=== PATIENT | male | born 1960 | race Caucasian/White ===

== ENCOUNTER 2016-06-24 22:53 | Inpatient (IN) | payer OTHER ==
[~2016-06-24] VITALS: Ht 172.7 cm; Wt 74.0 kg
[~2016-06-24 22:53] MED LIST: ALBUMIN HUMAN 5% 12.5 G/250 ML VIAL. IV ONE; FENTANYL PF 100 MCG/2 ML VIAL. ONE; IODIXANOL 320 MG/ML 100 ML VIAL. ONE; LIDOCAINE 2% 20 ML VIAL. ONE; MIDAZOLAM HCL 2 MG/2 ML VIAL. ONE; NITROGLYCERIN 50 MG/250 ML IV ONE
[2016-06-24 23:35] VITALS: BP 135/98
[2016-06-24 23:45] VITALS: BP 152/100
[2016-06-24] MEDS ORDERED: TIROFIBAN 12.5MG -0.9% NS 250 ML IV PRN (23:45)
[2016-06-24 23:59] VITALS: BP 158/109
[2016-06-25] VITALS (20 sets, daily range): BP systolic 99–163; BP diastolic 66–108
[2016-06-25] MEDS ORDERED: NITROGLYCERIN PREMIX 250 ML IV SCH
[2016-06-25] MEDS ORDERED: HEPARIN for IV BOLUS 10,000 UNIT/10 ML VIAL. IV PRN
[2016-06-25] MEDS ORDERED: NITROGLYCERIN PREMIX 250 ML IV PRN (00:15)
[2016-06-25] MEDS: IV NORMAL SALINE 1000ML BAG 1,000 ML IV SCH ×2 (00:26→16:40)
[2016-06-25 00:27] LABS: HEMOGLOBIN 15.6 g/dL (13.0-17.5); RED BLOOD COUNT 5.39 x10^6/uL (4.30-5.70); RED CELL DISTRIBUTION WIDTH 14.4 % (11.5-14.5); WHITE BLOOD COUNT 13.4 x10^3/uL (4.0-11.0)
[2016-06-25] MEDS: HEPARIN 25,000UTS/500ML PREMIX 500 ML IV PRN ×2 (00:27→22:53)
[2016-06-25 00:36] LABS: INR 1.1 (0.8-1.1); PROTHROMBIN TIME PATIENT 13.2 SEC (11.7-14.0)
[2016-06-25] MEDS ORDERED: NIAC500T PO (01:13)
[2016-06-25] MEDS ORDERED: ASPI1TAB30 PO (01:13)
[2016-06-25] MEDS ORDERED: INFLUENZA VAX SCREEN BY RX. MC ONE (02:00)
[2016-06-25] MEDS ORDERED: PNEUMOCOCCAL VAX SCREEN BY RX. MC ONE (02:00)
[2016-06-25 06:58] LABS: HEMATOCRIT 44.8 % (39.0-53.0); HEMOGLOBIN 14.6 g/dL (13.0-17.5); RED BLOOD COUNT 5.18 x10^6/uL (4.30-5.70); RED CELL DISTRIBUTION WIDTH 14.5 % (11.5-14.5)
[2016-06-25 07:19] LABS: CALCIUM 8.5 mg/dL (8.5-10.1); CREATININE 1.1 mg/dL (0.7-1.3); MAGNESIUM 1.8 mg/dL (1.8-2.4); POTASSIUM 3.8 mmol/L (3.5-5.1)
[2016-06-25] MEDS ORDERED: ONDANSETRON PF 4 MG/2 ML VIAL. ONE (07:45)
[2016-06-25] MEDS ORDERED: ONDANSETRON PF 4 MG/2 ML VIAL. IV PRN ×2 (08:00→15:30)
--- NOTE | 2016-06-25 08:48 | PDOC1 ---
History and Physical Past Medical History Cardiovascular: CAD Past Surgical History Past Surgical History: Other (hernia) Family History Family History CVA, CAD Social History Smoke: No ALCOHOL: rare Current Medications Current Medications Current Medications Medications (Trade) Dose Ordered Sig/Hayden Start Time Stop Time Status Last Admin Dose Admin Famotidine (Pepcid) 20 mg BID 06/25/16 09:00 Fentanyl Citrate (Fentanyl 2ml Vial) 100 mcg STK-MED ONCE 06/24/16 22:00 06/25/16 08:29 DC Heparin Sodium (Porcine) 1850 unit 1,850 unit PRN Q6HRS PRN 06/25/16 00:00 06/25/16 07:53 1,850 UNIT Heparin Sodium/ Dextrose 500 ml @ 0 mls/hr CONT PRN 06/25/16 00:00 06/25/16 00:27 17.574 MLS/HR Heparin Sodium/ Sodium Chloride 2,000 unit STK-MED ONCE 06/24/16 22:00 06/25/16 08:29 DC Influenza Virus Vaccine Quadrival (Fluarix Quad [id number] Syringe) 0.5 ml ONCE ONCE 06/25/16 09:00 06/25/16 09:01 Info (Do NOT chart on this placeholder) 1 each 1X ONCE 06/25/16 02:00 06/25/16 02:01 UNV Iodixanol (Visipaque 320) 200 ml STK-MED ONCE 06/24/16 22:00 06/25/16 08:29 DC Lidocaine HCl 20 ml STK-MED ONCE 06/24/16 22:00 06/25/16 08:29 DC Midazolam HCl (Versed) 2 mg STK-MED ONCE 06/24/16 22:00 06/25/16 08:29 DC Nitroglycerin/ Dextrose (Nitroglycerin Drip) 50 mg STK-MED ONCE 06/24/16 22:00 06/25/16 08:29 DC Ondansetron HCl (Zofran) 4 mg PRN Q6HRS PRN 06/25/16 08:00 06/25/16 08:03 4 MG Pneumococcal Polyvalent Vaccine (Do NOT chart on this placeholder) 1 each 1X ONCE 06/25/16 02:00 06/25/16 02:01 UNV Pneumococcal Polyvalent Vaccine (Pneumovax 23) 0.5 ml ONCE ONCE 06/25/16 09:00 06/25/16 09:01 Sodium Chloride (Iv Sodium Chloride 0.9% 1000ml Bag) 1,000 ml @ 60 mls/hr [id number] 06/25/16 00:00 06/25/16 00:26 60 MLS/HR Tirofiban/Sodium Chloride 250 ml @ 0 mls/hr CONT PRN 06/24/16 23:45 06/24/16 23:45 13.181 MLS/HR Allergies Allergies Allergies Coded Allergies Type Severity Reaction Last Updated Verified Sulfa (Sulfonamide Antibiotics) Allergy Intermediate 06/24/16 Yes ROS Review of System CONSTITUTIONAL: No fever or chills EYES: No recent changes SKIN: No rash or itching CARDIOVASCULAR: Epigastric pain RESPIRATORY: No SOB or cough GASTROINTESTINAL: No nausea, vomiting or abdominal pain NEUROLOGICAL: No headaches or weakness ENDOCRINE: No cold or heat intolerance GENITOURINARY: No urgency or frequency of urination MUSCULOSKELETAL: No back pain or joint pain LYMPHATICS: No enlarged lymph nodes PSYCHIATRIC: No anxiety or depression Physical Exam Physical Exam GEN.: No apparent distress. Alert and oriented. HEENT: Head is normocephalic, atraumatic NECK: Supple. no jvd LUNGS: Clear to auscultation. HEART: RRR, S1, S2 present. Peripheral pulses intact ABDOMEN: Soft, nontender. Positive bowel sounds. EXTREMITIES: Without any cyanosis. NEUROLOGIC: Normal speech, normal tone PSYCHIATRIC: Normal affect, normal mood. SKIN: No visible ulcerations Vitals Vitals Vital Signs Date Time Temp Pulse Resp B/P Pulse Ox O2 Delivery O2 Flow Rate FiO2 06/25/16 08:00 Nasal Cannula 2.0 06/25/16 08:00 97.7 70 16 133/83 99 97.7 Labs Labs Laboratory Tests Test 06/25/16 00:10 06/25/16 06:26 06/25/16 06:38 White Blood Count 13.4x10^3/uL (4.0-11.0) 8.0x10^3/uL (4.0-11.0) Red Blood Count 5.39x10^6/uL (4.30-5.70) 5.18x10^6/uL (4.30-5.70) Hemoglobin 15.6g/dL (13.0-17.5) 14.6g/dL (13.0-17.5) Hematocrit 47.0% (39.0-53.0) 44.8% (39.0-53.0) Mean Corpuscular Volume 87fL (79-100) 87fL (79-100) Mean Corpuscular Hemoglobin 29pg (25-35) 28pg (25-35) Mean Corpuscular Hemoglobin Concent 33g/dL (31-37) 33g/dL (31-37) Red Cell Distribution Width 14.4% (11.5-14.5) 14.5% (11.5-14.5) Platelet Count 204x10^3/uL (140-400) 219x10^3/uL (140-400) Prothrombin Time 13.2SEC (11.7-14.0) Prothromb Time International Ratio 1.1 (0.8-1.1) Activated Partial Thromboplast Time 51SEC (24-38) Heparin Anti-Xa Act, Unfractionated 0.12IU/mL (0.30-0.70) Sodium Level 137mmol/L (136-145) Potassium Level 3.8mmol/L (3.5-5.1) Chloride Level 102mmol/L (98-107) Carbon Dioxide Level 27mmol/L (21-32) Anion Gap 8 (6-14) Blood Urea Nitrogen 18mg/dL (8-26) Creatinine 1.1mg/dL (0.7-1.3) Estimated GFR (Cockcroft-Gault) 69.0 Glucose Level 116mg/dL (70-99) Calcium Level 8.5mg/dL (8.5-10.1) Magnesium Level 1.8mg/dL (1.8-2.4) Laboratory Tests Test 06/25/16 00:10 06/25/16 06:26 06/25/16 06:38 White Blood Count 13.4x10^3/uL (4.0-11.0) 8.0x10^3/uL (4.0-11.0) Red Blood Count 5.39x10^6/uL (4.30-5.70) 5.18x10^6/uL (4.30-5.70) Hemoglobin 15.6g/dL (13.0-17.5) 14.6g/dL (13.0-17.5) Hematocrit 47.0% (39.0-53.0) 44.8% (39.0-53.0) Mean Corpuscular Volume 87fL (79-100) 87fL (79-100) Mean Corpuscular Hemoglobin 29pg (25-35) 28pg (25-35) Mean Corpuscular Hemoglobin Concent 33g/dL (31-37) 33g/dL (31-37) Red Cell Distribution Width 14.4% (11.5-14.5) 14.5% (11.5-14.5) Platelet Count 204x10^3/uL (140-400) 219x10^3/uL (140-400) Prothrombin Time 13.2SEC (11.7-14.0) Prothromb Time International Ratio 1.1 (0.8-1.1) Activated Partial Thromboplast Time 51SEC (24-38) Heparin Anti-Xa Act, Unfractionated 0.12IU/mL (0.30-0.70) Sodium Level 137mmol/L (136-145) Potassium Level 3.8mmol/L (3.5-5.1) Chloride Level 102mmol/L (98-107) Carbon Dioxide Level 27mmol/L (21-32) Anion Gap 8 (6-14) Blood Urea Nitrogen 18mg/dL (8-26) Creatinine 1.1mg/dL (0.7-1.3) Estimated GFR (Cockcroft-Gault) 69.0 Glucose Level 116mg/dL (70-99) Calcium Level 8.5mg/dL (8.5-10.1) Magnesium Level 1.8mg/dL (1.8-2.4) VTE Prophylaxis Ordered VTE Prophylaxis Devices: Yes VTE Pharmacological Prophylaxi: Yes LA GUERRERO MD Jun 25, 2016 08:48
[2016-06-25] MEDS ORDERED: PNEUMOC CONJ VACC 23-VALENT 0.5 ML VIAL. VAX IM ONE (09:00)
[2016-06-25] MEDS ORDERED: FLU VACC QUAD 2016-17 (36MOS+)/PF 0.5 ML SYRINGE. VAX IM ONE (09:00)
--- NOTE | 2016-06-25 09:19 | EKG ---
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
--- NOTE | 2016-06-25 10:07 | PDOC2 ---
CONSULT Date of Consult Date of Consult DATE: 06/24/16 TIME: 10:30 PM Reason for Consult Reason for Consult: Acute IN Referring Physician Referring Physician: Dr. Sharma Identification/Chief Complaint Chief Complaint Chest pain Source Source: Patient History of Present Illness Reason for Visit: 55-year-old male initially presented to [facility] with crushing retrosternal chest pressure associated with mild shortness of breath that started one hour prior to presentation. EKG showed ST elevations in the anterior leads and hence patient was transferred to for further management. Patient continues to have retrosternal chest pain but denied any orthopnea/PND, palpitations or syncope. He stated that he had cardiac catheterization 10 years ago without any stent placement. Past Medical History Cardiovascular: CAD Past Surgical History Past Surgical History: Other (hernia) Social History No ALCOHOL: rare Current Medications Current Medications Current Medications Heparin Sodium/ Dextrose 500 ml @ 0 mls/hr CONT PRN IV SEE I/O RECORD Last administered on 06/25/16 00:27; Start 06/25/16 at 00:00 Heparin Sodium (Porcine) 1850 unit 1,850 unit PRN Q6HRS PRN IV FOR UFH LEVEL LESS THAN 0.2 Last administered on 06/25/16 07:53; Start 06/25/16 at 00:00 Tirofiban/Sodium Chloride 250 ml @ 0 mls/hr CONT PRN IV PER PROTOCOL Last administered on 06/24/16 23:45; Start 06/24/16 at 23:45 Nitroglycerin/ Dextrose 250 ml @ 0 mls/hr CONT IV ; Start 06/25/16 at 00:00; Status UNV Sodium Chloride 1,000 ml @ 60 mls/hr [id number] IV Last administered on 06/25/16 00:26; Start 06/25/16 at 00:00 Nitroglycerin/ Dextrose (Nitroglycerin Drip) 250 ml @ 20 mls/hr CONT PRN IV SEE I/O RECORD Last administered on 06/25/16 00:28; Start 06/25/16 at 00:15 Info (Do NOT chart on this placeholder) 1 each 1X ONCE MC ; Start 06/25/16 at 02 :00; Stop 06/25/16 at 02:01; Status UNV Pneumococcal Polyvalent Vaccine (Do NOT chart on this placeholder) 1 each 1X ONCE MC ; Start 06/25/16 at 02:00; Stop 06/25/16 at 02:01; Status UNV Influenza Virus Vaccine Quadrival (Fluarix Quad [id number] Syringe) 0.5 ml ONCE ONCE VAX IM ; Start 06/25/16 at 09:00; Stop 06/25/16 at 09:01; Status DC Pneumococcal Polyvalent Vaccine (Pneumovax 23) 0.5 ml ONCE ONCE VAX IM ; Start 06/25/16 at 09:00; Stop 06/25/16 at 09:01; Status DC Ondansetron HCl (Zofran) 4 mg STK-MED ONCE .ROUTE ; Start 06/25/16 at 07:45; Stop 06/25/16 at 07:46; Status DC Ondansetron HCl (Zofran) 4 mg PRN Q6HRS PRN IV NAUSEA/VOMITING 1ST CHOICE Last administered on 06/25/16t 08:03; Start 06/25/16 at 08:00 Famotidine (Pepcid) 20 mg BID PO ; Start 06/25/16 at 09:00 Fentanyl Citrate (Fentanyl 2ml Vial) 100 mcg STK-MED ONCE .ROUTE ; Start at 22:00; Stop 06/25/16 at 08:29; Status DC Heparin Sodium/ Sodium Chloride 2,000 unit STK-MED ONCE .ROUTE ; Start 06/24/16 at 22:00; Stop 06/25/16 at 08:29; Status DC Iodixanol (Visipaque 320) 200 ml STK-MED ONCE .ROUTE ; Start 06/24/16 at 22:00; Stop 06/25/16 at 08:29; Status DC Lidocaine HCl 20 ml STK-MED ONCE .ROUTE ; Start 06/24/16 at 22:00; Stop 06/25/16 at 08:29; Status DC Midazolam HCl (Versed) 2 mg STK-MED ONCE .ROUTE ; Start 06/24/16 at 22:00; Stop 06/25/16 at 08:29; Status DC Nitroglycerin/ Dextrose (Nitroglycerin Drip) 50 mg STK-MED ONCE IV ; Start at 22:00; Stop 06/25/16 at 08:29; Status DC Active Scripts Active Reported Niaspan (Niacin) 500 Mg Tab.er.24h 1 Tab PO DAILY Excedrin Migraine Caplet (Aspirin/Acetaminophen/Caffeine) 1 Each Tablet 1 Each PO PRN DAILY PRN Allergies Allergies: Coded Allergies: Sulfa (Sulfonamide Antibiotics) (Verified Allergy, Intermediate, 06/24/16) ROS PSYCHOLOGICAL ROS: No: Hallucinations Eyes: No Loss of vision HEENT: No: Epistaxis Respiratory: YES: Shortness of breath, No: Hemoptysis Cardiovascular: yes Chest Pain, No Palpitations Gastrointestinal: No Diarrhea, No Vomiting Genitourinary: No Hematuria Neurological: No Seizures Skin: No Rash Physical Exam General: Alert, Oriented X3 Lungs: Clear to auscultation Heart: Regular rate, Other (ESM 2/6 aortic area) Abdomen: Soft, No tenderness Extremities: No edema Neuro: Normal tone Psych/Mental Status: Mood NL Vitals VITALS Vital Signs Date Time Temp Pulse Resp B/P Pulse Ox O2 Delivery O2 Flow Rate FiO2 06/25/16 09:09 68 16 134/93 98 Nasal Cannula 2.0 06/25/16 08:00 97.7 97.7 Labs Labs Laboratory Tests Test 06/25/16 00:10 06/25/16 06:26 06/25/16 06:38 White Blood Count 13.4x10^3/uL (4.0-11.0) 8.0x10^3/uL (4.0-11.0) Red Blood Count 5.39x10^6/uL (4.30-5.70) 5.18x10^6/uL (4.30-5.70) Hemoglobin 15.6g/dL (13.0-17.5) 14.6g/dL (13.0-17.5) Hematocrit 47.0% (39.0-53.0) 44.8% (39.0-53.0) Mean Corpuscular Volume 87fL (79-100) 87fL (79-100) Mean Corpuscular Hemoglobin 29pg (25-35) 28pg (25-35) Mean Corpuscular Hemoglobin Concent 33g/dL (31-37) 33g/dL (31-37) Red Cell Distribution Width 14.4% (11.5-14.5) 14.5% (11.5-14.5) Platelet Count 204x10^3/uL (140-400) 219x10^3/uL (140-400) Prothrombin Time 13.2SEC (11.7-14.0) Prothromb Time International Ratio 1.1 (0.8-1.1) Activated Partial Thromboplast Time 51SEC (24-38) Heparin Anti-Xa Act, Unfractionated 0.12IU/mL (0.30-0.70) Sodium Level 137mmol/L (136-145) Potassium Level 3.8mmol/L (3.5-5.1) Chloride Level 102mmol/L (98-107) Carbon Dioxide Level 27mmol/L (21-32) Anion Gap 8 (6-14) Blood Urea Nitrogen 18mg/dL (8-26) Creatinine 1.1mg/dL (0.7-1.3) Estimated GFR (Cockcroft-Gault) 69.0 Glucose Level 116mg/dL (70-99) Calcium Level 8.5mg/dL (8.5-10.1) Magnesium Level 1.8mg/dL (1.8-2.4) Laboratory Tests Test 06/25/16 00:10 06/25/16 06:26 06/25/16 06:38 White Blood Count 13.4x10^3/uL (4.0-11.0) 8.0x10^3/uL (4.0-11.0) Red Blood Count 5.39x10^6/uL (4.30-5.70) 5.18x10^6/uL (4.30-5.70) Hemoglobin 15.6g/dL (13.0-17.5) 14.6g/dL (13.0-17.5) Hematocrit 47.0% (39.0-53.0) 44.8% (39.0-53.0) Mean Corpuscular Volume 87fL (79-100) 87fL (79-100) Mean Corpuscular Hemoglobin 29pg (25-35) 28pg (25-35) Mean Corpuscular Hemoglobin Concent 33g/dL (31-37) 33g/dL (31-37) Red Cell Distribution Width 14.4% (11.5-14.5) 14.5% (11.5-14.5) Platelet Count 204x10^3/uL (140-400) 219x10^3/uL (140-400) Prothrombin Time 13.2SEC (11.7-14.0) Prothromb Time International Ratio 1.1 (0.8-1.1) Activated Partial Thromboplast Time 51SEC (24-38) Heparin Anti-Xa Act, Unfractionated 0.12IU/mL (0.30-0.70) Sodium Level 137mmol/L (136-145) Potassium Level 3.8mmol/L (3.5-5.1) Chloride Level 102mmol/L (98-107) Carbon Dioxide Level 27mmol/L (21-32) Anion Gap 8 (6-14) Blood Urea Nitrogen 18mg/dL (8-26) Creatinine 1.1mg/dL (0.7-1.3) Estimated GFR (Cockcroft-Gault) 69.0 Glucose Level 116mg/dL (70-99) Calcium Level 8.5mg/dL (8.5-10.1) Magnesium Level 1.8mg/dL (1.8-2.4) Assessment/Plan Assessment/Plan Acute anterior wall ST elevation myocardial infarction based on EKG findings. Patient has ongoing chest pain. We will proceed with emergent cardiac catheterization and possible primary PCI/stent placement. Risks and benefits were explained. Patient already received aspirin and heparin at [facility]. DELILAH GUALLPA MD Jun 25, 2016 10:07
[2016-06-25] MEDS: FAMOTIDINE 20 MG TABLET. PO SCH ×2 (11:33→20:53)
[2016-06-25] MEDS: ANTI-COAG MONITOR BY PHARMACY. MC PRN (13:24)
[2016-06-25] MEDS ORDERED: ACETAMINOPHEN 500 MG TABLET PO PRN (13:30)
--- NOTE | 2016-06-25 13:31 | PDOC ---
MURRAY ANN RUG HOOKER 06/25/16 1331: CARDIO Progress Notes Date and Time Date of Service 06/25/2016 Time of Evaluation 1320 Subjective Subjective: No Chest Pain, No shortness of breath, No Palpitations, No Dizziness Vitals Vitals Vital Signs Date Time Temp Pulse Resp B/P Pulse Ox O2 Delivery O2 Flow Rate FiO2 06/25/16 13:08 98.1 80 16 120/77 98 Room Air 98.1 06/25/16 09:09 2.0 Weight Weight [ ] Input and Output Intake and Output Intake and Output 06/25/16 07:00 Intake Total 1324 ml Output Total 550 ml Balance 774 ml Intake Oral 720 ml IV Total 604 ml Output Urine Total 550 ml Laboratory Labs Laboratory Tests Test 06/25/16 00:10 06/25/16 06:26 06/25/16 06:38 White Blood Count 13.4x10^3/uL (4.0-11.0) 8.0x10^3/uL (4.0-11.0) Red Blood Count 5.39x10^6/uL (4.30-5.70) 5.18x10^6/uL (4.30-5.70) Hemoglobin 15.6g/dL (13.0-17.5) 14.6g/dL (13.0-17.5) Hematocrit 47.0% (39.0-53.0) 44.8% (39.0-53.0) Mean Corpuscular Volume 87fL (79-100) 87fL (79-100) Mean Corpuscular Hemoglobin 29pg (25-35) 28pg (25-35) Mean Corpuscular Hemoglobin Concent 33g/dL (31-37) 33g/dL (31-37) Red Cell Distribution Width 14.4% (11.5-14.5) 14.5% (11.5-14.5) Platelet Count 204x10^3/uL (140-400) 219x10^3/uL (140-400) Prothrombin Time 13.2SEC (11.7-14.0) Prothromb Time International Ratio 1.1 (0.8-1.1) Activated Partial Thromboplast Time 51SEC (24-38) Heparin Anti-Xa Act, Unfractionated 0.12IU/mL (0.30-0.70) Sodium Level 137mmol/L (136-145) Potassium Level 3.8mmol/L (3.5-5.1) Chloride Level 102mmol/L (98-107) Carbon Dioxide Level 27mmol/L (21-32) Anion Gap 8 (6-14) Blood Urea Nitrogen 18mg/dL (8-26) Creatinine 1.1mg/dL (0.7-1.3) Estimated GFR (Cockcroft-Gault) 69.0 Glucose Level 116mg/dL (70-99) Calcium Level 8.5mg/dL (8.5-10.1) Magnesium Level 1.8mg/dL (1.8-2.4) Physical Exam HEENT: Neck Supple W Full Motion Chest: Symmetric LUNGS: Clear to Auscultation Heart: S1S2, RRR Abdomen: Soft N/T Extremities: No Calf Tenderness Neurology: alert, oriented, follow commands Other Exams right groin arteriotomy site intact, neurovascular status to bilateral LE intact Assessment Assessment 1. STEMI: LHC noted with 3VD 2. VIDALES: due to NTG Recommendation 1. DC NTG, tylenol 2. Consult CTS 3. Continue with heparin drip, IVF. Aggrastat DC at 1800 4. TSH, lipid panel, LFTs. 5. ASA. Statin to start per lipid level. BB. 6. Hold ACEi/ARB for possible CABG. 7. TTE today. 8. Mechanical VTE and GI prophylaxis. DELILAH GUALLPA MD 06/26/16 0842: CARDIO Progress Notes Assessment Assessment Patient seen and examined 06/25/16. Agree with RISK TECH's assessment and plan. Patient is presently chest pain-free off nitroglycerin infusion. Continue heparin and Aggrastat infusions. Plan for coronary artery bypass surgery on Thursday per CTS. MURRAY ANN APRN Jun 25, 2016 13:31 DELILAH GUALLPA MD Jun 26, 2016 08:42
[2016-06-25 14:16] LABS: ALBUMIN 3.2 g/dL (3.4-5.0); DIRECT BILIRUBIN 0.1 mg/dL (0.0-0.2); TOTAL BILIRUBIN 0.5 mg/dL (0.2-1.0)
[2016-06-25 14:21] LABS: CHOLESTEROL/HDL RATIO 4.3
[2016-06-25] MEDS: ASPIRIN ENTERIC COATED 81 MG TABLET.DR. PO SCH (15:15)
[2016-06-25] MEDS: METOPROLOL TART IMMED RELEASE 25 MG TABLET PO SCH ×2 (15:16→20:54)
[2016-06-25] MEDS ORDERED: HYDROCODONE/APAP 5/325MG TABLET. PO PRN (15:30)
[2016-06-25] MEDS ORDERED: hydrALAZINE 20 MG/ML VIAL. IVP PRN (15:30)
[2016-06-25] MEDS ORDERED: ACETAMINOPHEN 325 MG TABLET. PO PRN (15:30)
[2016-06-25] MEDS ORDERED: ALBUTEROL SULFATE 2.5 MG/3 ML NEBU. NEB PRN (15:30)
--- NOTE | 2016-06-25 15:37 | PDOC2 ---
CONSULT Date of Consult Date of Consult DATE: 06/25/16 TIME: 15:23 Reason for Consult Reason for Consult: ST elevation myocardial infarction Referring Physician Referring Physician: Brian Iglesias MD Source Source: Chart review, Patient History of Present Illness Reason for Visit: The patient is a 55-year-old male with no previous significant medical history, but a strong family history of ischemic heart disease who presented yesterday to [facility] with crushing chest pain. On EKG his ST segments were elevated in the anterior leads and he was emergently transferred to the catheter lab. His left heart catheterization demonstrated a very tight proximal LAD stenosis with an additional proximal to mid stenotic segment, a 80-90% proximal left circumflex stenosis and a totally occluded proximal RCA. His ejection fraction on the LV gram was 30%. The LAD was most likely the culprit lesion but there was flow distally in the ST elevation resolved. He is currently chest pain-free on a heparin and nitroglycerin drip. I was consulted to consider the patient for surgical coronary revascularization. Past Medical History Cardiovascular: CAD Past Surgical History Past Surgical History: Hernia Repair, Other (hernia) Family History Family History: Coronary Artery Disease, Heart Disease, High Cholestrol, Stroke Social History No ALCOHOL: rare Current Medications Current Medications Current Medications Heparin Sodium/ Dextrose 500 ml @ 0 mls/hr CONT PRN IV SEE I/O RECORD Last administered on 06/25/16 00:27; Start 06/25/16 at 00:00 Heparin Sodium (Porcine) 1850 unit 1,850 unit PRN Q6HRS PRN IV FOR UFH LEVEL LESS THAN 0.2 Last administered on 06/25/16 07:53; Start 06/25/16 at 00:00 Tirofiban/Sodium Chloride 250 ml @ 0 mls/hr CONT PRN IV PER PROTOCOL Last administered on 06/24/16 23:45; Start 06/24/16 at 23:45 Nitroglycerin/ Dextrose 250 ml @ 0 mls/hr CONT IV ; Start 06/25/16 at 00:00; Status UNV Sodium Chloride 1,000 ml @ 60 mls/hr [id number] IV Last administered on 06/25/16 00:26; Start 06/25/16 at 00:00 Nitroglycerin/ Dextrose (Nitroglycerin Drip) 250 ml @ 20 mls/hr CONT PRN IV SEE I/O RECORD Last administered on 06/25/16 00:28; Start 06/25/16 at 00:15; Stop 06/25/16 at 13:32; Status DC Info (Do NOT chart on this placeholder) 1 each 1X ONCE MC ; Start 06/25/16 at 02 :00; Stop 06/25/16 at 02:01; Status UNV Pneumococcal Polyvalent Vaccine (Do NOT chart on this placeholder) 1 each 1X ONCE MC ; Start 06/25/16 at 02:00; Stop 06/25/16 at 02:01; Status UNV Influenza Virus Vaccine Quadrival (Fluarix Quad [id number] Syringe) 0.5 ml ONCE ONCE VAX IM Last administered on 06/25/16 11:39; Start 06/25/16 at 09:00; Stop 06/25/16 at 09:01; Status DC Pneumococcal Polyvalent Vaccine (Pneumovax 23) 0.5 ml ONCE ONCE VAX IM Last administered on 06/25/16 11:35; Start 06/25/16 at 09:00; Stop 06/25/16 at 09:01; Status DC Ondansetron HCl (Zofran) 4 mg STK-MED ONCE .ROUTE ; Start 06/25/16 at 07:45; Stop 06/25/16 at 07:46; Status DC Ondansetron HCl (Zofran) 4 mg PRN Q6HRS PRN IV NAUSEA/VOMITING 1ST CHOICE Last administered on 06/25/16 08:03; Start 06/25/16 at 08:00 Famotidine (Pepcid) 20 mg BID PO Last administered on 06/25/16 11:33; Start 06/25/16 at 09:00 Fentanyl Citrate (Fentanyl 2ml Vial) 100 mcg STK-MED ONCE .ROUTE ; Start at 22:00; Stop 06/25/16 at 08:29; Status DC Heparin Sodium/ Sodium Chloride 2,000 unit STK-MED ONCE .ROUTE ; Start 06/24/16 at 22:00; Stop 06/25/16 at 08:29; Status DC Iodixanol (Visipaque 320) 200 ml STK-MED ONCE .ROUTE ; Start 06/24/16 at 22:00; Stop 06/25/16 at 08:29; Status DC Lidocaine HCl 20 ml STK-MED ONCE .ROUTE ; Start 06/24/16 at 22:00; Stop 06/25/16 at 08:29; Status DC Midazolam HCl (Versed) 2 mg STK-MED ONCE .ROUTE ; Start 06/24/16 at 22:00; Stop 06/25/16 at 08:29; Status DC Nitroglycerin/ Dextrose (Nitroglycerin Drip) 50 mg STK-MED ONCE IV ; Start at 22:00; Stop 06/25/16 at 08:29; Status DC Info (Anti-Coagulation Monitoring By Pharmacy) 1 each PRN DAILY PRN MC SEE COMMENTS Last administered on 06/25/16 13:24; Start 06/25/16 at 13:30 Aspirin (Ecotrin) 81 mg [id number] PO Last administered on 06/25/16 15:15; Start 06/25/16 at 14:00 Metoprolol Tartrate (Lopressor) 12.5 mg BID PO Last administered on 06/25/16 15 :16; Start 06/25/16 at 14:00 Acetaminophen (Tylenol) 500 mg PRN Q6HRS PRN PO MILD PAIN / TEMP Last administered on 06/25/16 15:15; Start 06/25/16 at 13:30 Atorvastatin Calcium (Lipitor) 40 mg QHS PO ; Start 06/25/16 at 21:00 Active Scripts Active Reported Niaspan (Niacin) 500 Mg Tab.er.24h 1 Tab PO DAILY Excedrin Migraine Caplet (Aspirin/Acetaminophen/Caffeine) 1 Each Tablet 1 Each PO PRN DAILY PRN Allergies Allergies: Coded Allergies: Sulfa (Sulfonamide Antibiotics) (Verified Allergy, Intermediate, 06/24/16) ROS General: No: Appetite, Chills, Fatigue, Malaise, Night Sweats PSYCHOLOGICAL ROS: No: Anxiety, Behavioral Disorder, Concentration difficultie , Decreased libido, Depression, Disorientation, Hallucinations, Hostility, Irritablity, Memory difficulties, Mood Swings, Obsessive thoughts, Physical abuse, Sexual abuse, Sleep disturbances, Suicidal ideation Eyes: No Blurry vision, No Decreased vision, No Double vision, No Dry eyes, No Excessive tearing, No Eye Pain, No Itchy Eyes, No Loss of vision, No Photophobia , No Scotomata, No Uses contacts, No Uses glasses HEENT: No: Epistaxis, Heacaches, Hearing change, Nasal congestion, Nasal discharge, Oral lesions, Sinus pain, Sneezing, Snoring, Sore Throat, Tinnitus, Vertigo, Visual Changes, Vocal changes ALLERGY AND IMMUNOLOGY: No: Hives, Insect Bite Sensitivity, Itchy/Watery Eyes, Nasal Congestion, Post Nasal Drip, Seasonal Allergies Hematological and Lymphatic: No: Bleeding Problems, Blood Clots, Blood Transfusions, Brusing, Night Sweats, Pallor, Swollen Lymph Nodes ENDOCRINE: No: Breast Changes, Galactorrhea, Hair Pattern Changes, Hot Flashes , Malaise/lethargy, Mood Swings, Palpitations, Polydipsia/polyuria, Skin Changes , Temperature Intolerance, Unexpected Weight Changes Respiratory: No: Cough, Hemoptysis, Orthopnea, Pleuritic Pain, SOB with excertion, Shortness of breath, Sputum Changes, Stridor, Tachypnea, Wheezing Cardiovascular: yes Chest Pain, No Edema, No Lt Headedness, No Orthopnea, No Palpitations, No Paroxysmal Noc. Dyspnea Gastrointestinal: No Abdominal Pain, No Constipation, No Diarrhea, No Hematochezia, No Melena, No Nausea, No Vomiting Genitourinary: No Discharge, No Dysuria, No Flank Pain, No Frequency, No Hematuria, No Incontinence, No Pain, No Retention, No Urgency Musculoskeletal: No Gait Disturbance, No Joint Pain, No Joint Stiffness, No Joint Swelling, No Muscle Pain, No Muscular Weakness, No Pain In:, No Swelling In: Neurological: No Behavorial Changes, No Bowel/Bladder ControlChng, No Confusion , No Dizziness, No Gait Disturbance, No Headaches, No Impaired Coord/balance, No Memory Loss, No Numbness/Tingling, No Seizures, No Speech Problems, No Tremors, No Visual Changes, No Weakness Skin: No Acne, No Dry Skin, No Eczema, No Hair Changes, No Lumps, No Mole Changes, No Mottling, No Nail Changes, No Pruritus, No Rash, No Skin Lesion Changes Physical Exam General: Alert, Oriented X3, Cooperative, No acute distress HEENT: Atraumatic, PERRLA, EOMI Lungs: Clear to auscultation, Normal air movement Heart: Regular rate, Normal S1, Normal S2, No murmurs Abdomen: Soft, No tenderness Extremities: No edema Skin: No significant lesion Neuro: Normal gait, Normal speech, Strength at 5/5 X4 ext, Normal tone, Sensation intact, Cranial nerves 3-12 NL Psych/Mental Status: Mental status NL MUSCULOSKELETAL: No deformity Vitals VITALS Vital Signs Date Time Temp Pulse Resp B/P Pulse Ox O2 Delivery O2 Flow Rate FiO2 06/25/16 15:16 96 126/72 06/25/16 14:00 16 98 Room Air 06/25/16 13:08 98.1 98.1 06/25/16 09:09 2.0 Labs Labs Laboratory Tests Test 06/25/16 00:10 06/25/16 06:26 06/25/16 06:38 06/25/16 13:00 White Blood Count 13.4x10^3/uL (4.0-11.0) 8.0x10^3/uL (4.0-11.0) Red Blood Count 5.39x10^6/uL (4.30-5.70) 5.18x10^6/uL (4.30-5.70) Hemoglobin 15.6g/dL (13.0-17.5) 14.6g/dL (13.0-17.5) Hematocrit 47.0% (39.0-53.0) 44.8% (39.0-53.0) Mean Corpuscular Volume 87fL (79-100) 87fL (79-100) Mean Corpuscular Hemoglobin 29pg (25-35) 28pg (25-35) Mean Corpuscular Hemoglobin Concent 33g/dL (31-37) 33g/dL (31-37) Red Cell Distribution Width 14.4% (11.5-14.5) 14.5% (11.5-14.5) Platelet Count 204x10^3/uL (140-400) 219x10^3/uL (140-400) Prothrombin Time 13.2SEC (11.7-14.0) Prothromb Time International Ratio 1.1 (0.8-1.1) Activated Partial Thromboplast Time 51SEC (24-38) Heparin Anti-Xa Act, Unfractionated 0.12IU/mL (0.30-0.70) 0.42IU/mL (0.30-0.70) Sodium Level 137mmol/L (136-145) Potassium Level 3.8mmol/L (3.5-5.1) Chloride Level 102mmol/L (98-107) Carbon Dioxide Level 27mmol/L (21-32) Anion Gap 8 (6-14) Blood Urea Nitrogen 18mg/dL (8-26) Creatinine 1.1mg/dL (0.7-1.3) Estimated GFR (Cockcroft-Gault) 69.0 Glucose Level 116mg/dL (70-99) Calcium Level 8.5mg/dL (8.5-10.1) Magnesium Level 1.8mg/dL (1.8-2.4) Total Bilirubin 0.5mg/dL (0.2-1.0) Direct Bilirubin 0.1mg/dL (0.0-0.2) Aspartate Amino Transf (AST/SGOT) 217U/L (15-37) Alanine Aminotransferase (ALT/SGPT) 59U/L (16-63) Alkaline Phosphatase 42U/L (46-116) Total Protein 7.0g/dL (6.4-8.2) Albumin 3.2g/dL (3.4-5.0) Triglycerides Level 103mg/dL (0-150) Cholesterol Level 208mg/dL (0-200) LDL Cholesterol, Calculated 139mg/dL (0-100) VLDL Cholesterol, Calculated 21mg/dL (0-40) HDL Cholesterol 48mg/dL (40-60) Cholesterol/HDL Ratio 4.3 Thyroid Stimulating Hormone (TSH) 0.917uIU/mL (0.358-3.74) Laboratory Tests Test 06/25/16 00:10 06/25/16 06:26 06/25/16 06:38 06/25/16 13:00 White Blood Count 13.4x10^3/uL (4.0-11.0) 8.0x10^3/uL (4.0-11.0) Red Blood Count 5.39x10^6/uL (4.30-5.70) 5.18x10^6/uL (4.30-5.70) Hemoglobin 15.6g/dL (13.0-17.5) 14.6g/dL (13.0-17.5) Hematocrit 47.0% (39.0-53.0) 44.8% (39.0-53.0) Mean Corpuscular Volume 87fL (79-100) 87fL (79-100) Mean Corpuscular Hemoglobin 29pg (25-35) 28pg (25-35) Mean Corpuscular Hemoglobin Concent 33g/dL (31-37) 33g/dL (31-37) Red Cell Distribution Width 14.4% (11.5-14.5) 14.5% (11.5-14.5) Platelet Count 204x10^3/uL (140-400) 219x10^3/uL (140-400) Prothrombin Time 13.2SEC (11.7-14.0) Prothromb Time International Ratio 1.1 (0.8-1.1) Activated Partial Thromboplast Time 51SEC (24-38) Heparin Anti-Xa Act, Unfractionated 0.12IU/mL (0.30-0.70) 0.42IU/mL (0.30-0.70) Sodium Level 137mmol/L (136-145) Potassium Level 3.8mmol/L (3.5-5.1) Chloride Level 102mmol/L (98-107) Carbon Dioxide Level 27mmol/L (21-32) Anion Gap 8 (6-14) Blood Urea Nitrogen 18mg/dL (8-26) Creatinine 1.1mg/dL (0.7-1.3) Estimated GFR (Cockcroft-Gault) 69.0 Glucose Level 116mg/dL (70-99) Calcium Level 8.5mg/dL (8.5-10.1) Magnesium Level 1.8mg/dL (1.8-2.4) Total Bilirubin 0.5mg/dL (0.2-1.0) Direct Bilirubin 0.1mg/dL (0.0-0.2) Aspartate Amino Transf (AST/SGOT) 217U/L (15-37) Alanine Aminotransferase (ALT/SGPT) 59U/L (16-63) Alkaline Phosphatase 42U/L (46-116) Total Protein 7.0g/dL (6.4-8.2) Albumin 3.2g/dL (3.4-5.0) Triglycerides Level 103mg/dL (0-150) Cholesterol Level 208mg/dL (0-200) LDL Cholesterol, Calculated 139mg/dL (0-100) VLDL Cholesterol, Calculated 21mg/dL (0-40) HDL Cholesterol 48mg/dL (40-60) Cholesterol/HDL Ratio 4.3 Thyroid Stimulating Hormone (TSH) 0.917uIU/mL (0.358-3.74) Assessment/Plan Assessment/Plan 55-year-old male with no previous significant medical history, but a strong family history of ischemic heart disease who presented yesterday with a ST elevation myocardial infarction. He was emergently transferred to the catheter lab and left heart catheterization demonstrated a very tight proximal LAD stenosis with an additional proximal to mid stenotic segment, a 80-90% proximal left circumflex stenosis and a totally occluded proximal RCA. His ejection fraction on the LV gram was 30%. The LAD was most likely the culprit lesion but there was flow distally in the ST elevation resolved. He is currently chest pain -free. Impression Severe three-vessel coronary artery disease with depressed LV function. The patient is a candidate for CABG. I quoted a mortality of 2-4% owing to his severe ischemic cardiomyopathy, a 1-2 % risk of renal failure, stroke, respiratory failure, myocardial infarction, 5% risk of chest infection, wound infection, re-sternotomy for hemorrhage and a 20- 30% risk of postoperative arrhythmias. The patient had accepts these risks and agrees to proceed. Plan for CABG 3 (HUNTER to LAD, SVG to OM, SVG to distal RCA) on Monday, June 27, 2016. Will obtain: Echo Carotid duplex Bilateral lower extremity vein mapping vein mapping Noncontrast CT of the chest x-match to units [facility] JESS KEEN MD Jun 25, 2016 15:37
--- NOTE | 2016-06-25 16:53 | CARD ---
APPROVED REPORT EXAM: Two-dimensional and M-mode echocardiogram with Doppler and color Doppler. Other Information Quality : Average Rhythm : NSR INDICATION STEMI 2D DIMENSIONS RVDd2.1 (2.9-3.5cm)Left Atrium(2D)2.6 (1.6-4.0cm) IVSd1.0 (0.7-1.1cm)Aortic Root(2D)3.1 (2.0-3.7cm) LVDd4.3 (3.9-5.9cm)LVOT Diameter2.0 (1.8-2.4cm) PWd1.0 (0.7-1.1cm)LVDs3.3 (2.5-4.0cm) FS (%) 24.6 %SV41.3 ml LVEF(%)49.1 (>50%) Aortic Valve AoV Peak Jeremías.124.8cm/sAoV VTI22.1cm AO Peak GR.6.2mmHgLVOT VTI 20.84cm AO Mean GR.4mmHgAVA (VTI)3.00cm2 Mitral Valve MV E Kuepsfaz60.7cm/sMV E Peak Gr.103mmHg MV DECEL [id number] A Vcjertij49.0cm/s MV E Mean Gr.2mmHgMV AOW11wn E/A Ratio1.1MV A Vatbxakg19hk MVA (PHT)3.06cm2 TDI Lateral E' P. V10.07cm/sMedial E' P. V6.61cm/s E/Lateral E'8.8E/Medial E'13.4 Tricuspid Valve TR P. Uphhnqli640rc/sRAP VCVDBREJ2gnAl TR Peak Gr.01hqPkRUEQ62cqDd Pulmonary Vein S1 Twgoqtgr92.2cm/sS2 Pvvhmbzb93.25cm/s D2 Dcdieisf41.3cm/s LEFT VENTRICLE The left ventricle is normal size. There is normal left ventricular wall thickness. Severe hypokinesi s of mid to distal anterior and anteroseptal mae and apical wall. The Ejection Fraction is 35-40%. Tissue Doppler imaging reveals moderate left ventricular diastolic dysfunction. RIGHT VENTRICLE The right ventricle is normal size. The right ventricular systolic function is normal. ATRIA The left atrium size is normal. The right atrium size is normal. The interatrial septum is intact wit h no evidence for an atrial septal defect or patent foramen ovale as noted on 2-D or Doppler imaging. AORTIC VALVE The aortic valve is normal in structure and function. The aortic valve is trileaflet. Doppler and Col or Flow revealed no significant aortic regurgitation. There is no significant aortic valvular stenosi s. MITRAL VALVE The mitral valve leaflets are thickened. There is no mitral valve stenosis. Doppler and Color Flow re vealed mild to moderate mitral regurgitation. TRICUSPID VALVE The tricuspid valve is normal in structure and function. Doppler and Color Flow revealed mild tricusp id regurgitation. The PA pressure was estimated at 35 mmHg. There is no tricuspid valve stenosis. PULMONIC VALVE The pulmonic valve is not well visualized. Doppler and Color Flow revealed no pulmonic valvular regur gitation. There is no pulmonic valvular stenosis. GREAT VESSELS The aortic root is normal in size. Normal pulmonary venous flow (Doppler). The IVC is normal in size and collapses >50% with inspiration. PERICARDIAL EFFUSION There is no evidence of significant pericardial effusion. Critical Notification Critical Value: No <Conclusion> Severe hypokinesis of mid to distal anterior and anteroseptal mae and apical wall. The Ejection Fraction is 35-40%. Tissue Doppler imaging reveals moderate left ventricular diastolic dysfunction. Mild to moderate mitral regurgitation. Mld tricuspid regurgitation. The PA pressure was estimated at 35 mmHg. There is no evidence of significant pericardial effusion.
[2016-06-25] MEDS: ATORVASTATIN CALCIUM 40 MG TABLET. PO SCH (20:53)
--- NOTE | 2016-06-25 23:46 | HP ---
ADMIT DATE: 06/25/2016 CHIEF COMPLAINT: Chest pressure. HISTORY OF PRESENT ILLNESS: A 55-year-old male patient with prior history of coronary artery disease, presented to the [place] ER with complaints of chest pressure and epigastric pain, symptoms lasted for a few hours at the time of arrival, the patient was diagnosed with ST elevation VA in anterior leads. The patient was transferred to [place] for PCI. The patient had emergency cardiac catheterization; however, he did not have any PCI. At the time of my examination, the patient denies any symptoms. His symptoms resolved when he came out of cardiac cath. He denies any palpitations, nausea or vomiting. His symptoms are completely different from prior heart attack. PAST MEDICAL HISTORY: Coronary artery disease. PAST SURGICAL HISTORY: Hernia repair. PERSONAL HISTORY: Former smoker, no alcohol, no drug abuse. FAMILY HISTORY: Sister has coronary artery disease. HOME MEDICATIONS: Reviewed and reconciled. Please see the MRAD. ALLERGIES: NKDA. REVIEW OF SYSTEMS: Please see my electronic H and P. PHYSICAL EXAMINATION: Please see my electronic H and P. LABORATORY FINDINGS: WBC 13.4, hemoglobin 15.6, MCV is 87, platelets 204. Chemistry: Sodium is 137, potassium is 3.8, chloride is 102, carbon dioxide 27, anion gap is 8, BUN is 18, creatinine is 1.1, glucose 116, AST 217, alkaline phosphatase 52. Triglycerides 103, cholesterol 208, LDL cholesterol 139. IMAGING STUDIES: EKG personally reviewed, ST elevations seen on the anterior leads, V2 to V4. ASSESSMENT: 1. ST elevation VA, anterior wall. 2. Prior history of coronary artery disease. PLAN: 1. The patient had an emergent cardiac catheterization; however, did not have a PCI. Currently, he is on heparin gtt and cardiac risk factor modification such as metoprolol, aspirin. 2. At the time of my examination, the patient is chest pain free and Cardiology has been following and also Cardiothoracic Surgery has been consulted for possible CABG. 3. The patient has been monitored in ICU for any arrhythmias or any cardiovascular events. Labs ordered with CBC, BMP in a.m. 4. No DVT prophylaxis. LA GUERRERO MD DR: MICHELLE/briseyda JOB#: [id number] / [id number]
[2016-06-26 03:00] VITALS: BP 119/73
[2016-06-26 04:51] LABS: BASO # 0.1 x10^3/uL (0.0-0.2); BASO % 1 % (0-3); EOS % 1 % (0-3); HEMATOCRIT 42.8 % (39.0-53.0); HEMOGLOBIN 14.1 g/dL (13.0-17.5); LYMPH # 1.1 x10^3/uL (1.0-4.8); LYMPH % 15 % (24-48); MEAN CORPUSCULAR HEMOGLOBIN 29 pg (25-35); MEAN CORPUSCULAR HGB CONC 33 g/dL (31-37); MEAN CORPUSCULAR VOLUME 87 fL (79-100); MONO % 9 % (0-9); NEUT % 74 % (31-73); PLATELET COUNT 174 x10^3/uL (140-400); RED BLOOD COUNT 4.93 x10^6/uL (4.30-5.70); RED CELL DISTRIBUTION WIDTH 14.6 % (11.5-14.5); WHITE BLOOD COUNT 7.1 x10^3/uL (4.0-11.0)
[2016-06-26 05:01] LABS: CREATININE 0.9 mg/dL (0.7-1.3); POTASSIUM 3.7 mmol/L (3.5-5.1)
[2016-06-26 08:00] VITALS: BP 133/88
[2016-06-26] MEDS: ANTI-COAG MONITOR BY PHARMACY. MC PRN (08:35)
[2016-06-26] MEDS: METOPROLOL TART IMMED RELEASE 25 MG TABLET PO SCH ×2 (08:40→21:34)
[2016-06-26] MEDS: ASPIRIN ENTERIC COATED 81 MG TABLET.DR. PO SCH (08:40)
[2016-06-26] MEDS: FAMOTIDINE 20 MG TABLET. PO SCH ×2 (08:41→21:33)
[2016-06-26] MEDS: IV NORMAL SALINE 1000ML BAG 1,000 ML IV SCH ×2 (08:43→22:57)
--- NOTE | 2016-06-26 08:54 | RAD ---
Indication chest pain. Anticipated coronary artery bypass surgery. Noncontrast imaging through the chest was performed. No prior imaging of the chest is available. Imaging through the upper abdomen is essentially unremarkable. There are occasional low density masses in the liver which are incompletely evaluated on this exam but likely reflect incidental cysts. There are a few calcified mediastinal lymph nodes. No pathologic mediastinal or hilar adenopathy is seen. Coronary artery calcification is noted. There is no significant plaquing of the ascending aorta. Minimal plaquing is seen involving the distal arch and the descending thoracic aorta. There are several pulmonary nodules some of which are calcified. A dominant soft tissue mass or acute finding in the chest is not seen. IMPRESSION: No acute finding in the chest. No significant plaquing associated with the ascending thoracic aorta. Multiple pulmonary nodules both calcified and noncalcified in nature Probable hepatic cysts PQRS Compliance Statement: One or more of the following individualized dose reduction techniques were utilized for this examination: 1. Automated exposure control 2. Adjustment of the mA and/or kV according to patient size 3. Use of iterative reconstruction technique
--- NOTE | 2016-06-26 09:09 | PDOC ---
PROGRESS NOTES Chief Complaint Chief Complaint A/P 1. ST elevation [place], anterior wall. 2. Multi vessel CAD Plan echo CABG in AM vein mapping labs reviwed cardiology and CVTS following History of Present Illness History of Present Illness No chest pain no fever no chills Vitals Vitals Vital Signs Date Time Temp Pulse Resp B/P Pulse Ox O2 Delivery O2 Flow Rate FiO2 06/26/16 08:40 82 133/88 06/26/16 03:00 98.7 14 97 Room Air 98.7 06/25/16 09:09 2.0 Physical Exam General: Alert, Oriented X3, Cooperative, No acute distress Heart: Regular rate, Normal S1, Normal S2, No murmurs Lungs: Clear Abdomen: Normal bowel sounds, Soft, No tenderness Extremities: No edema Skin: No significant lesion Labs LABS Laboratory Tests Test 06/25/16 13:00 06/25/16 19:45 06/26/16 04:30 Heparin Anti-Xa Act, Unfractionated 0.42IU/mL (0.30-0.70) 0.20IU/mL (0.30-0.70) 0.37IU/mL (0.30-0.70) Total Bilirubin 0.5mg/dL (0.2-1.0) Direct Bilirubin 0.1mg/dL (0.0-0.2) Aspartate Amino Transf (AST/SGOT) 217U/L (15-37) Alanine Aminotransferase (ALT/SGPT) 59U/L (16-63) Alkaline Phosphatase 42U/L (46-116) Total Protein 7.0g/dL (6.4-8.2) Albumin 3.2g/dL (3.4-5.0) Triglycerides Level 103mg/dL (0-150) Cholesterol Level 208mg/dL (0-200) LDL Cholesterol, Calculated 139mg/dL (0-100) VLDL Cholesterol, Calculated 21mg/dL (0-40) HDL Cholesterol 48mg/dL (40-60) Cholesterol/HDL Ratio 4.3 Thyroid Stimulating Hormone (TSH) 0.917uIU/mL (0.358-3.74) White Blood Count 7.1x10^3/uL (4.0-11.0) Red Blood Count 4.93x10^6/uL (4.30-5.70) Hemoglobin 14.1g/dL (13.0-17.5) Hematocrit 42.8% (39.0-53.0) Mean Corpuscular Volume 87fL (79-100) Mean Corpuscular Hemoglobin 29pg (25-35) Mean Corpuscular Hemoglobin Concent 33g/dL (31-37) Red Cell Distribution Width 14.6% (11.5-14.5) Platelet Count 174x10^3/uL (140-400) Neutrophils (%) (Auto) 74% (31-73) Lymphocytes (%) (Auto) 15% (24-48) Monocytes (%) (Auto) 9% (0-9) Eosinophils (%) (Auto) 1% (0-3) Basophils (%) (Auto) 1% (0-3) Neutrophils # (Auto) 5.2x10^3uL (1.8-7.7) Lymphocytes # (Auto) 1.1x10^3/uL (1.0-4.8) Monocytes # (Auto) 0.7x10^3/uL (0.0-1.1) Eosinophils # (Auto) 0.1x10^3/uL (0.0-0.7) Basophils # (Auto) 0.1x10^3/uL (0.0-0.2) Sodium Level 140mmol/L (136-145) Potassium Level 3.7mmol/L (3.5-5.1) Chloride Level 105mmol/L (98-107) Carbon Dioxide Level 27mmol/L (21-32) Anion Gap 8 (6-14) Blood Urea Nitrogen 12mg/dL (8-26) Creatinine 0.9mg/dL (0.7-1.3) Estimated GFR (Cockcroft-Gault) 87.0 Glucose Level 110mg/dL (70-99) Calcium Level 8.0mg/dL (8.5-10.1) Comment Review of Relevant I have reviewed the following items fco (where applicable) has been applied. Labs Laboratory Tests Test 06/25/16 00:10 06/25/16 06:26 06/25/16 06:38 06/25/16 07:00 White Blood Count 13.4x10^3/uL (4.0-11.0) 8.0x10^3/uL (4.0-11.0) Red Blood Count 5.39x10^6/uL (4.30-5.70) 5.18x10^6/uL (4.30-5.70) Hemoglobin 15.6g/dL (13.0-17.5) 14.6g/dL (13.0-17.5) Hematocrit 47.0% (39.0-53.0) 44.8% (39.0-53.0) Mean Corpuscular Volume 87fL (79-100) 87fL (79-100) Mean Corpuscular Hemoglobin 29pg (25-35) 28pg (25-35) Mean Corpuscular Hemoglobin Concent 33g/dL (31-37) 33g/dL (31-37) Red Cell Distribution Width 14.4% (11.5-14.5) 14.5% (11.5-14.5) Platelet Count 204x10^3/uL (140-400) 219x10^3/uL (140-400) Prothrombin Time 13.2SEC (11.7-14.0) Prothromb Time International Ratio 1.1 (0.8-1.1) Activated Partial Thromboplast Time 51SEC (24-38) Heparin Anti-Xa Act, Unfractionated 0.12IU/mL (0.30-0.70) Sodium Level 137mmol/L (136-145) Potassium Level 3.8mmol/L (3.5-5.1) Chloride Level 102mmol/L (98-107) Carbon Dioxide Level 27mmol/L (21-32) Anion Gap 8 (6-14) Blood Urea Nitrogen 18mg/dL (8-26) Creatinine 1.1mg/dL (0.7-1.3) Estimated GFR (Cockcroft-Gault) 69.0 Glucose Level 116mg/dL (70-99) Calcium Level 8.5mg/dL (8.5-10.1) Magnesium Level 1.8mg/dL (1.8-2.4) Nasal Screen MRSA (PCR) Negative (Negative) Test 06/25/16 13:00 06/25/16 19:45 06/26/16 04:30 Heparin Anti-Xa Act, Unfractionated 0.42IU/mL (0.30-0.70) 0.20IU/mL (0.30-0.70) 0.37IU/mL (0.30-0.70) Total Bilirubin 0.5mg/dL (0.2-1.0) Direct Bilirubin 0.1mg/dL (0.0-0.2) Aspartate Amino Transf (AST/SGOT) 217U/L (15-37) Alanine Aminotransferase (ALT/SGPT) 59U/L (16-63) Alkaline Phosphatase 42U/L (46-116) Total Protein 7.0g/dL (6.4-8.2) Albumin 3.2g/dL (3.4-5.0) Triglycerides Level 103mg/dL (0-150) Cholesterol Level 208mg/dL (0-200) LDL Cholesterol, Calculated 139mg/dL (0-100) VLDL Cholesterol, Calculated 21mg/dL (0-40) HDL Cholesterol 48mg/dL (40-60) Cholesterol/HDL Ratio 4.3 Thyroid Stimulating Hormone (TSH) 0.917uIU/mL (0.358-3.74) White Blood Count 7.1x10^3/uL (4.0-11.0) Red Blood Count 4.93x10^6/uL (4.30-5.70) Hemoglobin 14.1g/dL (13.0-17.5) Hematocrit 42.8% (39.0-53.0) Mean Corpuscular Volume 87fL (79-100) Mean Corpuscular Hemoglobin 29pg (25-35) Mean Corpuscular Hemoglobin Concent 33g/dL (31-37) Red Cell Distribution Width 14.6% (11.5-14.5) Platelet Count 174x10^3/uL (140-400) Neutrophils (%) (Auto) 74% (31-73) Lymphocytes (%) (Auto) 15% (24-48) Monocytes (%) (Auto) 9% (0-9) Eosinophils (%) (Auto) 1% (0-3) Basophils (%) (Auto) 1% (0-3) Neutrophils # (Auto) 5.2x10^3uL (1.8-7.7) Lymphocytes # (Auto) 1.1x10^3/uL (1.0-4.8) Monocytes # (Auto) 0.7x10^3/uL (0.0-1.1) Eosinophils # (Auto) 0.1x10^3/uL (0.0-0.7) Basophils # (Auto) 0.1x10^3/uL (0.0-0.2) Sodium Level 140mmol/L (136-145) Potassium Level 3.7mmol/L (3.5-5.1) Chloride Level 105mmol/L (98-107) Carbon Dioxide Level 27mmol/L (21-32) Anion Gap 8 (6-14) Blood Urea Nitrogen 12mg/dL (8-26) Creatinine 0.9mg/dL (0.7-1.3) Estimated GFR (Cockcroft-Gault) 87.0 Glucose Level 110mg/dL (70-99) Calcium Level 8.0mg/dL (8.5-10.1) Laboratory Tests Test 06/25/16 13:00 06/25/16 19:45 06/26/16 04:30 Heparin Anti-Xa Act, Unfractionated 0.42IU/mL (0.30-0.70) 0.20IU/mL (0.30-0.70) 0.37IU/mL (0.30-0.70) Total Bilirubin 0.5mg/dL (0.2-1.0) Direct Bilirubin 0.1mg/dL (0.0-0.2) Aspartate Amino Transf (AST/SGOT) 217U/L (15-37) Alanine Aminotransferase (ALT/SGPT) 59U/L (16-63) Alkaline Phosphatase 42U/L (46-116) Total Protein 7.0g/dL (6.4-8.2) Albumin 3.2g/dL (3.4-5.0) Triglycerides Level 103mg/dL (0-150) Cholesterol Level 208mg/dL (0-200) LDL Cholesterol, Calculated 139mg/dL (0-100) VLDL Cholesterol, Calculated 21mg/dL (0-40) HDL Cholesterol 48mg/dL (40-60) Cholesterol/HDL Ratio 4.3 Thyroid Stimulating Hormone (TSH) 0.917uIU/mL (0.358-3.74) White Blood Count 7.1x10^3/uL (4.0-11.0) Red Blood Count 4.93x10^6/uL (4.30-5.70) Hemoglobin 14.1g/dL (13.0-17.5) Hematocrit 42.8% (39.0-53.0) Mean Corpuscular Volume 87fL (79-100) Mean Corpuscular Hemoglobin 29pg (25-35) Mean Corpuscular Hemoglobin Concent 33g/dL (31-37) Red Cell Distribution Width 14.6% (11.5-14.5) Platelet Count 174x10^3/uL (140-400) Neutrophils (%) (Auto) 74% (31-73) Lymphocytes (%) (Auto) 15% (24-48) Monocytes (%) (Auto) 9% (0-9) Eosinophils (%) (Auto) 1% (0-3) Basophils (%) (Auto) 1% (0-3) Neutrophils # (Auto) 5.2x10^3uL (1.8-7.7) Lymphocytes # (Auto) 1.1x10^3/uL (1.0-4.8) Monocytes # (Auto) 0.7x10^3/uL (0.0-1.1) Eosinophils # (Auto) 0.1x10^3/uL (0.0-0.7) Basophils # (Auto) 0.1x10^3/uL (0.0-0.2) Sodium Level 140mmol/L (136-145) Potassium Level 3.7mmol/L (3.5-5.1) Chloride Level 105mmol/L (98-107) Carbon Dioxide Level 27mmol/L (21-32) Anion Gap 8 (6-14) Blood Urea Nitrogen 12mg/dL (8-26) Creatinine 0.9mg/dL (0.7-1.3) Estimated GFR (Cockcroft-Gault) 87.0 Glucose Level 110mg/dL (70-99) Calcium Level 8.0mg/dL (8.5-10.1) Medications Current Medications Heparin Sodium/ Dextrose 500 ml @ 0 mls/hr CONT PRN IV SEE I/O RECORD Last administered on 06/25/16t 22:53; Start 06/25/16 at 00:00 Heparin Sodium (Porcine) 1850 unit 1,850 unit PRN Q6HRS PRN IV FOR UFH LEVEL LESS THAN 0.2 Last administered on 06/25/16 07:53; Start 06/25/16 at 00:00 Tirofiban/Sodium Chloride 250 ml @ 0 mls/hr CONT PRN IV PER PROTOCOL Last administered on 06/24/16 23:45; Start 06/24/16 at 23:45; Stop 06/26/16 at 08:32; Status DC Nitroglycerin/ Dextrose 250 ml @ 0 mls/hr CONT IV ; Start 06/25/16 at 00:00; Status UNV Sodium Chloride 1,000 ml @ 60 mls/hr [id number] IV Last administered on 06/26/16 08:43; Start 06/25/16 at 00:00 Nitroglycerin/ Dextrose (Nitroglycerin Drip) 250 ml @ 20 mls/hr CONT PRN IV SEE I/O RECORD Last administered on 06/25/16 00:28; Start 06/25/16 at 00:15; Stop 06/25/16 at 13:32; Status DC Info (Do NOT chart on this placeholder) 1 each 1X ONCE MC ; Start 06/25/16 at 02 :00; Stop 06/25/16 at 02:01; Status UNV Pneumococcal Polyvalent Vaccine (Do NOT chart on this placeholder) 1 each 1X ONCE MC ; Start 06/25/16 at 02:00; Stop 06/25/16 at 02:01; Status UNV Influenza Virus Vaccine Quadrival (Fluarix Quad [id number] Syringe) 0.5 ml ONCE ONCE VAX IM Last administered on 06/25/16 11:39; Start 06/25/16 at 09:00; Stop 06/25/16 at 09:01; Status DC Pneumococcal Polyvalent Vaccine (Pneumovax 23) 0.5 ml ONCE ONCE VAX IM Last administered on 06/25/16 11:35; Start 06/25/16 at 09:00; Stop 06/25/16 at 09:01; Status DC Ondansetron HCl (Zofran) 4 mg STK-MED ONCE .ROUTE ; Start 06/25/16 at 07:45; Stop 06/25/16 at 07:46; Status DC Ondansetron HCl (Zofran) 4 mg PRN Q6HRS PRN IV NAUSEA/VOMITING 1ST CHOICE Last administered on 06/25/16 08:03; Start 06/25/16 at 08:00 Famotidine (Pepcid) 20 mg BID PO Last administered on 06/26/16 08:41; Start 06/25/16 at 09:00 Fentanyl Citrate (Fentanyl 2ml Vial) 100 mcg STK-MED ONCE .ROUTE ; Start at 22:00; Stop 06/25/16 at 08:29; Status DC Heparin Sodium/ Sodium Chloride 2,000 unit STK-MED ONCE .ROUTE ; Start 06/24/16 at 22:00; Stop 06/25/16 at 08:29; Status DC Iodixanol (Visipaque 320) 200 ml STK-MED ONCE .ROUTE ; Start 06/24/16 at 22:00; Stop 06/25/16 at 08:29; Status DC Lidocaine HCl 20 ml STK-MED ONCE .ROUTE ; Start 06/24/16 at 22:00; Stop 06/25/16 at 08:29; Status DC Midazolam HCl (Versed) 2 mg STK-MED ONCE .ROUTE ; Start 06/24/16 at 22:00; Stop 06/25/16 at 08:29; Status DC Nitroglycerin/ Dextrose (Nitroglycerin Drip) 50 mg STK-MED ONCE IV ; Start at 22:00; Stop 06/25/16 at 08:29; Status DC Info (Anti-Coagulation Monitoring By Pharmacy) 1 each PRN DAILY PRN MC SEE COMMENTS Last administered on 06/26/16 08:35; Start 06/25/16 at 13:30 Aspirin (Ecotrin) 81 mg [id number] PO Last administered on 06/26/16 08:40; Start 06/25/16 at 14:00 Metoprolol Tartrate (Lopressor) 12.5 mg BID PO Last administered on 06/26/16 08 :40; Start 06/25/16 at 14:00 Acetaminophen (Tylenol) 500 mg PRN Q6HRS PRN PO MILD PAIN / TEMP Last administered on 06/25/16 15:15; Start 06/25/16 at 13:30 Atorvastatin Calcium (Lipitor) 40 mg QHS PO Last administered on 06/25/16 20:53 ; Start 06/25/16 at 21:00 Acetaminophen (Tylenol) 325 mg PRN Q6HRS PRN PO MILD PAIN / TEMP; Start at 15:30 Acetaminophen/ Hydrocodone Bitart (Lortab 5/325) 1 tab PRN Q6HRS PRN PO MODERATE TO SEVERE PAIN; Start 06/25/16 at 15:30 Hydralazine HCl (Apresoline) 10 mg PRN Q4HRS PRN IVP ELEVATED BP, SEE COMMENTS ; Start 06/25/16 at 15:30 Ondansetron HCl (Zofran) 4 mg PRN Q8HRS PRN IV NAUSEA/VOMITING; Start 06/25/16 at 15:30; Stop 06/26/16 at 08:32; Status DC Albuterol Sulfate (Ventolin Neb Soln) 2.5 mg PRN Q4HRS PRN NEB SHORTNESS OF BREATH; Start 06/25/16 at 15:30 Active Scripts Active Reported Niaspan (Niacin) 500 Mg Tab.er.24h 1 Tab PO DAILY Excedrin Migraine Caplet (Aspirin/Acetaminophen/Caffeine) 1 Each Tablet 1 Each PO PRN DAILY PRN Vitals/I & O Vital Sign - Last 24 Hours 06/25/16 06/25/16 06/25/16 06/25/16 09:09 10:35 11:00 12:00 Pulse 68 90 79 88 Resp 16 14 14 14 B/P 134/93 133/74 133/83 134/80 Pulse Ox 98 98 98 98 O2 Delivery Nasal Cannula Room Air Room Air Room Air O2 Flow Rate 2.0 06/25/16 06/25/16 06/25/16 06/25/16 12:00 13:08 14:00 15:16 Temp 98.1 98.1 Pulse 80 96 96 Resp 16 16 B/P 120/77 126/72 126/72 Pulse Ox 98 98 O2 Delivery Room Air Room Air Room Air 06/25/16 06/25/16 06/25/16 06/25/16 16:00 19:00 20:00 20:54 Temp 97.4 97.4 Pulse 94 69 95 Resp 16 20 B/P 128/68 123/83 130/60 Pulse Ox 98 98 O2 Delivery Room Air Room Air Room Air 06/25/16 06/26/16 06/26/16 23:00 03:00 08:40 Temp 98.2 98.7 98.2 98.7 Pulse 77 79 82 Resp 18 14 B/P 127/87 119/73 133/88 Pulse Ox 97 97 O2 Delivery Room Air Room Air Intake and Output 06/25/16 06/25/16 06/26/16 15:00 23:00 07:00 Intake Total 250 ml 1876 ml 1389 ml Output Total 850 ml 650 ml Balance 250 ml 1026 ml 739 ml AL GUERRERO MD Jun 26, 2016 09:09
--- NOTE | 2016-06-26 09:33 | PDOC ---
MURRAY ANN STEAMFITTER SUPERVISOR 06/26/16 0933: CARDIO Progress Notes Date and Time Date of Service 06/26/2016 Time of Evaluation 0910 Subjective Subjective: No Chest Pain, No shortness of breath, No Palpitations, No Dizziness Vitals Vitals Vital Signs Date Time Temp Pulse Resp B/P Pulse Ox O2 Delivery O2 Flow Rate FiO2 06/26/16 08:40 82 133/88 06/26/16 08:00 97.5 20 99 Room Air 97.5 06/25/16 09:09 2.0 Weight Weight [ ] Input and Output Intake and Output Intake and Output 06/26/16 07:00 Intake Total 3515 ml Output Total 1500 ml Balance 2015 ml Intake Oral 1500 ml IV Total 2015 ml Output Urine Total 1500 ml Laboratory Labs Laboratory Tests Test 06/25/16 13:00 06/25/16 19:45 06/26/16 04:30 Heparin Anti-Xa Act, Unfractionated 0.42IU/mL (0.30-0.70) 0.20IU/mL (0.30-0.70) 0.37IU/mL (0.30-0.70) Total Bilirubin 0.5mg/dL (0.2-1.0) Direct Bilirubin 0.1mg/dL (0.0-0.2) Aspartate Amino Transf (AST/SGOT) 217U/L (15-37) Alanine Aminotransferase (ALT/SGPT) 59U/L (16-63) Alkaline Phosphatase 42U/L (46-116) Total Protein 7.0g/dL (6.4-8.2) Albumin 3.2g/dL (3.4-5.0) Triglycerides Level 103mg/dL (0-150) Cholesterol Level 208mg/dL (0-200) LDL Cholesterol, Calculated 139mg/dL (0-100) VLDL Cholesterol, Calculated 21mg/dL (0-40) HDL Cholesterol 48mg/dL (40-60) Cholesterol/HDL Ratio 4.3 Thyroid Stimulating Hormone (TSH) 0.917uIU/mL (0.358-3.74) White Blood Count 7.1x10^3/uL (4.0-11.0) Red Blood Count 4.93x10^6/uL (4.30-5.70) Hemoglobin 14.1g/dL (13.0-17.5) Hematocrit 42.8% (39.0-53.0) Mean Corpuscular Volume 87fL (79-100) Mean Corpuscular Hemoglobin 29pg (25-35) Mean Corpuscular Hemoglobin Concent 33g/dL (31-37) Red Cell Distribution Width 14.6% (11.5-14.5) Platelet Count 174x10^3/uL (140-400) Neutrophils (%) (Auto) 74% (31-73) Lymphocytes (%) (Auto) 15% (24-48) Monocytes (%) (Auto) 9% (0-9) Eosinophils (%) (Auto) 1% (0-3) Basophils (%) (Auto) 1% (0-3) Neutrophils # (Auto) 5.2x10^3uL (1.8-7.7) Lymphocytes # (Auto) 1.1x10^3/uL (1.0-4.8) Monocytes # (Auto) 0.7x10^3/uL (0.0-1.1) Eosinophils # (Auto) 0.1x10^3/uL (0.0-0.7) Basophils # (Auto) 0.1x10^3/uL (0.0-0.2) Sodium Level 140mmol/L (136-145) Potassium Level 3.7mmol/L (3.5-5.1) Chloride Level 105mmol/L (98-107) Carbon Dioxide Level 27mmol/L (21-32) Anion Gap 8 (6-14) Blood Urea Nitrogen 12mg/dL (8-26) Creatinine 0.9mg/dL (0.7-1.3) Estimated GFR (Cockcroft-Gault) 87.0 Glucose Level 110mg/dL (70-99) Calcium Level 8.0mg/dL (8.5-10.1) Physical Exam HEENT: Neck Supple W Full Motion Chest: Symmetric LUNGS: Clear to Auscultation Heart: S1S2, RRR (no rhythm ectopies overnight. ) Abdomen: Soft N/T Extremities: No Calf Tenderness Neurology: alert, oriented, follow commands Assessment Assessment 1. STEMI: LHC noted with 3VD 2. VIDALES: due to NTG, resolved 3. Ischemic cardiomyopathy: compensated Recommendation 1. CABG per CTS tomorrow 2. Will follow post CABG 3. Heparin drip, ASA 4. Continue with secondary prevention. 5. No ACEi/ARB for now in preparation for CABG. DELILAH GUALLPA MD 06/26/16 1724: CARDIO Progress Notes Assessment Assessment Patient seen and examined. Agree with CASE ADVOCATE's assessment and plan. Patient currently chest pain-free. Plan for coronary artery bypass surgery by CT surgery team tomorrow. MURRAY ANN APRN Jun 26, 2016 09:33 DELILAH GUALLPA MD Jun 26, 2016 17:24
--- NOTE | 2016-06-26 09:38 | RAD ---
Indication preop. Protocol study. Anticipated coronary artery bypass surgery. Grayscale color Doppler and spectral imaging was performed. The examination was targeted to the carotid bifurcations. On the right there is some minimal plaquing. The color Doppler images do not suggest significant turbulence. The common carotid waveform and velocities are normal. The external carotid has a normal appearance. The internal carotid waveform and velocities are normal. The vertebral is patent and demonstrates normal directional flow. On the left there is some slight plaquing at the bifurcation. The color Doppler images do not suggest significant turbulence. The common carotid waveform and velocities are normal. The external carotid has a normal appearance. The internal carotid waveform and velocities appear normal. The vertebral is patent and demonstrates normal directional flow. IMPRESSION: No evidence of hemodynamically significant stenosis at either carotid bifurcation. Stenosis 0-50%. Note: Stenosis calculations for CT, MR and conventional angiography are based upon determination of the distal ICA diameter in accordance with the NASCET methodology. Stenosis calculations for doppler studies are derived from validated velocity criteria which are known to correlate with NASCET methodology of determining stenosis.
--- NOTE | 2016-06-26 09:46 | RAD ---
Indication anticipated coronary artery bypass surgery. Vein mapping. Grayscale and color imaging targeted to the greater and lesser saphenous veins bilaterally was performed. On the right the greater saphenous vein, at its junction with the common femoral vein measures 0.6 cm. In the upper mid and lower thigh corresponding measurements are 0.4, 0.43 and 0.38 cm. At the level of the knee the corresponding measurement is 0.36 cm. In the upper and mid calf corresponding measurements are 0.26 and 0.22 cm. At the ankle the vein measures 0.28 cm. The right lesser saphenous vein in the upper mid and lower calf measures 0.14, 0.15 and 0.16 cm respectively. On the left the greater saphenous vein measures 0.54 cm at its junction with the common femoral vein. In the upper mid and lower thigh corresponding measurements are 0.54, 0.48 and 0.34 cm. At the level of the knee the vein measures 0.31 cm. In the upper and mid calf corresponding measurements are 0.3 and 0.18. At the ankle the vein measures 0.23 cm. The left lesser saphenous vein in the upper mid and lower calf measures 0.29, 0.18 and 0.16 cm. Corresponding measurements, outlined above, are included on the technologist worksheet. IMPRESSION: Vein mapping in anticipation of coronary artery bypass surgery.
[2016-06-26 10:45] VITALS: BP 133/82
[2016-06-26 15:00] VITALS: BP 150/96
[2016-06-26 19:31] VITALS: BP 136/81
[2016-06-26] MEDS: ATORVASTATIN CALCIUM 40 MG TABLET. PO SCH (21:33)
[2016-06-26 22:30] VITALS: BP 153/96
[2016-06-26] MEDS ORDERED: ZOLPIDEM 5 MG TABLET. PO ONE (23:15)
[2016-06-27] VITALS (15 sets, daily range): BP systolic 84–145; BP diastolic 39–89
[2016-06-27] MEDS ORDERED: HEPARIN 20,000 UNIT in IV RINGERS,LACTATED 1000ML 1,000 ML IRR ONE (06:00)
[2016-06-27] MEDS ORDERED: CEFAZOLIN SODIUM 1 GM in IV NORMAL SALINE 500ML BAG 500 ML IRR ONE (06:00)
[2016-06-27] MEDS ORDERED: POTASSIUM CHLORIDE 70 MEQ, SODIUM BICARBONATE VIAL 12.5 MEQ, LIDOCAINE 2% 24 ML in IV E... IRR ONE (06:00)
[2016-06-27] MEDS: POTASSIUM CHLORIDE 15 MEQ, SODIUM BICARBONATE VIAL 12.5 MEQ in IV ELECTROLYTE-S (PH 7.4... IRR ONE (06:00)
[2016-06-27] MEDS ORDERED: ASPIRIN 300 MG SUPP.RECT ONE (06:46)
[2016-06-27] MEDS ORDERED: PAPAVERINE 60 MG/2 ML VIAL FOR OR ONLY. ONE (06:46)
[2016-06-27] MEDS ORDERED: SURGICEL HEMOSTAT 4X8 EACH. ONE (06:46)
[2016-06-27] MEDS ORDERED: MIDAZOLAM HCL 2 MG/2 ML VIAL. ONE ×4 (06:55→13:47)
[2016-06-27] MEDS ORDERED: PHENYLEPHRINE 10 MG/ML VIAL. ONE (06:55)
[2016-06-27] MEDS ORDERED: FENTANYL PF 100 MCG/2 ML VIAL. ONE (06:55)
[2016-06-27] MEDS ORDERED: AMINOCAPROIC ACID 5,000 MG/20 ML VIAL IV ONE (06:55)
[2016-06-27] MEDS ORDERED: ETOMIDATE 20 MG/10 ML VIAL. IV ONE (06:55)
[2016-06-27] MEDS ORDERED: EPHEDRINE PF IN SALINE 50 MG/5 ML DISP.SYRIN. IV ONE (06:56)
[2016-06-27] MEDS ORDERED: SUFentanil 100 MCG/2 ML AMPUL. ONE (06:56)
[2016-06-27] MEDS ORDERED: EPINEPHRINE 1 MG/ML VIAL. ONE (06:56)
[2016-06-27] MEDS ORDERED: ROCURONIUM 100 MG/10 ML VIAL. ONE ×2 (06:56→08:47)
[2016-06-27 06:59] LABS: CALCIUM 8.4 mg/dL (8.5-10.1); POTASSIUM 3.5 mmol/L (3.5-5.1)
[2016-06-27] MEDS ORDERED: HEPARIN 30,000 UNIT/30 ML VIAL. ONE ×2 (06:59→07:14)
[2016-06-27] MEDS ORDERED: PROCHLORPERAZINE 10 MG/2 ML VIAL. IV PRN (07:00)
[2016-06-27] MEDS ORDERED: LIDOCAINE 1% 1 ML SYRINGE. ID PRN (07:00)
[2016-06-27] MEDS ORDERED: IV RINGERS,LACTATED 1000ML 1,000 ML IV SCH (07:00)
[2016-06-27] MEDS ORDERED: FENTANYL PF 100 MCG/2 ML VIAL. IV PRN ×2 (07:00)
[2016-06-27] MEDS ORDERED: MORPHINE SULFATE 2 MG/ML DISP.SYRIN. IV PRN (07:00)
[2016-06-27] MEDS ORDERED: HYDROMORPHONE 2 MG/ML VIAL. IV PRN (07:00)
[2016-06-27] MEDS ORDERED: ONDANSETRON PF 4 MG/2 ML VIAL. IV PRN (07:00)
[2016-06-27] MEDS ORDERED: NITROGLYCERIN PREMIX 250 ML IV ONE (07:02)
[2016-06-27] MEDS ORDERED: CEFAZOLIN 2GM PREMIX 50 ML IV ONE ×2 (07:04→07:45)
[2016-06-27] MEDS ORDERED: EPINEPHRINE 1 MG/10 ML DISP.SYRIN. ONE (07:13)
[2016-06-27] MEDS ORDERED: 0.9 % SODIUM CHLORIDE 50 ML VIAL. IJ ONE (07:25)
[2016-06-27] MEDS ORDERED: VANCOMYCIN 10GM VIAL for OR. CEMENT ONE ×2 (07:30→07:45)
[2016-06-27 07:34] LABS: BASO # 0.1 x10^3/uL (0.0-0.2); BASO % 1 % (0-3); EOS % 2 % (0-3); HEMATOCRIT 44.2 % (39.0-53.0); HEMOGLOBIN 14.4 g/dL (13.0-17.5); LYMPH # 0.9 x10^3/uL (1.0-4.8); LYMPH % 12 % (24-48); MEAN CORPUSCULAR HEMOGLOBIN 29 pg (25-35); MEAN CORPUSCULAR HGB CONC 33 g/dL (31-37); MEAN CORPUSCULAR VOLUME 87 fL (79-100); MONO % 11 % (0-9); NEUT % 74 % (31-73); PLATELET COUNT 166 x10^3/uL (140-400); RED BLOOD COUNT 5.06 x10^6/uL (4.30-5.70); RED CELL DISTRIBUTION WIDTH 14.5 % (11.5-14.5); WHITE BLOOD COUNT 7.6 x10^3/uL (4.0-11.0)
[2016-06-27] MEDS ORDERED: MANNITOL 20% PREMIX 500 ML IV ONE (08:00)
[2016-06-27] MEDS ORDERED: DEXAMETHASONE SOD PHOS 20 MG/5 ML VIAL. ONE (09:03)
[2016-06-27] MEDS ORDERED: PROTAMINE 250 MG/25 ML VIAL IV ONE (11:22)
[2016-06-27] MEDS ORDERED: ROCURONIUM 50 MG/5 ML VIAL. ONE (11:30)
[2016-06-27] MEDS ORDERED: CEFAZOLIN PREMIX 2 GM/50 ML BAG. IV ONE (12:10)
[2016-06-27] MEDS ORDERED: INSULIN REGULAR VIAL 150 UNIT in 0.9 % SODIUM CHLORIDE 150ML 150 ML IV PRN ×2 (12:15→13:00)
[2016-06-27] MEDS ORDERED: SODIUM BICARB ADULT 8.4% 50 MEQ/50 ML DISP.SYRIN. ONE ×2 (12:31→13:04)
[2016-06-27] MEDS ORDERED: PROTAMINE 50 MG/5 ML VIAL. IV ONE ×2 (12:34→12:35)
[2016-06-27] MEDS ORDERED: CLEVIDIPINE BUTYRATE 100 ML IV PRN (13:00)
[2016-06-27] MEDS ORDERED: MEPERIDINE PF 25 MG/ML VIAL. IV PRN (13:00)
[2016-06-27] MEDS ORDERED: 0.9 % SODIUM CHLORIDE 10 ML DISP.SYRIN. IV PRN (13:00)
[2016-06-27] MEDS ORDERED: ELECTROLYTE (ICU) PROTOCOL. MC PRN (13:00)
[2016-06-27] MEDS ORDERED: DOPAMINE 400MG/250ML PREMIX 250 ML IV PRN (13:00)
[2016-06-27] MEDS ORDERED: ACETAMINOPHEN 325 MG TABLET. PO PRN (13:00)
[2016-06-27] MEDS ORDERED: BISACODYL 10 MG SUPP.RECT PR PRN (13:00)
[2016-06-27] MEDS ORDERED: AMIODARONE 900 MG in IV DEXTROSE 5% 500 ML IV PRN ×4 (13:00)
[2016-06-27] MEDS ORDERED: NITROGLYCERIN PREMIX 250 ML IV PRN (13:00)
[2016-06-27] MEDS ORDERED: AMIODARONE 150 MG in IV DEXTROSE 5% 100 ML IV PRN ×5 (13:00→15:30)
[2016-06-27] MEDS ORDERED: EPINEPHRINE VIAL 4 MG in IV NORMAL SALINE 250ML 250 ML IV PRN (13:00)
[2016-06-27] MEDS ORDERED: PHENYLEPHRINE INJ 20 MG in IV NORMAL SALINE 250ML 250 ML IV PRN (13:00)
[2016-06-27] MEDS ORDERED: ACETAMINOPHEN 650 MG SUPP.RECT. PR PRN (13:00)
[2016-06-27] MEDS ORDERED: DEXTROSE 50% 25 GM / 50ML DISP.SYRIN. IV PRN (13:00)
[2016-06-27] MEDS ORDERED: ASPIRIN 300 MG SUPP.RECT PR PRN (13:00)
[2016-06-27] MEDS ORDERED: HYDROMORPHONE 2 MG/ML VIAL. IVP PRN (13:00)
[2016-06-27] MEDS ORDERED: KCL PER PROTOCOL MC PRN (13:00)
[2016-06-27] MEDS ORDERED: DOBUTAMINE 500MG/250ML PREMIX 250 ML IV PRN (13:00)
[2016-06-27] MEDS ORDERED: MAGNESIUM SULFATE 1GM 100 ML IV PRN (13:00)
[2016-06-27] MEDS ORDERED: PROPOFOL 100 ML IV PRN (13:00)
[2016-06-27] MEDS ORDERED: ALBUMIN HUMAN 25% 200 ML IV ONE (13:04)
[2016-06-27] MEDS ORDERED: MAGNESIUM SULFATE 5 GM/10 ML VIAL. ONE (13:04)
[2016-06-27] MEDS ORDERED: LIDOCAINE 1% PF 5 ML VIAL. ONE (13:04)
[2016-06-27 13:12] LABS: HEMATOCRIT 25.6 % (39.0-53.0); HEMOGLOBIN 8.5 g/dL (13.0-17.5)
[2016-06-27 13:15] LABS: WHITE BLOOD COUNT 11.3 x10^3/uL (4.0-11.0)
[2016-06-27] MEDS ORDERED: EPINEPHRINE VIAL 4 MG in IV NORMAL SALINE 250ML 250 ML IV ONE (13:15)
[2016-06-27 13:16] LABS: INR 1.8 (0.8-1.1); PROTHROMBIN TIME PATIENT 19.6 SEC (11.7-14.0)
[2016-06-27 13:51] LABS: ART BE ISTAT -1 mmol/L (0-3); ART GLUC ISTAT 97 mg/dL (70-99); ART HCO3 ISTAT 25 mmol/L (21-28); ART HCT ISTAT 41 % (37-52); ART HGB ISTAT 13.9 g/dL (14-18); ART ION CA ISTAT 1.19 mmol/L (1.13-1.32); ART K ISTAT 3.5 mmol/L (3.5-5.0); ART NA ISTAT 140 mmol/L (135-145); ART PCO2 ISTAT 46 mmHg (35-45); ART PH ISTAT 7.34 (7.35-7.45); ART PO2 ISTAT 265 mmHg (75-100); ART SAT O2 SAT 100 % (95-99); ART TCO2 ISTAT 26 mmol/L (21-32); TOSPEC ART
[2016-06-27 13:51] LABS: FIO2 ISTAT 100; TOSPEC VEN; VEN BASE EXCESS ISTAT -6 mmol/L (0-3); VEN GLUC ISTAT 159 mg/dL (70-99); VEN HCO3 ISTAT 21 mmol/L (24-28); VEN HCT ISTAT 31 % (37-52); VEN HGB ISTAT 10.5 g/dL (14-18); VEN ION CA ISTAT 1.08 mmol/L (1.13-1.32); VEN K ISTAT 4.1 mmol/L (3.5-5.0); VEN NA ISTAT 137 mmol/L (135-145); VEN O2 ISTAT 57 mmHg (20-40); VEN PCO2 ISTAT 46 mmHg (41-51); VEN PH ISTAT 7.27 (7.32-7.42); VEN SO2 ISTAT 85 %; VEN TCO2 ISTAT 22 mmol/L (21-32)
[2016-06-27 13:51] LABS: ART BE ISTAT -4 mmol/L (0-3); ART GLUC ISTAT 129 mg/dL (70-99); ART HCO3 ISTAT 22 mmol/L (21-28); ART HCT ISTAT 39 % (37-52); ART HGB ISTAT 13.3 g/dL (14-18); ART ION CA ISTAT 1.15 mmol/L (1.13-1.32); ART K ISTAT 4.1 mmol/L (3.5-5.0); ART NA ISTAT 138 mmol/L (135-145); ART PCO2 ISTAT 41 mmHg (35-45); ART PH ISTAT 7.33 (7.35-7.45); ART PO2 ISTAT 321 mmHg (75-100); ART SAT O2 SAT 100 % (95-99); ART TCO2 ISTAT 23 mmol/L (21-32); TOSPEC ART
[2016-06-27 13:52] LABS: ART BE ISTAT 1 mmol/L (0-3); ART GLUC ISTAT 161 mg/dL (70-99); ART HCO3 ISTAT 26 mmol/L (21-28); ART HCT ISTAT 25 % (37-52); ART HGB ISTAT 8.5 g/dL (14-18); ART ION CA ISTAT 1.05 mmol/L (1.13-1.32); ART K ISTAT 3.6 mmol/L (3.5-5.0); ART NA ISTAT 140 mmol/L (135-145); ART PCO2 ISTAT 44 mmHg (35-45); ART PH ISTAT 7.38 (7.35-7.45); ART PO2 ISTAT 276 mmHg (75-100); ART SAT O2 SAT 100 % (95-99); ART TCO2 ISTAT 27 mmol/L (21-32); TOSPEC ART
[2016-06-27 13:52] LABS: ART BE ISTAT -1 mmol/L (0-3); ART GLUC ISTAT 140 mg/dL (70-99); ART HCO3 ISTAT 25 mmol/L (21-28); ART HCT ISTAT 29 % (37-52); ART HGB ISTAT 9.9 g/dL (14-18); ART ION CA ISTAT 1.07 mmol/L (1.13-1.32); ART K ISTAT 3.5 mmol/L (3.5-5.0); ART NA ISTAT 141 mmol/L (135-145); ART PCO2 ISTAT 43 mmHg (35-45); ART PH ISTAT 7.36 (7.35-7.45); ART PO2 ISTAT 125 mmHg (75-100); ART SAT O2 SAT 99 % (95-99); ART TCO2 ISTAT 26 mmol/L (21-32); TOSPEC ART
[2016-06-27 13:52] LABS: ART BE ISTAT -3 mmol/L (0-3); ART GLUC ISTAT 190 mg/dL (70-99); ART HCO3 ISTAT 23 mmol/L (21-28); ART HCT ISTAT 30 % (37-52); ART HGB ISTAT 10.2 g/dL (14-18); ART ION CA ISTAT 1.09 mmol/L (1.13-1.32); ART K ISTAT 4.8 mmol/L (3.5-5.0); ART NA ISTAT 137 mmol/L (135-145); ART PCO2 ISTAT 43 mmHg (35-45); ART PH ISTAT 7.33 (7.35-7.45); ART PO2 ISTAT 407 mmHg (75-100); ART SAT O2 SAT 100 % (95-99); ART TCO2 ISTAT 24 mmol/L (21-32); TOSPEC ART
[2016-06-27 13:52] LABS: ART BE ISTAT -4 mmol/L (0-3); ART GLUC ISTAT 205 mg/dL (70-99); ART HCO3 ISTAT 21 mmol/L (21-28); ART HCT ISTAT 28 % (37-52); ART HGB ISTAT 9.5 g/dL (14-18); ART ION CA ISTAT 1.07 mmol/L (1.13-1.32); ART K ISTAT 5.8 mmol/L (3.5-5.0); ART NA ISTAT 136 mmol/L (135-145); ART PCO2 ISTAT 38 mmHg (35-45); ART PH ISTAT 7.36 (7.35-7.45); ART PO2 ISTAT 335 mmHg (75-100); ART SAT O2 SAT 100 % (95-99); ART TCO2 ISTAT 23 mmol/L (21-32); TOSPEC ART
[2016-06-27 13:52] LABS: ART BE ISTAT -5 mmol/L (0-3); ART GLUC ISTAT 175 mg/dL (70-99); ART HCO3 ISTAT 22 mmol/L (21-28); ART HCT ISTAT 25 % (37-52); ART HGB ISTAT 8.5 g/dL (14-18); ART ION CA ISTAT 1.09 mmol/L (1.13-1.32); ART K ISTAT 4.9 mmol/L (3.5-5.0); ART NA ISTAT 136 mmol/L (135-145); ART PCO2 ISTAT 48 mmHg (35-45); ART PH ISTAT 7.27 (7.35-7.45); ART PO2 ISTAT 253 mmHg (75-100); ART SAT O2 SAT 100 % (95-99); ART TCO2 ISTAT 23 mmol/L (21-32); TOSPEC ART
--- NOTE | 2016-06-27 14:17 | RAD ---
Indication postop. Routine study. Single view of the chest was obtained. No prior plain film imaging of the chest is available. Note is made of a CT examination of the chest one day earlier. The patient is now postoperative. The extreme right chest is not included on the image. Endotracheal tube is appropriately positioned above the marylou. Nasogastric tube is in the stomach. Mediastinal and chest tubes are noted. There is volume loss in the right upper lobe consistent with partially atelectatic lobe. IMPRESSION: Volume loss, compatible with atelectasis, in the right upper lobe. Various support tubes and catheters appear appropriately positioned
--- NOTE | 2016-06-27 14:53 | PDOC ---
BRIEF OPERATIVE NOTE Date: Jun 27, 2016 Pre-Op Diagnosis ST elevation myocardial infarction Severe ischemic cardiomyopathy Hypertension Hyperlipidemia Post-Op Diagnosis ST elevation myocardial infarction Severe ischemic cardiomyopathy Hypertension Hyperlipidemia Procedure Performed CABG 3 (SVG to LAD, SVG to OM 2, SVG to distal RCA) Endoscopic left greater saphenous vein harvesting Surgeon Jess Mclean MD Lan Administrator TINA James Anesthesia Type: General Blood Loss cellsaver IV Fluid 1000 mls Urine Output 800 mls Specimens Obtained None Findings Good 2 mm LAD, OM and distal RCA targets Severely depressed left ventricular ejection fraction with hypokinetic anterior wall The left internal mammary artery was not used owing to its small size, poor flow and overall better quality especially in the context of the patient's recent STEMI Complications None Additional Remarks CPB time: 126 minutes x clamp time 100 min JESS MCLEAN MD Jun 27, 2016 14:53
[2016-06-27 14:57] LABS: HEMATOCRIT 26.6 % (39.0-53.0); HEMOGLOBIN 8.9 g/dL (13.0-17.5); RED BLOOD COUNT 3.07 x10^6/uL (4.30-5.70); RED CELL DISTRIBUTION WIDTH 14.4 % (11.5-14.5); WHITE BLOOD COUNT 9.7 x10^3/uL (4.0-11.0)
--- NOTE | 2016-06-27 14:57 | PDOC4 ---
Operative Note Operative Note Date: Jun 27, [address] elevation myocardial infarction Severe ischemic cardiomyopathy Hypertension Hyperlipidemia Postoperative diagnosis ST elevation myocardial infarction Severe ischemic cardiomyopathy Hypertension Hyperlipidemia Procedure Coronary artery bypass grafting 3 (saphenous vein graft to left anterior descending artery, saphenous vein graft to obtuse marginal 2, saphenous vein graft to distal right coronary artery) Endoscopic left greater saphenous vein harvesting Surgeon Jess Mlcean MD Business Process Consultant TINA James Anesthesia Type General Blood Loss cellsaver IV fluids 1000 mls Urine output 800 mls Specimens obtained None Findings Good 2 mm LAD, OM and distal RCA targets Severely depressed left ventricular ejection fraction with hypokinetic anterior wall The left internal mammary artery was not used owing to its small size, poor flow and overall better quality especially in the context of the patient's recent STEMI Complications None Additional Remarks CPB time: 126 minutes x clamp time 100 min Indications The patient is a 55-year-old male with no previous significant medical history, but a strong family history of ischemic heart disease who presented yesterday to [facility] with crushing chest pain. On EKG his ST segments were elevated in the anterior leads and he was emergently transferred to the catheter lab. His left heart catheterization demonstrated a very tight proximal LAD stenosis with an additional proximal to mid stenotic segment, a 80-90% proximal left circumflex stenosis and a totally occluded proximal RCA. His ejection fraction on the LV gram was 30%. The LAD was most likely the culprit lesion but there was flow distally in the ST elevation resolved. He is currently chest pain-free on a heparin and nitroglycerin drip. I was consulted to consider the patient for surgical coronary revascularization. I quoted a mortality of 2-4% owing to his severe ischemic cardiomyopathy, a 1-2% risk of renal failure, stroke, respiratory failure, myocardial infarction, 5% risk of chest infection, wound infection, re-sternotomy for hemorrhage and a 20-30% risk of postoperative arrhythmias. The patient had accepts these risks and agrees to proceed. Operation After appropriate identification, the patient was brought to the operating room and placed supine on the operating table. Anesthesia was induced and the airway was secured with an endotracheal tube. Monitoring lines were placed without difficulty. Antibiotics were delivered and the patient was preped in the usual standard surgical sterile fashion. A timeout was then performed. A median sternotomy was performed and the internal mammary artery was harvested. After evaluating the HUNTER, I decided not to use it owing to its small size, poor flow and overall better quality especially in the context of the patient's recent STEMI. Simultaneously the left greater saphenous vein was harvested endoscopically, which was of good caliber and quality. The pericardium was incised. The patient was heparinized. Cardiopulmonary bypass was established through the ascending aorta and the right atrium. The patient was cooled to 32 . Myocardial protection was achieved with antegrade blood cardioplegia. The cross-clamp was applied and diastolic arrest was achieved. Intermittent dosages of cardioplegia were given. Grafts: Saphenous vein graft to the right posterior descending artery, end to side anastomosis with 7-0 Prolene. 2 mm vessel. Saphenous vein graft to obtuse marginal coronary artery, end to side anastomosis with 7-0 Prolene. 2 mm vessel. Saphenous vein graft to left anterior descending, end to side anastomosis with 7 -0 Prolene. 2 mm vessel Three proximals were performed using a 6-0 Prolene running suture. The cross- clamp was removed. The heart was allowed to rewarm and reperfuse. The grafts were de-aired. The patient recovered normal sinus rhythm and was from cardiopulmonary bypass without pharmacologic support. Heparin was reversed with protamine. Atrial and ventricular pacing wires were placed. An angled 32 Italian chest tube was placed in the left pleural space, a 32Fr angled in the posterior pericardium and a 32 straight in the anterior pericardium. Hemostasis was achieved and confirmed. The sternotomy was closed with #7 steel wires. The incision was closed with a layer of 0 Vicryl followed by 2-0 Vicryl and then 4-0 Monocryl for the epidermis. Sterile dressings were applied. The total cardiopulmonary bypass time was 126 minutes and the cross-clamp time was 100 minutes. The instrument, sponge and needle counts were correct. The patient was then transferred to the ICU in critical condition. JESS MCLEAN MD Jun 27, 2016 14:57
--- NOTE | 2016-06-27 14:59 | EKG ---
[facility] [address] [place] [address] Test Date: 2016-06-27 Test Time: 14:46:33 Pat Name: CHAITANYA GUZMÁN Department: Room: 103 1 Gender: M Contract Law Specialist: : [id number] Requested By: VANI JOHNSON Order Number: [id number] Reading MD: Measurements Intervals [place] Rate: 95 P: 56 CO: 164 QRS: 69 QRSD: 92 T: 118 QT: 406 QTc: 514 Interpretive Statements SINUS RHYTHM QRS(T) CONTOUR ABNORMALITY CONSISTENT WITH ANTERIOR INFARCT AGE UNDETERMINED T ABNORMALITY IN LATERAL LEADS ABNORMAL ECG RI6.01 No previous ECG available for comparison
[2016-06-27 15:00] LABS: BODY TEMP ABG 96.2 DEG; CORRECTED PCO2 ABG 44 mmHg; CORRECTED PH ABG 7.29; CORRECTED PO2 ABG 169 mmHg; FIO2 ABG 80; HCO3 ABG 21 mmol/L (21-28); PCO2 ABG 47 mmHg (35-46); PH ABG 7.27 (7.35-7.45); PO2 ABG 176 mmHg (75-108); SAT O2 ABG 98 % (92-99)
[2016-06-27] MEDS ORDERED: ALBUMIN HUMAN 5% 250 ML IV ONE (15:00)
[2016-06-27 15:06] LABS: CALCIUM 6.7 mg/dL (8.5-10.1); CREATININE 1.1 mg/dL (0.7-1.3); MAGNESIUM 2.3 mg/dL (1.8-2.4)
[2016-06-27 15:07] LABS: INR 1.7 (0.8-1.1); PROTHROMBIN TIME PATIENT 18.9 SEC (11.7-14.0)
[2016-06-27 15:08] LABS: POTASSIUM 2.9 mmol/L (3.5-5.1)
[2016-06-27] MEDS ORDERED: CALCIUM CHLORIDE 1,000 MG in IV NORMAL SALINE 50ML 50 ML IV ONE (15:15)
[2016-06-27] MEDS: POTASSIUM CHLORIDE 20MEQ 50 ML IV SCH ×4 (15:23→18:05)
[2016-06-27] MEDS ORDERED: AMIODARONE 150 MG in IV DEXTROSE 5% 100 ML IV ONE (15:30)
[2016-06-27] MEDS ORDERED: CALCIUM GLUCONATE 1,000 MG in IV NORMAL SALINE 100ML 100 ML IV ONE (15:30)
[2016-06-27] MEDS ORDERED: CEFAZOLIN SODIUM 1 GM in IV NORMAL SALINE 50ML 50 ML IV SCH (16:00)
[2016-06-27] MEDS: MORPHINE SULFATE 2 MG/ML DISP.SYRIN. IV PRN ×4 (16:03→23:14)
[2016-06-27] MEDS: IV RINGERS,LACTATED 1000ML 1,000 ML IV SCH (16:11)
[2016-06-27] MEDS: ONDANSETRON PF 4 MG/2 ML VIAL. IV PRN (16:54)
[2016-06-27 17:47] LABS: FIO2 ABG 40; HCO3 ABG 23 mmol/L (21-28); PCO2 ABG 41 mmHg (35-46); PH ABG 7.37 (7.35-7.45); PO2 ABG 118 mmHg (75-108); SAT O2 ABG 98 % (92-99)
[2016-06-27] MEDS: HYDROMORPHONE 2 MG/ML VIAL. IVP PRN (18:04)
[2016-06-27] MEDS: CEFAZOLIN SODIUM 1 GM in IV NORMAL SALINE 50ML 50 ML IV SCH (18:05)
[2016-06-27 19:21] LABS: HEMATOCRIT 29.3 % (39.0-53.0); RED BLOOD COUNT 3.41 x10^6/uL (4.30-5.70); RED CELL DISTRIBUTION WIDTH 14.4 % (11.5-14.5); WHITE BLOOD COUNT 9.6 x10^3/uL (4.0-11.0)
--- NOTE | 2016-06-27 19:28 | PDOC ---
PROGRESS NOTES Chief Complaint Chief Complaint A/P 1. ST elevation [place], anterior wall. 2. 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 3. Severe cardiomyopathy, ischemic 4. Hypokalemia. Plan s/p CABG Today iv amadinone monitor electrolytes extubated, on supplemental oxygen Pain control with iv Dilaudid Monitor electrolyte ICU stay CVTS/cardiology following History of Present Illness History of Present Illness No chest pain no fever no chills seen after surgery Vitals Vitals Vital Signs Date Time Temp Pulse Resp B/P Pulse Ox O2 Delivery O2 Flow Rate FiO2 06/27/16 18:04 100 Room Air 4.0 06/27/16 18:00 12 06/27/16 16:00 98.4 98.4 Physical Exam General: Alert, Oriented X3, Cooperative, No acute distress Heart: Regular rate, Normal S1, Normal S2, No murmurs Lungs: Clear Abdomen: Normal bowel sounds, Soft, No tenderness Extremities: No edema Skin: No significant lesion Labs LABS Laboratory Tests Test 06/27/16 06:00 06/27/16 08:55 06/27/16 10:57 06/27/16 11:53 White Blood Count 7.6x10^3/uL (4.0-11.0) Red Blood Count 5.06x10^6/uL (4.30-5.70) Hemoglobin 14.4g/dL (13.0-17.5) Hematocrit 44.2% (39.0-53.0) Mean Corpuscular Volume 87fL (79-100) Mean Corpuscular Hemoglobin 29pg (25-35) Mean Corpuscular Hemoglobin Concent 33g/dL (31-37) Red Cell Distribution Width 14.5% (11.5-14.5) Platelet Count 166x10^3/uL (140-400) Neutrophils (%) (Auto) 74% (31-73) Lymphocytes (%) (Auto) 12% (24-48) Monocytes (%) (Auto) 11% (0-9) Eosinophils (%) (Auto) 2% (0-3) Basophils (%) (Auto) 1% (0-3) Neutrophils # (Auto) 5.7x10^3uL (1.8-7.7) Lymphocytes # (Auto) 0.9x10^3/uL (1.0-4.8) Monocytes # (Auto) 0.8x10^3/uL (0.0-1.1) Eosinophils # (Auto) 0.2x10^3/uL (0.0-0.7) Basophils # (Auto) 0.1x10^3/uL (0.0-0.2) Heparin Anti-Xa Act, Unfractionated < 0.10IU/mL (0.30-0.70) Sodium Level 140mmol/L (136-145) Potassium Level 3.5mmol/L (3.5-5.1) Chloride Level 106mmol/L (98-107) Carbon Dioxide Level 26mmol/L (21-32) Anion Gap 8 (6-14) Blood Urea Nitrogen 14mg/dL (8-26) Creatinine 1.0mg/dL (0.7-1.3) Estimated GFR (Cockcroft-Gault) 77.0 Glucose Level 90mg/dL (70-99) 97mg/dL (70-99) 129mg/dL (70-99) 159mg/dL (70-99) Calcium Level 8.4mg/dL (8.5-10.1) Bedside Hemoglobin (Calculated) 13.9g/dL (14-18) 13.3g/dL (14-18) Bedside Hematocrit 41% (37-52) 39% (37-52) 31% (37-52) Bedside Arterial pH 7.34 (7.35-7.45) 7.33 (7.35-7.45) Bedside Arterial pCO2 46mmHg (35-45) 41mmHg (35-45) Bedside Arterial pO2 265mmHg (75-100) 321mmHg (75-100) Bedside Arterial HCO3 25mmol/L (21-28) 22mmol/L (21-28) Bedside Arterial Total CO2 26mmol/L (21-32) 23mmol/L (21-32) Arterial Bld O2 Saturation (Measur) 100% (95-99) 100% (95-99) Bedside Arterial Blood Base Excess -1mmol/L (0-3) -4mmol/L (0-3) Bedside FiO2 100.0 100.0 100 Bedside Sodium 140mmol/L (135-145) 138mmol/L (135-145) 137mmol/L (135-145) Bedside Potassium 3.5mmol/L (3.5-5.0) 4.1mmol/L (3.5-5.0) 4.1mmol/L (3.5-5.0) Bedside Ionized Calcium (Anaid) 1.19mmol/L (1.13-1.32) 1.15mmol/L (1.13-1.32) 1.08mmol/L (1.13-1.32) Bedside Venous pH 7.27 (7.32-7.42) Bedside Venous pCO2 46mmHg (41-51) Bedside Venous pO2 57mmHg (20-40) Bedside Venous HCO3 21mmol/L (24-28) Bedside Venous Blood Total CO2 22mmol/L (21-32) Bedside Venous Blood O2 Saturation 85% Bedside Venous Blood Base Excess -6mmol/L (0-3) POC Venous Hemoglobin (Calc) 10.5g/dL (14-18) Test 06/27/16 12:22 06/27/16 12:53 06/27/16 13:06 06/27/16 13:27 Bedside Hemoglobin (Calculated) 10.2g/dL (14-18) 9.5g/dL (14-18) 8.5g/dL (14-18) Bedside Hematocrit 30% (37-52) 28% (37-52) 25% (37-52) Bedside Arterial pH 7.33 (7.35-7.45) 7.36 (7.35-7.45) 7.27 (7.35-7.45) Bedside Arterial pCO2 43mmHg (35-45) 38mmHg (35-45) 48mmHg (35-45) Bedside Arterial pO2 407mmHg (75-100) 335mmHg (75-100) 253mmHg (75-100) Bedside Arterial HCO3 23mmol/L (21-28) 21mmol/L (21-28) 22mmol/L (21-28) Bedside Arterial Total CO2 24mmol/L (21-32) 23mmol/L (21-32) 23mmol/L (21-32) Arterial Bld O2 Saturation (Measur) 100% (95-99) 100% (95-99) 100% (95-99) Bedside Arterial Blood Base Excess -3mmol/L (0-3) -4mmol/L (0-3) -5mmol/L (0-3) Bedside FiO2 80.0 80.0 80.0 Bedside Sodium 137mmol/L (135-145) 136mmol/L (135-145) 136mmol/L (135-145) Bedside Potassium 4.8mmol/L (3.5-5.0) 5.8mmol/L (3.5-5.0) 4.9mmol/L (3.5-5.0) Glucose Level 190mg/dL (70-99) 205mg/dL (70-99) 175mg/dL (70-99) Bedside Ionized Calcium (Anaid) 1.09mmol/L (1.13-1.32) 1.07mmol/L (1.13-1.32) 1.09mmol/L (1.13-1.32) White Blood Count 11.3x10^3/uL (4.0-11.0) Hemoglobin 8.5g/dL (13.0-17.5) Hematocrit 25.6% (39.0-53.0) Platelet Count 98x10^3/uL (140-400) Prothrombin Time 19.6SEC (11.7-14.0) Prothromb Time International Ratio 1.8 (0.8-1.1) Activated Partial Thromboplast Time 34SEC (24-38) Fibrinogen 267mg/dL (200-440) Test 06/27/16 13:59 06/27/16 14:38 06/27/16 14:40 06/27/16 14:51 Bedside Hemoglobin (Calculated) 8.5g/dL (14-18) 9.9g/dL (14-18) Bedside Hematocrit 25% (37-52) 29% (37-52) Bedside Arterial pH 7.38 (7.35-7.45) 7.36 (7.35-7.45) Bedside Arterial pCO2 44mmHg (35-45) 43mmHg (35-45) Bedside Arterial pO2 276mmHg (75-100) 125mmHg (75-100) Bedside Arterial HCO3 26mmol/L (21-28) 25mmol/L (21-28) Bedside Arterial Total CO2 27mmol/L (21-32) 26mmol/L (21-32) Arterial Bld O2 Saturation (Measur) 100% (95-99) 99% (95-99) Bedside Arterial Blood Base Excess 1mmol/L (0-3) -1mmol/L (0-3) Bedside FiO2 100.0 100.0 Bedside Sodium 140mmol/L (135-145) 141mmol/L (135-145) Bedside Potassium 3.6mmol/L (3.5-5.0) 3.5mmol/L (3.5-5.0) Glucose Level 161mg/dL (70-99) 140mg/dL (70-99) 122mg/dL (70-99) Bedside Ionized Calcium (Anaid) 1.05mmol/L (1.13-1.32) 1.07mmol/L (1.13-1.32) White Blood Count 9.7x10^3/uL (4.0-11.0) Red Blood Count 3.07x10^6/uL (4.30-5.70) Hemoglobin 8.9g/dL (13.0-17.5) Hematocrit 26.6% (39.0-53.0) Mean Corpuscular Volume 87fL (79-100) Mean Corpuscular Hemoglobin 29pg (25-35) Mean Corpuscular Hemoglobin Concent 34g/dL (31-37) Red Cell Distribution Width 14.4% (11.5-14.5) Platelet Count 73x10^3/uL (140-400) Prothrombin Time 18.9SEC (11.7-14.0) Prothromb Time International Ratio 1.7 (0.8-1.1) Activated Partial Thromboplast Time 38SEC (24-38) Sodium Level 146mmol/L (136-145) Potassium Level 2.9mmol/L (3.5-5.1) Chloride Level 112mmol/L (98-107) Carbon Dioxide Level 24mmol/L (21-32) Anion Gap 10 (6-14) Blood Urea Nitrogen 15mg/dL (8-26) Creatinine 1.1mg/dL (0.7-1.3) Estimated GFR (Cockcroft-Gault) 69.0 Glucose (Fingerstick) 122mg/dL (70-99) Calcium Level 6.7mg/dL (8.5-10.1) Magnesium Level 2.3mg/dL (1.8-2.4) O2 Saturation 98% (92-99) Arterial Blood pH 7.27 (7.35-7.45) Arterial Blood pH (Temp corrected) 7.29 Arterial Blood pCO2 at Patient Temp 47mmHg (35-46) Arterial Blood pCO2 (Temp correct) 44mmHg Arterial Blood pO2 at Patient Temp 176mmHg (75-108) Arterial Blood pO2 (Temp corrected) 169mmHg Arterial Blood HCO3 21mmol/L (21-28) Arterial Blood Base Excess -6mmol/L (-3-3) FiO2 80 Test 06/27/16 16:45 06/27/16 17:11 06/27/16 18:50 06/27/16 18:51 O2 Saturation 98% (92-99) Arterial Blood pH 7.37 (7.35-7.45) Arterial Blood pCO2 at Patient Temp 41mmHg (35-46) Arterial Blood pO2 at Patient Temp 118mmHg (75-108) Arterial Blood HCO3 23mmol/L (21-28) Arterial Blood Base Excess -2mmol/L (-3-3) FiO2 40 Glucose (Fingerstick) 172mg/dL (70-99) 124mg/dL (70-99) White Blood Count 9.6x10^3/uL (4.0-11.0) Red Blood Count 3.41x10^6/uL (4.30-5.70) Hemoglobin 10.0g/dL (13.0-17.5) Hematocrit 29.3% (39.0-53.0) Mean Corpuscular Volume 86fL (79-100) Mean Corpuscular Hemoglobin 29pg (25-35) Mean Corpuscular Hemoglobin Concent 34g/dL (31-37) Red Cell Distribution Width 14.4% (11.5-14.5) Platelet Count 100x10^3/uL (140-400) Assessment and Plan Assessmemt and Plan Problems Medical Problems: (1) CAD (coronary artery disease) Status: Acute Problems: Comment Review of Relevant I have reviewed the following items fco (where applicable) has been applied. Labs Laboratory Tests Test 06/25/16 19:45 2/9/17 04:30 06/26/16 10:05 06/27/16 06:00 Heparin Anti-Xa Act, Unfractionated 0.20IU/mL (0.30-0.70) 0.37IU/mL (0.30-0.70) 0.43IU/mL (0.30-0.70) < 0.10IU/mL (0.30-0.70) White Blood Count 7.1x10^3/uL (4.0-11.0) 7.6x10^3/uL (4.0-11.0) Red Blood Count 4.93x10^6/uL (4.30-5.70) 5.06x10^6/uL (4.30-5.70) Hemoglobin 14.1g/dL (13.0-17.5) 14.4g/dL (13.0-17.5) Hematocrit 42.8% (39.0-53.0) 44.2% (39.0-53.0) Mean Corpuscular Volume 87fL (79-100) 87fL (79-100) Mean Corpuscular Hemoglobin 29pg (25-35) 29pg (25-35) Mean Corpuscular Hemoglobin Concent 33g/dL (31-37) 33g/dL (31-37) Red Cell Distribution Width 14.6% (11.5-14.5) 14.5% (11.5-14.5) Platelet Count 174x10^3/uL (140-400) 166x10^3/uL (140-400) Neutrophils (%) (Auto) 74% (31-73) 74% (31-73) Lymphocytes (%) (Auto) 15% (24-48) 12% (24-48) Monocytes (%) (Auto) 9% (0-9) 11% (0-9) Eosinophils (%) (Auto) 1% (0-3) 2% (0-3) Basophils (%) (Auto) 1% (0-3) 1% (0-3) Neutrophils # (Auto) 5.2x10^3uL (1.8-7.7) 5.7x10^3uL (1.8-7.7) Lymphocytes # (Auto) 1.1x10^3/uL (1.0-4.8) 0.9x10^3/uL (1.0-4.8) Monocytes # (Auto) 0.7x10^3/uL (0.0-1.1) 0.8x10^3/uL (0.0-1.1) Eosinophils # (Auto) 0.1x10^3/uL (0.0-0.7) 0.2x10^3/uL (0.0-0.7) Basophils # (Auto) 0.1x10^3/uL (0.0-0.2) 0.1x10^3/uL (0.0-0.2) Sodium Level 140mmol/L (136-145) 140mmol/L (136-145) Potassium Level 3.7mmol/L (3.5-5.1) 3.5mmol/L (3.5-5.1) Chloride Level 105mmol/L (98-107) 106mmol/L (98-107) Carbon Dioxide Level 27mmol/L (21-32) 26mmol/L (21-32) Anion Gap 8 (6-14) 8 (6-14) Blood Urea Nitrogen 12mg/dL (8-26) 14mg/dL (8-26) Creatinine 0.9mg/dL (0.7-1.3) 1.0mg/dL (0.7-1.3) Estimated GFR (Cockcroft-Gault) 87.0 77.0 Glucose Level 110mg/dL (70-99) 90mg/dL (70-99) Calcium Level 8.0mg/dL (8.5-10.1) 8.4mg/dL (8.5-10.1) Test 06/27/16 08:55 06/27/16 10:57 06/27/16 11:53 06/27/16 12:22 Bedside Hemoglobin (Calculated) 13.9g/dL (14-18) 13.3g/dL (14-18) 10.2g/dL (14-18) Bedside Hematocrit 41% (37-52) 39% (37-52) 31% (37-52) 30% (37-52) Bedside Arterial pH 7.34 (7.35-7.45) 7.33 (7.35-7.45) 7.33 (7.35-7.45) Bedside Arterial pCO2 46mmHg (35-45) 41mmHg (35-45) 43mmHg (35-45) Bedside Arterial pO2 265mmHg (75-100) 321mmHg (75-100) 407mmHg (75-100) Bedside Arterial HCO3 25mmol/L (21-28) 22mmol/L (21-28) 23mmol/L (21-28) Bedside Arterial Total CO2 26mmol/L (21-32) 23mmol/L (21-32) 24mmol/L (21-32) Arterial Bld O2 Saturation (Measur) 100% (95-99) 100% (95-99) 100% (95-99) Bedside Arterial Blood Base Excess -1mmol/L (0-3) -4mmol/L (0-3) -3mmol/L (0-3) Bedside FiO2 100.0 100.0 100 80.0 Bedside Sodium 140mmol/L (135-145) 138mmol/L (135-145) 137mmol/L (135-145) 137mmol/L (135-145) Bedside Potassium 3.5mmol/L (3.5-5.0) 4.1mmol/L (3.5-5.0) 4.1mmol/L (3.5-5.0) 4.8mmol/L (3.5-5.0) Glucose Level 97mg/dL (70-99) 129mg/dL (70-99) 159mg/dL (70-99) 190mg/dL (70-99) Bedside Ionized Calcium (Anaid) 1.19mmol/L (1.13-1.32) 1.15mmol/L (1.13-1.32) 1.08mmol/L (1.13-1.32) 1.09mmol/L (1.13-1.32) Bedside Venous pH 7.27 (7.32-7.42) Bedside Venous pCO2 46mmHg (41-51) Bedside Venous pO2 57mmHg (20-40) Bedside Venous HCO3 21mmol/L (24-28) Bedside Venous Blood Total CO2 22mmol/L (21-32) Bedside Venous Blood O2 Saturation 85% Bedside Venous Blood Base Excess -6mmol/L (0-3) POC Venous Hemoglobin (Calc) 10.5g/dL (14-18) Test 06/27/16 12:53 06/27/16 13:06 06/27/16 13:27 06/27/16 13:59 Bedside Hemoglobin (Calculated) 9.5g/dL (14-18) 8.5g/dL (14-18) 8.5g/dL (14-18) Bedside Hematocrit 28% (37-52) 25% (37-52) 25% (37-52) Bedside Arterial pH 7.36 (7.35-7.45) 7.27 (7.35-7.45) 7.38 (7.35-7.45) Bedside Arterial pCO2 38mmHg (35-45) 48mmHg (35-45) 44mmHg (35-45) Bedside Arterial pO2 335mmHg (75-100) 253mmHg (75-100) 276mmHg (75-100) Bedside Arterial HCO3 21mmol/L (21-28) 22mmol/L (21-28) 26mmol/L (21-28) Bedside Arterial Total CO2 23mmol/L (21-32) 23mmol/L (21-32) 27mmol/L (21-32) Arterial Bld O2 Saturation (Measur) 100% (95-99) 100% (95-99) 100% (95-99) Bedside Arterial Blood Base Excess -4mmol/L (0-3) -5mmol/L (0-3) 1mmol/L (0-3) Bedside FiO2 80.0 80.0 100.0 Bedside Sodium 136mmol/L (135-145) 136mmol/L (135-145) 140mmol/L (135-145) Bedside Potassium 5.8mmol/L (3.5-5.0) 4.9mmol/L (3.5-5.0) 3.6mmol/L (3.5-5.0) Glucose Level 205mg/dL (70-99) 175mg/dL (70-99) 161mg/dL (70-99) Bedside Ionized Calcium (Anaid) 1.07mmol/L (1.13-1.32) 1.09mmol/L (1.13-1.32) 1.05mmol/L (1.13-1.32) White Blood Count 11.3x10^3/uL (4.0-11.0) Hemoglobin 8.5g/dL (13.0-17.5) Hematocrit 25.6% (39.0-53.0) Platelet Count 98x10^3/uL (140-400) Prothrombin Time 19.6SEC (11.7-14.0) Prothromb Time International Ratio 1.8 (0.8-1.1) Activated Partial Thromboplast Time 34SEC (24-38) Fibrinogen 267mg/dL (200-440) Test 06/27/16 14:38 06/27/16 14:40 06/27/16 14:51 06/27/16 16:45 Bedside Hemoglobin (Calculated) 9.9g/dL (14-18) Bedside Hematocrit 29% (37-52) Bedside Arterial pH 7.36 (7.35-7.45) Bedside Arterial pCO2 43mmHg (35-45) Bedside Arterial pO2 125mmHg (75-100) Bedside Arterial HCO3 25mmol/L (21-28) Bedside Arterial Total CO2 26mmol/L (21-32) Arterial Bld O2 Saturation (Measur) 99% (95-99) Bedside Arterial Blood Base Excess -1mmol/L (0-3) Bedside FiO2 100.0 Bedside Sodium 141mmol/L (135-145) Bedside Potassium 3.5mmol/L (3.5-5.0) Glucose Level 140mg/dL (70-99) 122mg/dL (70-99) Bedside Ionized Calcium (Anaid) 1.07mmol/L (1.13-1.32) White Blood Count 9.7x10^3/uL (4.0-11.0) Red Blood Count 3.07x10^6/uL (4.30-5.70) Hemoglobin 8.9g/dL (13.0-17.5) Hematocrit 26.6% (39.0-53.0) Mean Corpuscular Volume 87fL (79-100) Mean Corpuscular Hemoglobin 29pg (25-35) Mean Corpuscular Hemoglobin Concent 34g/dL (31-37) Red Cell Distribution Width 14.4% (11.5-14.5) Platelet Count 73x10^3/uL (140-400) Prothrombin Time 18.9SEC (11.7-14.0) Prothromb Time International Ratio 1.7 (0.8-1.1) Activated Partial Thromboplast Time 38SEC (24-38) Sodium Level 146mmol/L (136-145) Potassium Level 2.9mmol/L (3.5-5.1) Chloride Level 112mmol/L (98-107) Carbon Dioxide Level 24mmol/L (21-32) Anion Gap 10 (6-14) Blood Urea Nitrogen 15mg/dL (8-26) Creatinine 1.1mg/dL (0.7-1.3) Estimated GFR (Cockcroft-Gault) 69.0 Glucose (Fingerstick) 122mg/dL (70-99) Calcium Level 6.7mg/dL (8.5-10.1) Magnesium Level 2.3mg/dL (1.8-2.4) O2 Saturation 98% (92-99) 98% (92-99) Arterial Blood pH 7.27 (7.35-7.45) 7.37 (7.35-7.45) Arterial Blood pH (Temp corrected) 7.29 Arterial Blood pCO2 at Patient Temp 47mmHg (35-46) 41mmHg (35-46) Arterial Blood pCO2 (Temp correct) 44mmHg Arterial Blood pO2 at Patient Temp 176mmHg (75-108) 118mmHg (75-108) Arterial Blood pO2 (Temp corrected) 169mmHg Arterial Blood HCO3 21mmol/L (21-28) 23mmol/L (21-28) Arterial Blood Base Excess -6mmol/L (-3-3) -2mmol/L (-3-3) FiO2 80 40 Test 06/27/16 17:11 06/27/16 18:50 06/27/16 18:51 Glucose (Fingerstick) 172mg/dL (70-99) 124mg/dL (70-99) White Blood Count 9.6x10^3/uL (4.0-11.0) Red Blood Count 3.41x10^6/uL (4.30-5.70) Hemoglobin 10.0g/dL (13.0-17.5) Hematocrit 29.3% (39.0-53.0) Mean Corpuscular Volume 86fL (79-100) Mean Corpuscular Hemoglobin 29pg (25-35) Mean Corpuscular Hemoglobin Concent 34g/dL (31-37) Red Cell Distribution Width 14.4% (11.5-14.5) Platelet Count 100x10^3/uL (140-400) Laboratory Tests Test 06/27/16 06:00 06/27/16 08:55 06/27/16 10:57 06/27/16 11:53 White Blood Count 7.6x10^3/uL (4.0-11.0) Red Blood Count 5.06x10^6/uL (4.30-5.70) Hemoglobin 14.4g/dL (13.0-17.5) Hematocrit 44.2% (39.0-53.0) Mean Corpuscular Volume 87fL (79-100) Mean Corpuscular Hemoglobin 29pg (25-35) Mean Corpuscular Hemoglobin Concent 33g/dL (31-37) Red Cell Distribution Width 14.5% (11.5-14.5) Platelet Count 166x10^3/uL (140-400) Neutrophils (%) (Auto) 74% (31-73) Lymphocytes (%) (Auto) 12% (24-48) Monocytes (%) (Auto) 11% (0-9) Eosinophils (%) (Auto) 2% (0-3) Basophils (%) (Auto) 1% (0-3) Neutrophils # (Auto) 5.7x10^3uL (1.8-7.7) Lymphocytes # (Auto) 0.9x10^3/uL (1.0-4.8) Monocytes # (Auto) 0.8x10^3/uL (0.0-1.1) Eosinophils # (Auto) 0.2x10^3/uL (0.0-0.7) Basophils # (Auto) 0.1x10^3/uL (0.0-0.2) Heparin Anti-Xa Act, Unfractionated < 0.10IU/mL (0.30-0.70) Sodium Level 140mmol/L (136-145) Potassium Level 3.5mmol/L (3.5-5.1) Chloride Level 106mmol/L (98-107) Carbon Dioxide Level 26mmol/L (21-32) Anion Gap 8 (6-14) Blood Urea Nitrogen 14mg/dL (8-26) Creatinine 1.0mg/dL (0.7-1.3) Estimated GFR (Cockcroft-Gault) 77.0 Glucose Level 90mg/dL (70-99) 97mg/dL (70-99) 129mg/dL (70-99) 159mg/dL (70-99) Calcium Level 8.4mg/dL (8.5-10.1) Bedside Hemoglobin (Calculated) 13.9g/dL (14-18) 13.3g/dL (14-18) Bedside Hematocrit 41% (37-52) 39% (37-52) 31% (37-52) Bedside Arterial pH 7.34 (7.35-7.45) 7.33 (7.35-7.45) Bedside Arterial pCO2 46mmHg (35-45) 41mmHg (35-45) Bedside Arterial pO2 265mmHg (75-100) 321mmHg (75-100) Bedside Arterial HCO3 25mmol/L (21-28) 22mmol/L (21-28) Bedside Arterial Total CO2 26mmol/L (21-32) 23mmol/L (21-32) Arterial Bld O2 Saturation (Measur) 100% (95-99) 100% (95-99) Bedside Arterial Blood Base Excess -1mmol/L (0-3) -4mmol/L (0-3) Bedside FiO2 100.0 100.0 100 Bedside Sodium 140mmol/L (135-145) 138mmol/L (135-145) 137mmol/L (135-145) Bedside Potassium 3.5mmol/L (3.5-5.0) 4.1mmol/L (3.5-5.0) 4.1mmol/L (3.5-5.0) Bedside Ionized Calcium (Anaid) 1.19mmol/L (1.13-1.32) 1.15mmol/L (1.13-1.32) 1.08mmol/L (1.13-1.32) Bedside Venous pH 7.27 (7.32-7.42) Bedside Venous pCO2 46mmHg (41-51) Bedside Venous pO2 57mmHg (20-40) Bedside Venous HCO3 21mmol/L (24-28) Bedside Venous Blood Total CO2 22mmol/L (21-32) Bedside Venous Blood O2 Saturation 85% Bedside Venous Blood Base Excess -6mmol/L (0-3) POC Venous Hemoglobin (Calc) 10.5g/dL (14-18) Test 06/27/16 12:22 06/27/16 12:53 06/27/16 13:06 06/27/16 13:27 Bedside Hemoglobin (Calculated) 10.2g/dL (14-18) 9.5g/dL (14-18) 8.5g/dL (14-18) Bedside Hematocrit 30% (37-52) 28% (37-52) 25% (37-52) Bedside Arterial pH 7.33 (7.35-7.45) 7.36 (7.35-7.45) 7.27 (7.35-7.45) Bedside Arterial pCO2 43mmHg (35-45) 38mmHg (35-45) 48mmHg (35-45) Bedside Arterial pO2 407mmHg (75-100) 335mmHg (75-100) 253mmHg (75-100) Bedside Arterial HCO3 23mmol/L (21-28) 21mmol/L (21-28) 22mmol/L (21-28) Bedside Arterial Total CO2 24mmol/L (21-32) 23mmol/L (21-32) 23mmol/L (21-32) Arterial Bld O2 Saturation (Measur) 100% (95-99) 100% (95-99) 100% (95-99) Bedside Arterial Blood Base Excess -3mmol/L (0-3) -4mmol/L (0-3) -5mmol/L (0-3) Bedside FiO2 80.0 80.0 80.0 Bedside Sodium 137mmol/L (135-145) 136mmol/L (135-145) 136mmol/L (135-145) Bedside Potassium 4.8mmol/L (3.5-5.0) 5.8mmol/L (3.5-5.0) 4.9mmol/L (3.5-5.0) Glucose Level 190mg/dL (70-99) 205mg/dL (70-99) 175mg/dL (70-99) Bedside Ionized Calcium (Anaid) 1.09mmol/L (1.13-1.32) 1.07mmol/L (1.13-1.32) 1.09mmol/L (1.13-1.32) White Blood Count 11.3x10^3/uL (4.0-11.0) Hemoglobin 8.5g/dL (13.0-17.5) Hematocrit 25.6% (39.0-53.0) Platelet Count 98x10^3/uL (140-400) Prothrombin Time 19.6SEC (11.7-14.0) Prothromb Time International Ratio 1.8 (0.8-1.1) Activated Partial Thromboplast Time 34SEC (24-38) Fibrinogen 267mg/dL (200-440) Test 06/27/16 13:59 06/27/16 14:38 06/27/16 14:40 06/27/16 14:51 Bedside Hemoglobin (Calculated) 8.5g/dL (14-18) 9.9g/dL (14-18) Bedside Hematocrit 25% (37-52) 29% (37-52) Bedside Arterial pH 7.38 (7.35-7.45) 7.36 (7.35-7.45) Bedside Arterial pCO2 44mmHg (35-45) 43mmHg (35-45) Bedside Arterial pO2 276mmHg (75-100) 125mmHg (75-100) Bedside Arterial HCO3 26mmol/L (21-28) 25mmol/L (21-28) Bedside Arterial Total CO2 27mmol/L (21-32) 26mmol/L (21-32) Arterial Bld O2 Saturation (Measur) 100% (95-99) 99% (95-99) Bedside Arterial Blood Base Excess 1mmol/L (0-3) -1mmol/L (0-3) Bedside FiO2 100.0 100.0 Bedside Sodium 140mmol/L (135-145) 141mmol/L (135-145) Bedside Potassium 3.6mmol/L (3.5-5.0) 3.5mmol/L (3.5-5.0) Glucose Level 161mg/dL (70-99) 140mg/dL (70-99) 122mg/dL (70-99) Bedside Ionized Calcium (Anaid) 1.05mmol/L (1.13-1.32) 1.07mmol/L (1.13-1.32) White Blood Count 9.7x10^3/uL (4.0-11.0) Red Blood Count 3.07x10^6/uL (4.30-5.70) Hemoglobin 8.9g/dL (13.0-17.5) Hematocrit 26.6% (39.0-53.0) Mean Corpuscular Volume 87fL (79-100) Mean Corpuscular Hemoglobin 29pg (25-35) Mean Corpuscular Hemoglobin Concent 34g/dL (31-37) Red Cell Distribution Width 14.4% (11.5-14.5) Platelet Count 73x10^3/uL (140-400) Prothrombin Time 18.9SEC (11.7-14.0) Prothromb Time International Ratio 1.7 (0.8-1.1) Activated Partial Thromboplast Time 38SEC (24-38) Sodium Level 146mmol/L (136-145) Potassium Level 2.9mmol/L (3.5-5.1) Chloride Level 112mmol/L (98-107) Carbon Dioxide Level 24mmol/L (21-32) Anion Gap 10 (6-14) Blood Urea Nitrogen 15mg/dL (8-26) Creatinine 1.1mg/dL (0.7-1.3) Estimated GFR (Cockcroft-Gault) 69.0 Glucose (Fingerstick) 122mg/dL (70-99) Calcium Level 6.7mg/dL (8.5-10.1) Magnesium Level 2.3mg/dL (1.8-2.4) O2 Saturation 98% (92-99) Arterial Blood pH 7.27 (7.35-7.45) Arterial Blood pH (Temp corrected) 7.29 Arterial Blood pCO2 at Patient Temp 47mmHg (35-46) Arterial Blood pCO2 (Temp correct) 44mmHg Arterial Blood pO2 at Patient Temp 176mmHg (75-108) Arterial Blood pO2 (Temp corrected) 169mmHg Arterial Blood HCO3 21mmol/L (21-28) Arterial Blood Base Excess -6mmol/L (-3-3) FiO2 80 Test 06/27/16 16:45 06/27/16 17:11 06/27/16 18:50 06/27/16 18:51 O2 Saturation 98% (92-99) Arterial Blood pH 7.37 (7.35-7.45) Arterial Blood pCO2 at Patient Temp 41mmHg (35-46) Arterial Blood pO2 at Patient Temp 118mmHg (75-108) Arterial Blood HCO3 23mmol/L (21-28) Arterial Blood Base Excess -2mmol/L (-3-3) FiO2 40 Glucose (Fingerstick) 172mg/dL (70-99) 124mg/dL (70-99) White Blood Count 9.6x10^3/uL (4.0-11.0) Red Blood Count 3.41x10^6/uL (4.30-5.70) Hemoglobin 10.0g/dL (13.0-17.5) Hematocrit 29.3% (39.0-53.0) Mean Corpuscular Volume 86fL (79-100) Mean Corpuscular Hemoglobin 29pg (25-35) Mean Corpuscular Hemoglobin Concent 34g/dL (31-37) Red Cell Distribution Width 14.4% (11.5-14.5) Platelet Count 100x10^3/uL (140-400) Medications Current Medications Heparin Sodium/ Dextrose 500 ml @ 0 mls/hr CONT PRN IV SEE I/O RECORD Last administered on 06/25/16 22:53; Start 06/25/16 at 00:00; Stop 06/27/16 at 00:00; Status DC Heparin Sodium (Porcine) 1850 unit 1,850 unit PRN Q6HRS PRN IV FOR UFH LEVEL LESS THAN 0.2 Last administered on 06/25/16 07:53; Start 06/25/16 at 00:00; Stop 06/27/16 at 00:00; Status DC Tirofiban/Sodium Chloride 250 ml @ 0 mls/hr CONT PRN IV PER PROTOCOL Last administered on 06/24/16 23:45; Start 06/24/16 at 23:45; Stop 06/26/16 at 08:32; Status DC Nitroglycerin/ Dextrose 250 ml @ 0 mls/hr CONT IV ; Start 06/25/16 at 00:00; Status UNV Sodium Chloride 1,000 ml @ 60 mls/hr [id number] IV Last administered on 06/26/16 22:57; Start 06/25/16 at 00:00; Stop 06/27/16 at 17:03; Status DC Nitroglycerin/ Dextrose (Nitroglycerin Drip) 250 ml @ 20 mls/hr CONT PRN IV SEE I/O RECORD Last administered on 06/25/16 00:28; Start 06/25/16 at 00:15; Stop 06/25/16 at 13:32; Status DC Info (Do NOT chart on this placeholder) 1 each 1X ONCE MC ; Start 06/25/16 at 02 :00; Stop 06/25/16 at 02:01; Status UNV Pneumococcal Polyvalent Vaccine (Do NOT chart on this placeholder) 1 each 1X ONCE MC ; Start 06/25/16 at 02:00; Stop 06/25/16 at 02:01; Status UNV Influenza Virus Vaccine Quadrival (Fluarix Quad 2280-1064 Syringe) 0.5 ml ONCE ONCE VAX IM Last administered on 06/25/16 11:39; Start 06/25/16 at 09:00; Stop 06/25/16 at 09:01; Status DC Pneumococcal Polyvalent Vaccine (Pneumovax 23) 0.5 ml ONCE ONCE VAX IM Last administered on 06/25/16 11:35; Start 06/25/16 at 09:00; Stop 06/25/16 at 09:01; Status DC Ondansetron HCl (Zofran) 4 mg STK-MED ONCE .ROUTE ; Start 06/25/16 at 07:45; Stop 06/25/16 at 07:46; Status DC Ondansetron HCl (Zofran) 4 mg PRN Q6HRS PRN IV NAUSEA/VOMITING 1ST CHOICE Last administered on 06/25/16 08:03; Start 06/25/16 at 08:00; Stop 06/27/16 at 14:37; Status DC Famotidine (Pepcid) 20 mg BID PO Last administered on 06/26/16 21:33; Start 06/25/16 at 09:00; Stop 06/27/16 at 14:33; Status DC Fentanyl Citrate (Fentanyl 2ml Vial) 100 mcg STK-MED ONCE .ROUTE ; Start at 22:00; Stop 06/25/16 at 08:29; Status DC Heparin Sodium/ Sodium Chloride 2,000 unit STK-MED ONCE .ROUTE ; Start 06/24/16 at 22:00; Stop 06/25/16 at 08:29; Status DC Iodixanol (Visipaque 320) 200 ml STK-MED ONCE .ROUTE ; Start 06/24/16 at 22:00; Stop 06/25/16 at 08:29; Status DC Lidocaine HCl 20 ml STK-MED ONCE .ROUTE ; Start 06/24/16 at 22:00; Stop 06/25/16 at 08:29; Status DC Midazolam HCl (Versed) 2 mg STK-MED ONCE .ROUTE ; Start 06/24/16 at 22:00; Stop 06/25/16 at 08:29; Status DC Nitroglycerin/ Dextrose (Nitroglycerin Drip) 50 mg STK-MED ONCE IV ; Start at 22:00; Stop 06/25/16 at 08:29; Status DC Info (Anti-Coagulation Monitoring By Pharmacy) 1 each PRN DAILY PRN MC SEE COMMENTS Last administered on 06/26/16 08:35; Start 06/25/16 at 13:30; Stop 06/27 at 08:13; Status DC Aspirin (Ecotrin) 81 mg DAILYWBKFT PO Last administered on 06/26/16 08:40; Start 06/25/16 at 14:00; Stop 06/27/16 at 14:30; Status DC Metoprolol Tartrate (Lopressor) 12.5 mg BID PO Last administered on 06/26/16 21 :34; Start 06/25/16 at 14:00; Stop 06/27/16 at 14:36; Status DC Acetaminophen (Tylenol) 500 mg PRN Q6HRS PRN PO MILD PAIN / TEMP Last administered on 06/25/16 15:15; Start 06/25/16 at 13:30; Stop 06/27/16 at 14:29; Status DC Atorvastatin Calcium (Lipitor) 40 mg QHS PO Last administered on 06/26/16 21:33 ; Start 06/25/16 at 21:00 Acetaminophen (Tylenol) 325 mg PRN Q6HRS PRN PO MILD PAIN / TEMP; Start at 15:30; Stop 06/27/16 at 14:29; Status DC Acetaminophen/ Hydrocodone Bitart (Lortab 5/325) 1 tab PRN Q6HRS PRN PO MODERATE TO SEVERE PAIN; Start 06/25/16 at 15:30; Stop 06/27/16 at 14:34; Status DC Hydralazine HCl (Apresoline) 10 mg PRN Q4HRS PRN IVP ELEVATED BP, SEE COMMENTS ; Start 06/25/16 at 15:30 Ondansetron HCl (Zofran) 4 mg PRN Q8HRS PRN IV NAUSEA/VOMITING; Start 06/25/16 at 15:30; Stop 06/26/16 at 08:32; Status DC Albuterol Sulfate 2.5 mg 2.5 mg PRN Q4HRS PRN NEB SHORTNESS OF BREATH; Start at 15:30 Potassium Chloride 70 meq/ Sodium Bicarbonate 12.5 meq/Lidocaine HCl 24 ml/ Parenteral Electrolytes 571.5 ml @ 571.5 mls/ hr 1X PERIOP ONCE IRR ; Start at 06:00; Stop 06/27/16 at 06:59; Status DC Potassium Chloride 15 meq/ Sodium Bicarbonate 12.5 meq/Parenteral Electrolytes 520 ml @ 520 mls/hr 1X PERIOP ONCE IRR ; Start 06/27/16 at 06:00; Stop at 06:59; Status DC Heparin Sodium (Porcine) 53428 unit/Lactated Ringer's 1,020 ml @ 1,020 mls/hr 1X PERIOP ONCE IRR Last administered on 06/27/16 08:34; Start 06/27/16 at 06: 00; Stop 06/27/16 at 06:59; Status DC Cefazolin Sodium/ Sodium Chloride (Ancef/Iv Sodium Chloride 0.9% 500ml Bag) 500 ml @ 500 mls/hr 1X PERIOP ONCE IRR Last administered on 06/27/16 08:34; Start 06/27/16 at 06:00; Stop 06/27/16 at 06:59; Status DC Ondansetron HCl (Zofran) 4 mg PRN Q6HRS PRN IV Nausea; Start 06/27/16 at 07:00 ; Stop 06/27/16 at 15:00; Status DC Fentanyl Citrate (Fentanyl 2ml Vial) 25 mcg PRN Q5MIN PRN IV MILD PAIN; Start 06/27/16 at 07:00; Stop 06/27/16 at 15:00; Status DC Fentanyl Citrate (Fentanyl 2ml Vial) 50 mcg PRN Q5MIN PRN IV MODERATE PAIN; Start 06/27/16 at 07:00; Stop 06/27/16 at 15:00; Status DC Morphine Sulfate 1 mg 1 mg PRN Q10MIN PRN IV SEVERE PAIN; Start 06/27/16 at 07: 00; Stop 06/27/16 at 15:00; Status DC Lactated Ringer's (Iv Lactated Ringers) 1,000 ml @ 30 mls/hr Q24H IV Last administered on 06/27/16 07:14; Start 06/27/16 at 07:00; Stop 06/27/16 at 15:00 ; Status DC Lidocaine HCl 2 ml 1X PRN PRN ID IV START; Start 06/27/16 at 07:00; Stop at 15:00; Status DC Hydromorphone HCl (Dilaudid) 0.5 mg PRN Q10MIN PRN IV SEVERE PAIN, Second choice; Start 06/27/16 at 07:00; Stop 06/27/16 at 15:00; Status DC Prochlorperazine Edisylate (Compazine) 5 mg PACU PRN PRN IV NAUSEA; Start 06/27 at 07:00; Stop 06/27/16 at 23:00 Zolpidem Tartrate (Ambien) 5 mg 1X ONCE PO Last administered on 06/26/16 23:14 ; Start 06/26/16 at 23:15; Stop 06/26/16 at 23:16; Status DC Cellulose 1 each STK-MED ONCE .ROUTE Last administered on 06/27/16 08:34; Start 06/27/16 at 06:46; Stop 06/27/16 at 06:47; Status DC Papaverine HCl 60 mg STK-MED ONCE .ROUTE Last administered on 06/27/16 08:34; Start 06/27/16 at 06:46; Stop 06/27/16 at 06:47; Status DC Aspirin (Aspirin) 300 mg STK-MED ONCE .ROUTE Last administered on 06/27/16 13: 50; Start 06/27/16 at 06:46; Stop 06/27/16 at 06:47; Status DC Vancomycin HCl (Vanco) 10 gm 1X ONCE CEMENT Last administered on 06/27/16 08: 34; Start 06/27/16 at 07:30; Stop 06/27/16 at 07:31; Status DC Etomidate (Amidate) 20 mg STK-MED ONCE IV ; Start 06/27/16 at 06:55; Stop at 06:56; Status DC Phenylephrine HCl (Gustavo-Synephrine Inj) 10 mg STK-MED ONCE .ROUTE ; Start at 06:55; Stop 06/27/16 at 06:56; Status DC Aminocaproic Acid (Amicar) 5,000 mg STK-MED ONCE IV ; Start 06/27/16 at 06:55; Stop 06/27/16 at 06:56; Status DC Midazolam HCl (Versed) 2 mg STK-MED ONCE .ROUTE ; Start 06/27/16 at 06:55; Stop 06/27/16 at 06:56; Status DC Fentanyl Citrate (Fentanyl 2ml Vial) 100 mcg STK-MED ONCE .ROUTE ; Start at 06:55; Stop 06/27/16 at 06:56; Status DC Epinephrine HCl (Adrenalin) 1 mg STK-MED ONCE .ROUTE ; Start 06/27/16 at 06:56; Stop 06/27/16 at 06:57; Status DC Rocuronium [place] (Zemuron) 100 mg STK-MED ONCE .ROUTE ; Start 06/27/16 at 06: 56; Stop 06/27/16 at 06:57; Status DC Ephedrine Sulfate 50 mg STK-MED ONCE IV ; Start 06/27/16 at 06:56; Stop at 06:57; Status DC Sufentanil Citrate (Sufenta) 100 mcg STK-MED ONCE .ROUTE ; Start 06/27/16 at 06: 56; Stop 06/27/16 at 06:57; Status DC Heparin Sodium (Porcine) 94982 unit 30,000 unit STK-MED ONCE .ROUTE ; Start 03/03 at 06:59; Stop 06/27/16 at 07:00; Status DC Nitroglycerin/ Dextrose 250 ml @ As Directed STK-MED ONCE IV ; Start 06/27/16 at 07:02; Stop 06/27/16 at 07:03; Status DC Cefazolin Sodium/ Dextrose (Ancef 2gm Premix) 50 ml @ As Directed STK-MED ONCE IV ; Start 06/27/16 at 07:04; Stop 06/27/16 at 07:05; Status DC Epinephrine HCl 1 mg STK-MED ONCE .ROUTE ; Start 06/27/16 at 07:13; Stop at 07:14; Status DC Heparin Sodium (Porcine) 30,000 unit STK-MED ONCE .ROUTE ; Start 06/27/16 at 07: 14; Stop 06/27/16 at 07:15; Status DC Sodium Chloride (Sodium Chloride) 50 ml STK-MED ONCE IJ Last administered on t 08:34; Start 06/27/16 at 07:25; Stop 06/27/16 at 07:26; Status DC Vancomycin HCl 10 gm 10 gm 1X ONCE CEMENT ; Start 06/27/16 at 07:45; Stop 06/27 at 07:46; Status DC Cefazolin Sodium/ Dextrose 50 ml @ 100 mls/hr 1X ONCE IV Last administered on 06/27/16t 08:15; Start 06/27/16 at 07:45; Stop 06/27/16 at 08:14; Status DC Mannitol (Mannitol Iv Soln) 500 ml @ 0 mls/hr 1X ONCE IV ; Start 06/27/16 at 08 :00; Stop 06/27/16 at 08:01; Status DC Midazolam HCl (Versed) 2 mg STK-MED ONCE .ROUTE ; Start 06/27/16 at 08:36; Stop 06/27/16 at 08:37; Status DC Rocuronium [place] (Zemuron) 100 mg STK-MED ONCE .ROUTE ; Start 06/27/16 at 08: 47; Stop 06/27/16 at 08:48; Status DC Dexamethasone Sodium Phosphate (Decadron) 20 mg STK-MED ONCE .ROUTE ; Start 03/03 at 09:03; Stop 06/27/16 at 09:04; Status DC Protamine Sulfate 250 mg STK-MED ONCE IV ; Start 06/27/16 at 11:22; Stop at 11:23; Status DC Rocuronium [place] 50 mg 50 mg STK-MED ONCE .ROUTE ; Start 06/27/16 at 11:30; Stop 06/27/16 at 11:31; Status DC Insulin Human Regular/Sodium Chloride (Novolin R Vial/ Iv Normal Saline 150ml) 151.5 ml @ 7.46 mls/hr CONT PRN IV SEE I/O RECORD; Start 06/27/16 at 12:15; Stop 06/27/16 at 14:35; Status DC Midazolam HCl (Versed) 2 mg STK-MED ONCE .ROUTE ; Start 06/27/16 at 12:11; Stop 06/27/16 at 12:12; Status DC Sodium Bicarbonate 50 meq STK-MED ONCE .ROUTE ; Start 06/27/16 at 12:31; Stop at 12:32; Status DC Protamine Sulfate 50 mg STK-MED ONCE IV ; Start 06/27/16 at 12:34; Stop at 12:35; Status DC Protamine Sulfate 50 mg 50 mg STK-MED ONCE IV ; Start 06/27/16 at 12:35; Stop at 12:36; Status DC Epinephrine HCl/ Sodium Chloride (Adrenalin/Iv Sodium Chloride 0.9% 250ml) 254 ml @ 3.81 mls/hr 1X ONCE IV ; Start 06/27/16 at 13:15; Stop 06/27/16 at 14:31 ; Status DC Lidocaine HCl (Xylocaine-Mpf 1% Vial) 5 ml STK-MED ONCE .ROUTE ; Start 06/27/16 at 13:04; Stop 06/27/16 at 13:05; Status DC Magnesium Sulfate 5 gm 5 gm STK-MED ONCE .ROUTE ; Start 06/27/16 at 13:04; Stop 06/27/16 at 13:05; Status DC Albumin Human (Albuminar) 200 ml @ As Directed STK-MED ONCE IV ; Start at 13:04; Stop 06/27/16 at 13:05; Status DC Sodium Bicarbonate 50 meq STK-MED ONCE .ROUTE ; Start 06/27/16 at 13:04; Stop at 13:05; Status DC Sodium Chloride 3 ml 3 ml PRN Q12HR PRN IV AFTER MEDS AND BLOOD DRAWS; Start at 13:00 Lactated Ringer's 1,000 ml @ 30 mls/hr Q24H IV Last administered on 06/27/16t 16:11; Start 06/27/16 at 12:50 Insulin Human Regular/Sodium Chloride (Novolin R Vial/ Iv Normal Saline 150ml) 151.5 ml @ 0 mls/hr CONT PRN PRN IV SEE I/O RECORD; Start 06/27/16 at 13:00 Dextrose 25 gm 25 gm PRN Q15MIN PRN IV LOW BLOOD SUGAR; Start 06/27/16 at 13:00 Nitroglycerin/ Dextrose 250 ml @ 0 mls/hr CONT PRN PRN IV SEE I/O RECORD; Start 06/27/16 at 13:00 Dopamine HCl/ Dextrose 250 ml @ 0 mls/hr CONT PRN PRN IV SEE I/O RECORD; Start 06/27/16 at 13:00 Dobutamine HCl/ Dextrose 250 ml @ 0 mls/hr CONT PRN PRN IV SEE I/O RECORD; Start 06/27/16 at 13:00 Phenylephrine HCl 20 mg/Sodium Chloride 252 ml @ 0 mls/hr CONT PRN PRN IV HYPOTENSION; Start 06/27/16 at 13:00 Epinephrine HCl 4 mg/Sodium Chloride 254 ml @ 0 mls/hr CONT PRN PRN IV POST CV SURGERY; Start 06/27/16 at 13:00 Amiodarone HCl 150 mg/Dextrose 103 ml @ 200 mls/hr 1X PRN PRN IV FOR RUNS OF VT; Start 06/27/16 at 13:00; Stop 06/27/16 at 13:13; Status DC Amiodarone HCl 900 mg/Dextrose 518 ml @ 33.33 mls/ hr CONT PRN PRN IV RUNS OF VT; Start 06/27/16 at 13:00; Stop 06/27/16 at 13:13; Status DC Amiodarone HCl 150 mg/Dextrose 103 ml @ 200 mls/hr 1X PRN PRN IV VT Last administered on 06/27/16 15:47; Start 06/27/16 at 13:00 Amiodarone HCl/ Dextrose (Cordarone) 518 ml @ 33.33 mls/ hr CONT PRN PRN IV SEE COMMENTS Last administered on 06/27/16 15:49; Start 06/27/16 at 13:00 Info 1 ea CONT PRN PRN MC SEE COMMENTS; Start 06/27/16 at 13:00 Info 1 ea 1 ea CONT PRN PRN MC SEE COMMENTS; Start 06/27/16 at 13:00 Magnesium Sulfate/ Dextrose (Magnesium Sulfate PREMIX 1GM) 100 ml @ 100 mls/hr PRN DAILY PRN IV FOR MAG < 2.2; Start 06/27/16 at 13:00 Famotidine (Pepcid) 20 mg BID IVP ; Start 06/27/16 at 21:00 Ondansetron HCl (Zofran) 4 mg PRN Q4HRS PRN IV NAUSEA/VOMITING Last administered on 06/27/16 16:54; Start 06/27/16 at 13:00 Morphine Sulfate 2 mg PRN Q1HR PRN IV PAIN Last administered on 06/27/16 17:28 ; Start 06/27/16 at 13:00 Acetaminophen (Tylenol) 650 mg PRN Q4HRS PRN PO MILD PAIN / TEMP; Start at 13:00 Acetaminophen (Tylenol) 650 mg PRN Q4HRS PRN MS MILD PAIN / TEMP; Start at 13:00 Meperidine HCl 12.5 mg 12.5 mg PRN Q15MIN PRN IV SHIVERING; Start 06/27/16 at 13:00; Stop 06/28/16 at 13:00 Propofol (Diprivan) 100 ml @ 0 mls/hr CONT PRN PRN IV POSTOP SEDATION UNTIL EXTUBATE; Start 06/27/16 at 13:00 Senna/Docusate Sodium (Senna Plus) 1 tab BID PO ; Start 06/27/16 at 21:00 Bisacodyl (Dulcolax Supp) 10 mg PRN DAILY PRN MS NO BOWEL MOVEMENT; Start 06/27 at 13:00 Aspirin (Ecotrin) 325 mg DAILYWBKFT PO ; Start 06/28/16 at 08:00 Aspirin (Aspirin) 300 mg PRN DAILY PRN MS IF UNABLE TO TAKE PO; Start 06/27/16 at 13:00 Metoprolol Tartrate 25 mg 25 mg BID PO ; Start 06/28/16 at 09:00 Clevidipine (Cleviprex) 100 ml @ 0 mls/hr CONT PRN IV PER PROTOCOL; Start 06/27 at 13:00 Acetaminophen/ Hydrocodone Bitart (Lortab 5/325) 1 tab PRN Q4HRS PRN PO MILD PAIN; Start 06/27/16 at 13:00 Acetaminophen/ Hydrocodone Bitart 2 tab 2 tab PRN Q4HRS PRN PO MODERATE PAIN, SEVERE PAIN; Start 06/27/16 at 13:00 Cefazolin Sodium/ Sodium Chloride (Ancef/Iv Sodium Chloride 0.9% 50ml) 50 ml @ 100 mls/hr Q8H IV ; Start 06/27/16 at 16:00; Stop 06/27/16 at 16:00; Status DC Hydromorphone HCl (Dilaudid) 0.2 mg PRN Q1HR PRN IVP PAIN Last administered on 06/27/16 18:04; Start 06/27/16 at 13:00 Hydromorphone HCl (Dilaudid) 0.4 mg PRN Q1HR PRN IVP PAIN; Start 06/27/16 at 13 :00 Midazolam HCl 2 mg 2 mg STK-MED ONCE .ROUTE ; Start 06/27/16 at 13:47; Stop 03/03 at 13:48; Status DC Albumin Human 250 ml @ 62.5 mls/hr 1X ONCE IV Last administered on 06/27/16 15:28; Start 06/27/16 at 15:00; Stop 06/27/16 at 18:59; Status DC Cefazolin Sodium 1 gm/Sodium Chloride 50 ml @ 100 mls/hr Q8H IV Last administered on 06/27/16 18:05; Start 06/27/16 at 19:00; Stop 06/29/16 at 03:29 Potassium Chloride 50 ml @ 0 mls/hr Q1H IV Last administered on 06/27/16 18:05 ; Start 06/27/16 at 15:15; Stop 06/27/16 at 18:16; Status DC Calcium Chloride 1000 mg/Sodium Chloride 60 ml @ 120 mls/hr 1X ONCE IV ; Start 06/27/16 at 15:15; Stop 06/27/16 at 15:44; Status Cancel Amiodarone HCl 150 mg/Dextrose 103 ml @ 200 mls/hr 1X PRN PRN IV [place]; Start 03/03 at 15:30; Stop 06/27/16 at 15:30; Status DC Amiodarone HCl 150 mg/Dextrose 103 ml @ 200 mls/hr 1X ONCE IV Last administered on 06/27/16 15:30; Start 06/27/16 at 15:30; Stop 06/27/16 at 16:00 ; Status DC Calcium Gluconate/ Sodium Chloride (Iv Sodium Chloride 0.9% 100ml) 110 ml @ 220 mls/hr 1X ONCE IV Last administered on 06/27/16 15:49; Start 06/27/16 at 15:30; Stop 06/27/16 at 15:59; Status DC Active Scripts Active Reported Niaspan (Niacin) 500 Mg Tab.er.24h 1 Tab PO DAILY Excedrin Migraine Caplet (Aspirin/Acetaminophen/Caffeine) 1 Each Tablet 1 Each PO PRN DAILY PRN Vitals/I & O Vital Sign - Last 24 Hours 06/26/16 06/26/16 06/26/16 06/26/16 19:31 20:00 21:34 22:30 Temp 97.6 97.9 97.6 97.9 Pulse 94 91 74 Resp 16 17 B/P 136/81 136/81 153/96 Pulse Ox 96 97 O2 Delivery Room Air Room Air Room Air 06/27/16 06/27/16 06/27/16 06/27/16 04:00 06:57 14:10 14:20 Temp 98.5 98.4 96.2 98.5 98.4 96.2 Pulse 93 77 Resp 20 15 14 B/P 144/89 132/89 Pulse Ox 95 93 100 80 O2 Delivery Room Air Room Air Ventilator Ventilator 06/27/16 06/27/16 06/27/16 06/27/16 14:20 14:30 14:35 15:00 Temp 96.2 96.2 Pulse 99 99 Resp 14 B/P 103/50 84/39 87/47 Pulse Ox 80 O2 Delivery Ventilator Mechanical Ventilator 06/27/16 06/27/16 06/27/1606/27/17 15:00 15:00 15:15 15:30 Temp 96.3 96.3 Pulse 93 93 122 Resp 14 B/P 114/56 145/78 144/89 Pulse Ox 50 O2 Delivery Ventilator 06/27/16 06/27/16 06/27/16 06/27/16 15:45 15:47 16:00 16:03 Temp 98.4 98.4 Pulse 106 77 Resp 14 14 B/P 103/63 132/89 135/83 Pulse Ox 40 100 O2 Delivery Ventilator Ventilator 06/27/16 06/27/16 06/27/16 06/27/16 16:54 17:00 17:24 17:28 Pulse 100 Resp 14 B/P Pulse Ox 100 99 100 100 O2 Delivery Ventilator Ventilator Room Air Nasal Cannula O2 Flow Rate 4.0 4.0 06/27/16 06/27/16 06/27/16 18:00 18:00 18:04 Pulse 100 Resp 12 B/P 114/68 Pulse Ox 99 100 O2 Delivery Room Air Room Air O2 Flow Rate 4.0 Intake and Output 06/26/16 06/26/16 06/27/16 15:00 23:00 07:00 Intake Total 1000 ml 492 ml Output Total 700 ml 1500 ml 700 ml Balance -700 ml -500 ml -208 ml LA GUERRERO MD Jun 27, 2016 19:28
[2016-06-27 19:42] LABS: MAGNESIUM 2.3 mg/dL (1.8-2.4); POTASSIUM 5.1 mmol/L (3.5-5.1)
[2016-06-27] MEDS: HYDROCODONE/APAP 5/325MG TABLET. PO PRN ×2 (19:46→20:41)
[2016-06-27] MEDS: ATORVASTATIN CALCIUM 40 MG TABLET. PO SCH (20:38)
[2016-06-27] MEDS: SENNOSIDES/DOCUSATE 8.6/50MG TABLET. PO SCH (20:39)
[2016-06-27] MEDS: FAMOTIDINE 20 MG TABLET. PO SCH (20:39)
[2016-06-27] MEDS ORDERED: FAMOTIDINE 20 MG/2 ML VIAL IVP SCH (21:00)
[2016-06-28] VITALS (24 sets, daily range): BP systolic 79–132; BP diastolic 58–77
[2016-06-28] MEDS: HYDROCODONE/APAP 5/325MG TABLET. PO PRN ×4 (02:06→17:17)
[2016-06-28] MEDS: CEFAZOLIN SODIUM 1 GM in IV NORMAL SALINE 50ML 50 ML IV SCH ×3 (03:32→19:31)
--- NOTE | 2016-06-28 04:08 | EKG ---
[facility] [address] [place] [id number] Test Date: 2016-06-28 Test Time: 04:12:11 Pat Name: CHAITANYA GUZMÁN Department: Room: 103 1 Gender: M [employer]: MARTHA : 1960 Requested By: VANI JOHNSON Order Number: [id number] Reading MD: Measurements Intervals [place] Rate: 84 P: NM: QRS: 44 QRSD: 80 T: 64 QT: 392 QTc: 467 Interpretive Statements IRREGULAR RHYTHM, NO P-WAVE FOUND QRS(T) CONTOUR ABNORMALITY CONSIDER ANTEROSEPTAL INFARCT CONSIDER INFERIOR MYOCARDIAL DAMAGE T ABNORMALITY IN ANTERIOR LEADS ABNORMAL ECG RI6.01 No previous ECG available for comparison
[2016-06-28] MEDS ORDERED: FUROSEMIDE 40 MG/4 ML VIAL IVP SCH ×2 (07:00→19:00)
[2016-06-28 07:12] LABS: CALCIUM 7.9 mg/dL (8.5-10.1); MAGNESIUM 2.1 mg/dL (1.8-2.4); POTASSIUM 4.4 mmol/L (3.5-5.1)
[2016-06-28 07:18] LABS: BASO % 0 % (0-3); EOS % 0 % (0-3); HEMATOCRIT 29.5 % (39.0-53.0); HEMOGLOBIN 9.7 g/dL (13.0-17.5); LYMPH # 0.7 x10^3/uL (1.0-4.8); LYMPH % 7 % (24-48); MEAN CORPUSCULAR HEMOGLOBIN 29 pg (25-35); MEAN CORPUSCULAR HGB CONC 33 g/dL (31-37); MEAN CORPUSCULAR VOLUME 88 fL (79-100); MONO % 11 % (0-9); NEUT % 82 % (31-73); PLATELET COUNT 119 x10^3/uL (140-400); RED BLOOD COUNT 3.35 x10^6/uL (4.30-5.70); RED CELL DISTRIBUTION WIDTH 14.7 % (11.5-14.5); WHITE BLOOD COUNT 9.9 x10^3/uL (4.0-11.0)
[2016-06-28] MEDS: HYDROMORPHONE 2 MG/ML VIAL. IVP PRN ×5 (07:35→18:37)
--- NOTE | 2016-06-28 08:02 | PDOC ---
CARDIOLOGY PROGRESS NOTE SUBJECTIVE: No acute events overnight. OBJECTIVE: Vital SIgns: VSS, mild tachypnea I & O +587 Objective: Gen: A/O x 3. NAD CVS: RRR, PULM: Mild Rhonchi ABD: Soft, NT/ND EXT: No edema. NEURO: non-focal exam. CURRENT MEDICATIONS: asa, metoprolol. lasix. DIAGNOSTIC TESTING: labs stable. Hgb ~10 ASSESSMENT: 3VCAD s/p 3V CABG Problems: PLAN: 1. Continue current medical therapy. 2. Continue diuresis. CXR looks like mild volume overload. Will follow. ROSALVA LOAIZA MD Jun 28, 2016 08:02
[2016-06-28 08:30] LABS: INR 1.4 (0.8-1.1); PROTHROMBIN TIME PATIENT 15.9 SEC (11.7-14.0)
--- NOTE | 2016-06-28 09:46 | PDOC ---
PROGRESS NOTES Chief Complaint Chief Complaint A/P 1. ST elevation HI, anterior wall 2. 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 3. Severe cardiomyopathy, ischemic 4. Hypokalemia. Plan s/p CABG iv amadinone , change to PO low dose beta lanre mild diuresis monitor electrolytes Monitor platelets extubated, on supplemental oxygen Pain control with iv Dilaudid, prn Toradol CVTS/cardiology following incentive spirometry History of Present Illness History of Present Illness No chest pain no fever no chills seen after surgery Vitals Vitals Vital Signs Date Time Temp Pulse Resp B/P Pulse Ox O2 Delivery O2 Flow Rate FiO2 06/28/16 09:07 16 97 Nasal Cannula 4.0 06/28/16 06:00 89 06/28/16 04:00 97.6 97.6 Physical Exam General: Alert, Oriented X3, Cooperative, No acute distress Heart: Regular rate, Normal S1, Normal S2, No murmurs Lungs: Clear Abdomen: Normal bowel sounds, Soft, No tenderness Extremities: No edema Skin: No significant lesion Labs LABS Laboratory Tests Test 06/27/16 10:57 06/27/16 11:53 06/27/16 12:22 06/27/16 12:53 Bedside Hemoglobin (Calculated) 13.3g/dL (14-18) 10.2g/dL (14-18) 9.5g/dL (14-18) Bedside Hematocrit 39% (37-52) 31% (37-52) 30% (37-52) 28% (37-52) Bedside Arterial pH 7.33 (7.35-7.45) 7.33 (7.35-7.45) 7.36 (7.35-7.45) Bedside Arterial pCO2 41mmHg (35-45) 43mmHg (35-45) 38mmHg (35-45) Bedside Arterial pO2 321mmHg (75-100) 407mmHg (75-100) 335mmHg (75-100) Bedside Arterial HCO3 22mmol/L (21-28) 23mmol/L (21-28) 21mmol/L (21-28) Bedside Arterial Total CO2 23mmol/L (21-32) 24mmol/L (21-32) 23mmol/L (21-32) Arterial Bld O2 Saturation (Measur) 100% (95-99) 100% (95-99) 100% (95-99) Bedside Arterial Blood Base Excess -4mmol/L (0-3) -3mmol/L (0-3) -4mmol/L (0-3) Bedside FiO2 100.0 100 80.0 80.0 Bedside Sodium 138mmol/L (135-145) 137mmol/L (135-145) 137mmol/L (135-145) 136mmol/L (135-145) Bedside Potassium 4.1mmol/L (3.5-5.0) 4.1mmol/L (3.5-5.0) 4.8mmol/L (3.5-5.0) 5.8mmol/L (3.5-5.0) Glucose Level 129mg/dL (70-99) 159mg/dL (70-99) 190mg/dL (70-99) 205mg/dL (70-99) Bedside Ionized Calcium (Anaid) 1.15mmol/L (1.13-1.32) 1.08mmol/L (1.13-1.32) 1.09mmol/L (1.13-1.32) 1.07mmol/L (1.13-1.32) Bedside Venous pH 7.27 (7.32-7.42) Bedside Venous pCO2 46mmHg (41-51) Bedside Venous pO2 57mmHg (20-40) Bedside Venous HCO3 21mmol/L (24-28) Bedside Venous Blood Total CO2 22mmol/L (21-32) Bedside Venous Blood O2 Saturation 85% Bedside Venous Blood Base Excess -6mmol/L (0-3) POC Venous Hemoglobin (Calc) 10.5g/dL (14-18) Test 06/27/16 13:06 06/27/16 13:27 06/27/16 13:59 06/27/16 14:38 White Blood Count 11.3x10^3/uL (4.0-11.0) Hemoglobin 8.5g/dL (13.0-17.5) Hematocrit 25.6% (39.0-53.0) Platelet Count 98x10^3/uL (140-400) Prothrombin Time 19.6SEC (11.7-14.0) Prothromb Time International Ratio 1.8 (0.8-1.1) Activated Partial Thromboplast Time 34SEC (24-38) Fibrinogen 267mg/dL (200-440) Bedside Hemoglobin (Calculated) 8.5g/dL (14-18) 8.5g/dL (14-18) 9.9g/dL (14-18) Bedside Hematocrit 25% (37-52) 25% (37-52) 29% (37-52) Bedside Arterial pH 7.27 (7.35-7.45) 7.38 (7.35-7.45) 7.36 (7.35-7.45) Bedside Arterial pCO2 48mmHg (35-45) 44mmHg (35-45) 43mmHg (35-45) Bedside Arterial pO2 253mmHg (75-100) 276mmHg (75-100) 125mmHg (75-100) Bedside Arterial HCO3 22mmol/L (21-28) 26mmol/L (21-28) 25mmol/L (21-28) Bedside Arterial Total CO2 23mmol/L (21-32) 27mmol/L (21-32) 26mmol/L (21-32) Arterial Bld O2 Saturation (Measur) 100% (95-99) 100% (95-99) 99% (95-99) Bedside Arterial Blood Base Excess -5mmol/L (0-3) 1mmol/L (0-3) -1mmol/L (0-3) Bedside FiO2 80.0 100.0 100.0 Bedside Sodium 136mmol/L (135-145) 140mmol/L (135-145) 141mmol/L (135-145) Bedside Potassium 4.9mmol/L (3.5-5.0) 3.6mmol/L (3.5-5.0) 3.5mmol/L (3.5-5.0) Glucose Level 175mg/dL (70-99) 161mg/dL (70-99) 140mg/dL (70-99) Bedside Ionized Calcium (Anaid) 1.09mmol/L (1.13-1.32) 1.05mmol/L (1.13-1.32) 1.07mmol/L (1.13-1.32) Test 06/27/16 14:40 06/27/16 14:51 06/27/16 16:45 06/27/16 17:11 White Blood Count 9.7x10^3/uL (4.0-11.0) Red Blood Count 3.07x10^6/uL (4.30-5.70) Hemoglobin 8.9g/dL (13.0-17.5) Hematocrit 26.6% (39.0-53.0) Mean Corpuscular Volume 87fL (79-100) Mean Corpuscular Hemoglobin 29pg (25-35) Mean Corpuscular Hemoglobin Concent 34g/dL (31-37) Red Cell Distribution Width 14.4% (11.5-14.5) Platelet Count 73x10^3/uL (140-400) Prothrombin Time 18.9SEC (11.7-14.0) Prothromb Time International Ratio 1.7 (0.8-1.1) Activated Partial Thromboplast Time 38SEC (24-38) Sodium Level 146mmol/L (136-145) Potassium Level 2.9mmol/L (3.5-5.1) Chloride Level 112mmol/L (98-107) Carbon Dioxide Level 24mmol/L (21-32) Anion Gap 10 (6-14) Blood Urea Nitrogen 15mg/dL (8-26) Creatinine 1.1mg/dL (0.7-1.3) Estimated GFR (Cockcroft-Gault) 69.0 Glucose Level 122mg/dL (70-99) Glucose (Fingerstick) 122mg/dL (70-99) 172mg/dL (70-99) Calcium Level 6.7mg/dL (8.5-10.1) Magnesium Level 2.3mg/dL (1.8-2.4) O2 Saturation 98% (92-99) 98% (92-99) Arterial Blood pH 7.27 (7.35-7.45) 7.37 (7.35-7.45) Arterial Blood pH (Temp corrected) 7.29 Arterial Blood pCO2 at Patient Temp 47mmHg (35-46) 41mmHg (35-46) Arterial Blood pCO2 (Temp correct) 44mmHg Arterial Blood pO2 at Patient Temp 176mmHg (75-108) 118mmHg (75-108) Arterial Blood pO2 (Temp corrected) 169mmHg Arterial Blood HCO3 21mmol/L (21-28) 23mmol/L (21-28) Arterial Blood Base Excess -6mmol/L (-3-3) -2mmol/L (-3-3) FiO2 80 40 Test 06/27/16 18:50 06/27/16 18:51 06/27/16 19:50 06/27/16 20:57 Glucose (Fingerstick) 124mg/dL (70-99) 121mg/dL (70-99) 144mg/dL (70-99) White Blood Count 9.6x10^3/uL (4.0-11.0) Red Blood Count 3.41x10^6/uL (4.30-5.70) Hemoglobin 10.0g/dL (13.0-17.5) Hematocrit 29.3% (39.0-53.0) Mean Corpuscular Volume 86fL (79-100) Mean Corpuscular Hemoglobin 29pg (25-35) Mean Corpuscular Hemoglobin Concent 34g/dL (31-37) Red Cell Distribution Width 14.4% (11.5-14.5) Platelet Count 100x10^3/uL (140-400) Potassium Level 5.1mmol/L (3.5-5.1) Magnesium Level 2.3mg/dL (1.8-2.4) Test 06/27/16 22:00 06/27/16 23:02 06/28/16 00:06 06/28/16 01:06 Glucose (Fingerstick) 133mg/dL (70-99) 126mg/dL (70-99) 138mg/dL (70-99) 125mg/dL (70-99) Test 06/28/16 02:06 06/28/16 03:03 06/28/16 04:02 06/28/16 05:09 Glucose (Fingerstick) 127mg/dL (70-99) 119mg/dL (70-99) 125mg/dL (70-99) 130mg/dL (70-99) Test 06/28/16 06:00 06/28/16 07:19 06/28/16 09:02 White Blood Count 9.9x10^3/uL (4.0-11.0) Red Blood Count 3.35x10^6/uL (4.30-5.70) Hemoglobin 9.7g/dL (13.0-17.5) Hematocrit 29.5% (39.0-53.0) Mean Corpuscular Volume 88fL (79-100) Mean Corpuscular Hemoglobin 29pg (25-35) Mean Corpuscular Hemoglobin Concent 33g/dL (31-37) Red Cell Distribution Width 14.7% (11.5-14.5) Platelet Count 119x10^3/uL (140-400) Neutrophils (%) (Auto) 82% (31-73) Lymphocytes (%) (Auto) 7% (24-48) Monocytes (%) (Auto) 11% (0-9) Eosinophils (%) (Auto) 0% (0-3) Basophils (%) (Auto) 0% (0-3) Neutrophils # (Auto) 8.0x10^3uL (1.8-7.7) Lymphocytes # (Auto) 0.7x10^3/uL (1.0-4.8) Monocytes # (Auto) 1.1x10^3/uL (0.0-1.1) Eosinophils # (Auto) 0.0x10^3/uL (0.0-0.7) Basophils # (Auto) 0.0x10^3/uL (0.0-0.2) Prothrombin Time 15.9SEC (11.7-14.0) Prothromb Time International Ratio 1.4 (0.8-1.1) Sodium Level 137mmol/L (136-145) Potassium Level 4.4mmol/L (3.5-5.1) Chloride Level 105mmol/L (98-107) Carbon Dioxide Level 22mmol/L (21-32) Anion Gap 10 (6-14) Blood Urea Nitrogen 19mg/dL (8-26) Creatinine 1.0mg/dL (0.7-1.3) Estimated GFR (Cockcroft-Gault) 77.0 Glucose Level 135mg/dL (70-99) Calcium Level 7.9mg/dL (8.5-10.1) Magnesium Level 2.1mg/dL (1.8-2.4) Creatine Kinase 611U/L (39-308) Glucose (Fingerstick) 137mg/dL (70-99) 132mg/dL (70-99) Assessment and Plan Assessmemt and Plan Problems Medical Problems: (1) CAD (coronary artery disease) Status: Acute Problems: Comment Review of Relevant I have reviewed the following items fco (where applicable) has been applied. Labs Laboratory Tests Test 06/26/16 10:05 06/27/16 06:00 06/27/16 08:55 06/27/16 10:57 Heparin Anti-Xa Act, Unfractionated 0.43IU/mL (0.30-0.70) < 0.10IU/mL (0.30-0.70) White Blood Count 7.6x10^3/uL (4.0-11.0) Red Blood Count 5.06x10^6/uL (4.30-5.70) Hemoglobin 14.4g/dL (13.0-17.5) Hematocrit 44.2% (39.0-53.0) Mean Corpuscular Volume 87fL (79-100) Mean Corpuscular Hemoglobin 29pg (25-35) Mean Corpuscular Hemoglobin Concent 33g/dL (31-37) Red Cell Distribution Width 14.5% (11.5-14.5) Platelet Count 166x10^3/uL (140-400) Neutrophils (%) (Auto) 74% (31-73) Lymphocytes (%) (Auto) 12% (24-48) Monocytes (%) (Auto) 11% (0-9) Eosinophils (%) (Auto) 2% (0-3) Basophils (%) (Auto) 1% (0-3) Neutrophils # (Auto) 5.7x10^3uL (1.8-7.7) Lymphocytes # (Auto) 0.9x10^3/uL (1.0-4.8) Monocytes # (Auto) 0.8x10^3/uL (0.0-1.1) Eosinophils # (Auto) 0.2x10^3/uL (0.0-0.7) Basophils # (Auto) 0.1x10^3/uL (0.0-0.2) Sodium Level 140mmol/L (136-145) Potassium Level 3.5mmol/L (3.5-5.1) Chloride Level 106mmol/L (98-107) Carbon Dioxide Level 26mmol/L (21-32) Anion Gap 8 (6-14) Blood Urea Nitrogen 14mg/dL (8-26) Creatinine 1.0mg/dL (0.7-1.3) Estimated GFR (Cockcroft-Gault) 77.0 Glucose Level 90mg/dL (70-99) 97mg/dL (70-99) 129mg/dL (70-99) Calcium Level 8.4mg/dL (8.5-10.1) Bedside Hemoglobin (Calculated) 13.9g/dL (14-18) 13.3g/dL (14-18) Bedside Hematocrit 41% (37-52) 39% (37-52) Bedside Arterial pH 7.34 (7.35-7.45) 7.33 (7.35-7.45) Bedside Arterial pCO2 46mmHg (35-45) 41mmHg (35-45) Bedside Arterial pO2 265mmHg (75-100) 321mmHg (75-100) Bedside Arterial HCO3 25mmol/L (21-28) 22mmol/L (21-28) Bedside Arterial Total CO2 26mmol/L (21-32) 23mmol/L (21-32) Arterial Bld O2 Saturation (Measur) 100% (95-99) 100% (95-99) Bedside Arterial Blood Base Excess -1mmol/L (0-3) -4mmol/L (0-3) Bedside FiO2 100.0 100.0 Bedside Sodium 140mmol/L (135-145) 138mmol/L (135-145) Bedside Potassium 3.5mmol/L (3.5-5.0) 4.1mmol/L (3.5-5.0) Bedside Ionized Calcium (Anaid) 1.19mmol/L (1.13-1.32) 1.15mmol/L (1.13-1.32) Test 06/27/16 11:53 06/27/16 12:22 06/27/16 12:53 06/27/16 13:06 Bedside Hematocrit 31% (37-52) 30% (37-52) 28% (37-52) Bedside Venous pH 7.27 (7.32-7.42) Bedside Venous pCO2 46mmHg (41-51) Bedside Venous pO2 57mmHg (20-40) Bedside Venous HCO3 21mmol/L (24-28) Bedside Venous Blood Total CO2 22mmol/L (21-32) Bedside Venous Blood O2 Saturation 85% Bedside Venous Blood Base Excess -6mmol/L (0-3) POC Venous Hemoglobin (Calc) 10.5g/dL (14-18) Bedside FiO2 100 80.0 80.0 Bedside Sodium 137mmol/L (135-145) 137mmol/L (135-145) 136mmol/L (135-145) Bedside Potassium 4.1mmol/L (3.5-5.0) 4.8mmol/L (3.5-5.0) 5.8mmol/L (3.5-5.0) Glucose Level 159mg/dL (70-99) 190mg/dL (70-99) 205mg/dL (70-99) Bedside Ionized Calcium (Anaid) 1.08mmol/L (1.13-1.32) 1.09mmol/L (1.13-1.32) 1.07mmol/L (1.13-1.32) Bedside Hemoglobin (Calculated) 10.2g/dL (14-18) 9.5g/dL (14-18) Bedside Arterial pH 7.33 (7.35-7.45) 7.36 (7.35-7.45) Bedside Arterial pCO2 43mmHg (35-45) 38mmHg (35-45) Bedside Arterial pO2 407mmHg (75-100) 335mmHg (75-100) Bedside Arterial HCO3 23mmol/L (21-28) 21mmol/L (21-28) Bedside Arterial Total CO2 24mmol/L (21-32) 23mmol/L (21-32) Arterial Bld O2 Saturation (Measur) 100% (95-99) 100% (95-99) Bedside Arterial Blood Base Excess -3mmol/L (0-3) -4mmol/L (0-3) White Blood Count 11.3x10^3/uL (4.0-11.0) Hemoglobin 8.5g/dL (13.0-17.5) Hematocrit 25.6% (39.0-53.0) Platelet Count 98x10^3/uL (140-400) Prothrombin Time 19.6SEC (11.7-14.0) Prothromb Time International Ratio 1.8 (0.8-1.1) Activated Partial Thromboplast Time 34SEC (24-38) Fibrinogen 267mg/dL (200-440) Test 06/27/16 13:27 06/27/16 13:59 06/27/16 14:38 06/27/16 14:40 Bedside Hemoglobin (Calculated) 8.5g/dL (14-18) 8.5g/dL (14-18) 9.9g/dL (14-18) Bedside Hematocrit 25% (37-52) 25% (37-52) 29% (37-52) Bedside Arterial pH 7.27 (7.35-7.45) 7.38 (7.35-7.45) 7.36 (7.35-7.45) Bedside Arterial pCO2 48mmHg (35-45) 44mmHg (35-45) 43mmHg (35-45) Bedside Arterial pO2 253mmHg (75-100) 276mmHg (75-100) 125mmHg (75-100) Bedside Arterial HCO3 22mmol/L (21-28) 26mmol/L (21-28) 25mmol/L (21-28) Bedside Arterial Total CO2 23mmol/L (21-32) 27mmol/L (21-32) 26mmol/L (21-32) Arterial Bld O2 Saturation (Measur) 100% (95-99) 100% (95-99) 99% (95-99) Bedside Arterial Blood Base Excess -5mmol/L (0-3) 1mmol/L (0-3) -1mmol/L (0-3) Bedside FiO2 80.0 100.0 100.0 Bedside Sodium 136mmol/L (135-145) 140mmol/L (135-145) 141mmol/L (135-145) Bedside Potassium 4.9mmol/L (3.5-5.0) 3.6mmol/L (3.5-5.0) 3.5mmol/L (3.5-5.0) Glucose Level 175mg/dL (70-99) 161mg/dL (70-99) 140mg/dL (70-99) 122mg/dL (70-99) Bedside Ionized Calcium (Anaid) 1.09mmol/L (1.13-1.32) 1.05mmol/L (1.13-1.32) 1.07mmol/L (1.13-1.32) White Blood Count 9.7x10^3/uL (4.0-11.0) Red Blood Count 3.07x10^6/uL (4.30-5.70) Hemoglobin 8.9g/dL (13.0-17.5) Hematocrit 26.6% (39.0-53.0) Mean Corpuscular Volume 87fL (79-100) Mean Corpuscular Hemoglobin 29pg (25-35) Mean Corpuscular Hemoglobin Concent 34g/dL (31-37) Red Cell Distribution Width 14.4% (11.5-14.5) Platelet Count 73x10^3/uL (140-400) Prothrombin Time 18.9SEC (11.7-14.0) Prothromb Time International Ratio 1.7 (0.8-1.1) Activated Partial Thromboplast Time 38SEC (24-38) Sodium Level 146mmol/L (136-145) Potassium Level 2.9mmol/L (3.5-5.1) Chloride Level 112mmol/L (98-107) Carbon Dioxide Level 24mmol/L (21-32) Anion Gap 10 (6-14) Blood Urea Nitrogen 15mg/dL (8-26) Creatinine 1.1mg/dL (0.7-1.3) Estimated GFR (Cockcroft-Gault) 69.0 Glucose (Fingerstick) 122mg/dL (70-99) Calcium Level 6.7mg/dL (8.5-10.1) Magnesium Level 2.3mg/dL (1.8-2.4) Test 06/27/16 14:51 06/27/16 16:45 06/27/16 17:11 06/27/16 18:50 O2 Saturation 98% (92-99) 98% (92-99) Arterial Blood pH 7.27 (7.35-7.45) 7.37 (7.35-7.45) Arterial Blood pH (Temp corrected) 7.29 Arterial Blood pCO2 at Patient Temp 47mmHg (35-46) 41mmHg (35-46) Arterial Blood pCO2 (Temp correct) 44mmHg Arterial Blood pO2 at Patient Temp 176mmHg (75-108) 118mmHg (75-108) Arterial Blood pO2 (Temp corrected) 169mmHg Arterial Blood HCO3 21mmol/L (21-28) 23mmol/L (21-28) Arterial Blood Base Excess -6mmol/L (-3-3) -2mmol/L (-3-3) FiO2 80 40 Glucose (Fingerstick) 172mg/dL (70-99) 124mg/dL (70-99) Test 06/27/16 18:51 06/27/16 19:50 06/27/16 20:57 06/27/16 22:00 White Blood Count 9.6x10^3/uL (4.0-11.0) Red Blood Count 3.41x10^6/uL (4.30-5.70) Hemoglobin 10.0g/dL (13.0-17.5) Hematocrit 29.3% (39.0-53.0) Mean Corpuscular Volume 86fL (79-100) Mean Corpuscular Hemoglobin 29pg (25-35) Mean Corpuscular Hemoglobin Concent 34g/dL (31-37) Red Cell Distribution Width 14.4% (11.5-14.5) Platelet Count 100x10^3/uL (140-400) Potassium Level 5.1mmol/L (3.5-5.1) Magnesium Level 2.3mg/dL (1.8-2.4) Glucose (Fingerstick) 121mg/dL (70-99) 144mg/dL (70-99) 133mg/dL (70-99) Test 06/27/16 23:02 06/28/16 00:06 06/28/16 01:06 06/28/16 02:06 Glucose (Fingerstick) 126mg/dL (70-99) 138mg/dL (70-99) 125mg/dL (70-99) 127mg/dL (70-99) Test 06/28/16 03:03 06/28/16 04:02 06/28/16 05:09 06/28/16 06:00 Glucose (Fingerstick) 119mg/dL (70-99) 125mg/dL (70-99) 130mg/dL (70-99) White Blood Count 9.9x10^3/uL (4.0-11.0) Red Blood Count 3.35x10^6/uL (4.30-5.70) Hemoglobin 9.7g/dL (13.0-17.5) Hematocrit 29.5% (39.0-53.0) Mean Corpuscular Volume 88fL (79-100) Mean Corpuscular Hemoglobin 29pg (25-35) Mean Corpuscular Hemoglobin Concent 33g/dL (31-37) Red Cell Distribution Width 14.7% (11.5-14.5) Platelet Count 119x10^3/uL (140-400) Neutrophils (%) (Auto) 82% (31-73) Lymphocytes (%) (Auto) 7% (24-48) Monocytes (%) (Auto) 11% (0-9) Eosinophils (%) (Auto) 0% (0-3) Basophils (%) (Auto) 0% (0-3) Neutrophils # (Auto) 8.0x10^3uL (1.8-7.7) Lymphocytes # (Auto) 0.7x10^3/uL (1.0-4.8) Monocytes # (Auto) 1.1x10^3/uL (0.0-1.1) Eosinophils # (Auto) 0.0x10^3/uL (0.0-0.7) Basophils # (Auto) 0.0x10^3/uL (0.0-0.2) Prothrombin Time 15.9SEC (11.7-14.0) Prothromb Time International Ratio 1.4 (0.8-1.1) Sodium Level 137mmol/L (136-145) Potassium Level 4.4mmol/L (3.5-5.1) Chloride Level 105mmol/L (98-107) Carbon Dioxide Level 22mmol/L (21-32) Anion Gap 10 (6-14) Blood Urea Nitrogen 19mg/dL (8-26) Creatinine 1.0mg/dL (0.7-1.3) Estimated GFR (Cockcroft-Gault) 77.0 Glucose Level 135mg/dL (70-99) Calcium Level 7.9mg/dL (8.5-10.1) Magnesium Level 2.1mg/dL (1.8-2.4) Creatine Kinase 611U/L (39-308) Test 06/28/16 07:19 06/28/16 09:02 Glucose (Fingerstick) 137mg/dL (70-99) 132mg/dL (70-99) Laboratory Tests Test 06/27/16 10:57 06/27/16 11:53 06/27/16 12:22 06/27/16 12:53 Bedside Hemoglobin (Calculated) 13.3g/dL (14-18) 10.2g/dL (14-18) 9.5g/dL (14-18) Bedside Hematocrit 39% (37-52) 31% (37-52) 30% (37-52) 28% (37-52) Bedside Arterial pH 7.33 (7.35-7.45) 7.33 (7.35-7.45) 7.36 (7.35-7.45) Bedside Arterial pCO2 41mmHg (35-45) 43mmHg (35-45) 38mmHg (35-45) Bedside Arterial pO2 321mmHg (75-100) 407mmHg (75-100) 335mmHg (75-100) Bedside Arterial HCO3 22mmol/L (21-28) 23mmol/L (21-28) 21mmol/L (21-28) Bedside Arterial Total CO2 23mmol/L (21-32) 24mmol/L (21-32) 23mmol/L (21-32) Arterial Bld O2 Saturation (Measur) 100% (95-99) 100% (95-99) 100% (95-99) Bedside Arterial Blood Base Excess -4mmol/L (0-3) -3mmol/L (0-3) -4mmol/L (0-3) Bedside FiO2 100.0 100 80.0 80.0 Bedside Sodium 138mmol/L (135-145) 137mmol/L (135-145) 137mmol/L (135-145) 136mmol/L (135-145) Bedside Potassium 4.1mmol/L (3.5-5.0) 4.1mmol/L (3.5-5.0) 4.8mmol/L (3.5-5.0) 5.8mmol/L (3.5-5.0) Glucose Level 129mg/dL (70-99) 159mg/dL (70-99) 190mg/dL (70-99) 205mg/dL (70-99) Bedside Ionized Calcium (Anaid) 1.15mmol/L (1.13-1.32) 1.08mmol/L (1.13-1.32) 1.09mmol/L (1.13-1.32) 1.07mmol/L (1.13-1.32) Bedside Venous pH 7.27 (7.32-7.42) Bedside Venous pCO2 46mmHg (41-51) Bedside Venous pO2 57mmHg (20-40) Bedside Venous HCO3 21mmol/L (24-28) Bedside Venous Blood Total CO2 22mmol/L (21-32) Bedside Venous Blood O2 Saturation 85% Bedside Venous Blood Base Excess -6mmol/L (0-3) POC Venous Hemoglobin (Calc) 10.5g/dL (14-18) Test 06/27/16 13:06 06/27/16 13:27 06/27/16 13:59 06/27/16 14:38 White Blood Count 11.3x10^3/uL (4.0-11.0) Hemoglobin 8.5g/dL (13.0-17.5) Hematocrit 25.6% (39.0-53.0) Platelet Count 98x10^3/uL (140-400) Prothrombin Time 19.6SEC (11.7-14.0) Prothromb Time International Ratio 1.8 (0.8-1.1) Activated Partial Thromboplast Time 34SEC (24-38) Fibrinogen 267mg/dL (200-440) Bedside Hemoglobin (Calculated) 8.5g/dL (14-18) 8.5g/dL (14-18) 9.9g/dL (14-18) Bedside Hematocrit 25% (37-52) 25% (37-52) 29% (37-52) Bedside Arterial pH 7.27 (7.35-7.45) 7.38 (7.35-7.45) 7.36 (7.35-7.45) Bedside Arterial pCO2 48mmHg (35-45) 44mmHg (35-45) 43mmHg (35-45) Bedside Arterial pO2 253mmHg (75-100) 276mmHg (75-100) 125mmHg (75-100) Bedside Arterial HCO3 22mmol/L (21-28) 26mmol/L (21-28) 25mmol/L (21-28) Bedside Arterial Total CO2 23mmol/L (21-32) 27mmol/L (21-32) 26mmol/L (21-32) Arterial Bld O2 Saturation (Measur) 100% (95-99) 100% (95-99) 99% (95-99) Bedside Arterial Blood Base Excess -5mmol/L (0-3) 1mmol/L (0-3) -1mmol/L (0-3) Bedside FiO2 80.0 100.0 100.0 Bedside Sodium 136mmol/L (135-145) 140mmol/L (135-145) 141mmol/L (135-145) Bedside Potassium 4.9mmol/L (3.5-5.0) 3.6mmol/L (3.5-5.0) 3.5mmol/L (3.5-5.0) Glucose Level 175mg/dL (70-99) 161mg/dL (70-99) 140mg/dL (70-99) Bedside Ionized Calcium (Anaid) 1.09mmol/L (1.13-1.32) 1.05mmol/L (1.13-1.32) 1.07mmol/L (1.13-1.32) Test 06/27/16 14:40 06/27/16 14:51 06/27/16 16:45 06/27/16 17:11 White Blood Count 9.7x10^3/uL (4.0-11.0) Red Blood Count 3.07x10^6/uL (4.30-5.70) Hemoglobin 8.9g/dL (13.0-17.5) Hematocrit 26.6% (39.0-53.0) Mean Corpuscular Volume 87fL (79-100) Mean Corpuscular Hemoglobin 29pg (25-35) Mean Corpuscular Hemoglobin Concent 34g/dL (31-37) Red Cell Distribution Width 14.4% (11.5-14.5) Platelet Count 73x10^3/uL (140-400) Prothrombin Time 18.9SEC (11.7-14.0) Prothromb Time International Ratio 1.7 (0.8-1.1) Activated Partial Thromboplast Time 38SEC (24-38) Sodium Level 146mmol/L (136-145) Potassium Level 2.9mmol/L (3.5-5.1) Chloride Level 112mmol/L (98-107) Carbon Dioxide Level 24mmol/L (21-32) Anion Gap 10 (6-14) Blood Urea Nitrogen 15mg/dL (8-26) Creatinine 1.1mg/dL (0.7-1.3) Estimated GFR (Cockcroft-Gault) 69.0 Glucose Level 122mg/dL (70-99) Glucose (Fingerstick) 122mg/dL (70-99) 172mg/dL (70-99) Calcium Level 6.7mg/dL (8.5-10.1) Magnesium Level 2.3mg/dL (1.8-2.4) O2 Saturation 98% (92-99) 98% (92-99) Arterial Blood pH 7.27 (7.35-7.45) 7.37 (7.35-7.45) Arterial Blood pH (Temp corrected) 7.29 Arterial Blood pCO2 at Patient Temp 47mmHg (35-46) 41mmHg (35-46) Arterial Blood pCO2 (Temp correct) 44mmHg Arterial Blood pO2 at Patient Temp 176mmHg (75-108) 118mmHg (75-108) Arterial Blood pO2 (Temp corrected) 169mmHg Arterial Blood HCO3 21mmol/L (21-28) 23mmol/L (21-28) Arterial Blood Base Excess -6mmol/L (-3-3) -2mmol/L (-3-3) FiO2 80 40 Test 06/27/16 18:50 06/27/16 18:51 06/27/16 19:50 06/27/16 20:57 Glucose (Fingerstick) 124mg/dL (70-99) 121mg/dL (70-99) 144mg/dL (70-99) White Blood Count 9.6x10^3/uL (4.0-11.0) Red Blood Count 3.41x10^6/uL (4.30-5.70) Hemoglobin 10.0g/dL (13.0-17.5) Hematocrit 29.3% (39.0-53.0) Mean Corpuscular Volume 86fL (79-100) Mean Corpuscular Hemoglobin 29pg (25-35) Mean Corpuscular Hemoglobin Concent 34g/dL (31-37) Red Cell Distribution Width 14.4% (11.5-14.5) Platelet Count 100x10^3/uL (140-400) Potassium Level 5.1mmol/L (3.5-5.1) Magnesium Level 2.3mg/dL (1.8-2.4) Test 06/27/16 22:00 06/27/16 23:02 06/28/16 00:06 06/28/16 01:06 Glucose (Fingerstick) 133mg/dL (70-99) 126mg/dL (70-99) 138mg/dL (70-99) 125mg/dL (70-99) Test 06/28/16 02:06 06/28/16 03:03 06/28/16 04:02 06/28/16 05:09 Glucose (Fingerstick) 127mg/dL (70-99) 119mg/dL (70-99) 125mg/dL (70-99) 130mg/dL (70-99) Test 06/28/16 06:00 06/28/16 07:19 06/28/16 09:02 White Blood Count 9.9x10^3/uL (4.0-11.0) Red Blood Count 3.35x10^6/uL (4.30-5.70) Hemoglobin 9.7g/dL (13.0-17.5) Hematocrit 29.5% (39.0-53.0) Mean Corpuscular Volume 88fL (79-100) Mean Corpuscular Hemoglobin 29pg (25-35) Mean Corpuscular Hemoglobin Concent 33g/dL (31-37) Red Cell Distribution Width 14.7% (11.5-14.5) Platelet Count 119x10^3/uL (140-400) Neutrophils (%) (Auto) 82% (31-73) Lymphocytes (%) (Auto) 7% (24-48) Monocytes (%) (Auto) 11% (0-9) Eosinophils (%) (Auto) 0% (0-3) Basophils (%) (Auto) 0% (0-3) Neutrophils # (Auto) 8.0x10^3uL (1.8-7.7) Lymphocytes # (Auto) 0.7x10^3/uL (1.0-4.8) Monocytes # (Auto) 1.1x10^3/uL (0.0-1.1) Eosinophils # (Auto) 0.0x10^3/uL (0.0-0.7) Basophils # (Auto) 0.0x10^3/uL (0.0-0.2) Prothrombin Time 15.9SEC (11.7-14.0) Prothromb Time International Ratio 1.4 (0.8-1.1) Sodium Level 137mmol/L (136-145) Potassium Level 4.4mmol/L (3.5-5.1) Chloride Level 105mmol/L (98-107) Carbon Dioxide Level 22mmol/L (21-32) Anion Gap 10 (6-14) Blood Urea Nitrogen 19mg/dL (8-26) Creatinine 1.0mg/dL (0.7-1.3) Estimated GFR (Cockcroft-Gault) 77.0 Glucose Level 135mg/dL (70-99) Calcium Level 7.9mg/dL (8.5-10.1) Magnesium Level 2.1mg/dL (1.8-2.4) Creatine Kinase 611U/L (39-308) Glucose (Fingerstick) 137mg/dL (70-99) 132mg/dL (70-99) Medications Current Medications Heparin Sodium/ Dextrose 500 ml @ 0 mls/hr CONT PRN IV SEE I/O RECORD Last administered on 06/25/16t 22:53; Start 06/25/16 at 00:00; Stop 06/27/16 at 00:00; Status DC Heparin Sodium (Porcine) 1850 unit 1,850 unit PRN Q6HRS PRN IV FOR UFH LEVEL LESS THAN 0.2 Last administered on 06/25/16 07:53; Start 06/25/16 at 00:00; Stop 06/27/16 at 00:00; Status DC Tirofiban/Sodium Chloride 250 ml @ 0 mls/hr CONT PRN IV PER PROTOCOL Last administered on 06/24/16 23:45; Start 06/24/16 at 23:45; Stop 06/26/16 at 08:32; Status DC Nitroglycerin/ Dextrose 250 ml @ 0 mls/hr CONT IV ; Start 06/25/16 at 00:00; Status UNV Sodium Chloride 1,000 ml @ 60 mls/hr [id number] IV Last administered on 06/26/16 22:57; Start 06/25/16 at 00:00; Stop 06/27/16 at 17:03; Status DC Nitroglycerin/ Dextrose (Nitroglycerin Drip) 250 ml @ 20 mls/hr CONT PRN IV SEE I/O RECORD Last administered on 06/25/16 00:28; Start 06/25/16 at 00:15; Stop 06/25/16 at 13:32; Status DC Info (Do NOT chart on this placeholder) 1 each 1X ONCE MC ; Start 06/25/16 at 02 :00; Stop 06/25/16 at 02:01; Status UNV Pneumococcal Polyvalent Vaccine (Do NOT chart on this placeholder) 1 each 1X ONCE MC ; Start 06/25/16 at 02:00; Stop 06/25/16 at 02:01; Status UNV Influenza Virus Vaccine Quadrival (Fluarix Quad [id number] Syringe) 0.5 ml ONCE ONCE VAX IM Last administered on 06/25/16 11:39; Start 06/25/16 at 09:00; Stop 06/25/16 at 09:01; Status DC Pneumococcal Polyvalent Vaccine (Pneumovax 23) 0.5 ml ONCE ONCE VAX IM Last administered on 06/25/16 11:35; Start 06/25/16 at 09:00; Stop 06/25/16 at 09:01; Status DC Ondansetron HCl (Zofran) 4 mg STK-MED ONCE .ROUTE ; Start 06/25/16 at 07:45; Stop 06/25/16 at 07:46; Status DC Ondansetron HCl (Zofran) 4 mg PRN Q6HRS PRN IV NAUSEA/VOMITING 1ST CHOICE Last administered on 06/25/16 08:03; Start 06/25/16 at 08:00; Stop 06/27/16 at 14:37; Status DC Famotidine (Pepcid) 20 mg BID PO Last administered on 06/26/16 21:33; Start 06/25/16 at 09:00; Stop 06/27/16 at 14:33; Status DC Fentanyl Citrate (Fentanyl 2ml Vial) 100 mcg STK-MED ONCE .ROUTE ; Start at 22:00; Stop 06/25/16 at 08:29; Status DC Heparin Sodium/ Sodium Chloride 2,000 unit STK-MED ONCE .ROUTE ; Start 06/24/16 at 22:00; Stop 06/25/16 at 08:29; Status DC Iodixanol (Visipaque 320) 200 ml STK-MED ONCE .ROUTE ; Start 06/24/16 at 22:00; Stop 06/25/16 at 08:29; Status DC Lidocaine HCl 20 ml STK-MED ONCE .ROUTE ; Start 06/24/16 at 22:00; Stop 06/25/16 at 08:29; Status DC Midazolam HCl (Versed) 2 mg STK-MED ONCE .ROUTE ; Start 06/24/16 at 22:00; Stop 06/25/16 at 08:29; Status DC Nitroglycerin/ Dextrose (Nitroglycerin Drip) 50 mg STK-MED ONCE IV ; Start at 22:00; Stop 06/25/16 at 08:29; Status DC Info (Anti-Coagulation Monitoring By Pharmacy) 1 each PRN DAILY PRN MC SEE COMMENTS Last administered on 06/26/16 08:35; Start 06/25/16 at 13:30; Stop 06/27 at 08:13; Status DC Aspirin (Ecotrin) 81 mg DAILYWBKFT PO Last administered on 06/26/16 08:40; Start 06/25/16 at 14:00; Stop 06/27/16 at 14:30; Status DC Metoprolol Tartrate (Lopressor) 12.5 mg BID PO Last administered on 06/26/16 21 :34; Start 06/25/16 at 14:00; Stop 06/27/16 at 14:36; Status DC Acetaminophen (Tylenol) 500 mg PRN Q6HRS PRN PO MILD PAIN / TEMP Last administered on 06/25/16 15:15; Start 06/25/16 at 13:30; Stop 06/27/16 at 14:29; Status DC Atorvastatin Calcium (Lipitor) 40 mg QHS PO Last administered on 06/27/16 20: 38; Start 06/25/16 at 21:00 Acetaminophen (Tylenol) 325 mg PRN Q6HRS PRN PO MILD PAIN / TEMP; Start at 15:30; Stop 06/27/16 at 14:29; Status DC Acetaminophen/ Hydrocodone Bitart (Lortab 5/325) 1 tab PRN Q6HRS PRN PO MODERATE TO SEVERE PAIN; Start 06/25/16 at 15:30; Stop 06/27/16 at 14:34; Status DC Hydralazine HCl (Apresoline) 10 mg PRN Q4HRS PRN IVP ELEVATED BP, SEE COMMENTS ; Start 06/25/16 at 15:30 Ondansetron HCl (Zofran) 4 mg PRN Q8HRS PRN IV NAUSEA/VOMITING; Start 06/25/16 at 15:30; Stop 06/26/16 at 08:32; Status DC Albuterol Sulfate 2.5 mg 2.5 mg PRN Q4HRS PRN NEB SHORTNESS OF BREATH; Start at 15:30 Potassium Chloride 70 meq/ Sodium Bicarbonate 12.5 meq/Lidocaine HCl 24 ml/ Parenteral Electrolytes 571.5 ml @ 571.5 mls/ hr 1X PERIOP ONCE IRR ; Start at 06:00; Stop 06/27/16 at 06:59; Status DC Potassium Chloride 15 meq/ Sodium Bicarbonate 12.5 meq/Parenteral Electrolytes 520 ml @ 520 mls/hr 1X PERIOP ONCE IRR ; Start 06/27/16 at 06:00; Stop at 06:59; Status DC Heparin Sodium (Porcine) 25370 unit/Lactated Ringer's 1,020 ml @ 1,020 mls/hr 1X PERIOP ONCE IRR Last administered on 06/27/16 08:34; Start 06/27/16 at 06: 00; Stop 06/27/16 at 06:59; Status DC Cefazolin Sodium/ Sodium Chloride (Ancef/Iv Sodium Chloride 0.9% 500ml Bag) 500 ml @ 500 mls/hr 1X PERIOP ONCE IRR Last administered on 06/27/16 08:34; Start 06/27/16 at 06:00; Stop 06/27/16 at 06:59; Status DC Ondansetron HCl (Zofran) 4 mg PRN Q6HRS PRN IV Nausea; Start 06/27/16 at 07:00 ; Stop 06/27/16 at 15:00; Status DC Fentanyl Citrate (Fentanyl 2ml Vial) 25 mcg PRN Q5MIN PRN IV MILD PAIN; Start 06/27/16 at 07:00; Stop 06/27/16 at 15:00; Status DC Fentanyl Citrate (Fentanyl 2ml Vial) 50 mcg PRN Q5MIN PRN IV MODERATE PAIN; Start 06/27/16 at 07:00; Stop 06/27/16 at 15:00; Status DC Morphine Sulfate 1 mg 1 mg PRN Q10MIN PRN IV SEVERE PAIN; Start 06/27/16 at 07: 00; Stop 06/27/16 at 15:00; Status DC Lactated Ringer's (Iv Lactated Ringers) 1,000 ml @ 30 mls/hr Q24H IV Last administered on 06/27/16 07:14; Start 06/27/16 at 07:00; Stop 06/27/16 at 15:00 ; Status DC Lidocaine HCl 2 ml 1X PRN PRN ID IV START; Start 06/27/16 at 07:00; Stop at 15:00; Status DC Hydromorphone HCl (Dilaudid) 0.5 mg PRN Q10MIN PRN IV SEVERE PAIN, Second choice; Start 06/27/16 at 07:00; Stop 06/27/16 at 15:00; Status DC Prochlorperazine Edisylate (Compazine) 5 mg PACU PRN PRN IV NAUSEA; Start 06/27 at 07:00; Stop 06/27/16 at 23:00; Status DC Zolpidem Tartrate (Ambien) 5 mg 1X ONCE PO Last administered on 06/26/16 23:14 ; Start 06/26/16 at 23:15; Stop 06/26/16 at 23:16; Status DC Cellulose 1 each STK-MED ONCE .ROUTE Last administered on 06/27/16 08:34; Start 06/27/16 at 06:46; Stop 06/27/16 at 06:47; Status DC Papaverine HCl 60 mg STK-MED ONCE .ROUTE Last administered on 06/27/16 08:34; Start 06/27/16 at 06:46; Stop 06/27/16 at 06:47; Status DC Aspirin (Aspirin) 300 mg STK-MED ONCE .ROUTE Last administered on 06/27/16 13: 50; Start 06/27/16 at 06:46; Stop 06/27/16 at 06:47; Status DC Vancomycin HCl (Vanco) 10 gm 1X ONCE CEMENT Last administered on 06/27/16 08: 34; Start 06/27/16 at 07:30; Stop 06/27/16 at 07:31; Status DC Etomidate (Amidate) 20 mg STK-MED ONCE IV ; Start 06/27/16 at 06:55; Stop at 06:56; Status DC Phenylephrine HCl (Gustavo-Synephrine Inj) 10 mg STK-MED ONCE .ROUTE ; Start at 06:55; Stop 06/27/16 at 06:56; Status DC Aminocaproic Acid (Amicar) 5,000 mg STK-MED ONCE IV ; Start 06/27/16 at 06:55; Stop 06/27/16 at 06:56; Status DC Midazolam HCl (Versed) 2 mg STK-MED ONCE .ROUTE ; Start 06/27/16 at 06:55; Stop 06/27/16 at 06:56; Status DC Fentanyl Citrate (Fentanyl 2ml Vial) 100 mcg STK-MED ONCE .ROUTE ; Start at 06:55; Stop 06/27/16 at 06:56; Status DC Epinephrine HCl (Adrenalin) 1 mg STK-MED ONCE .ROUTE ; Start 06/27/16 at 06:56; Stop 06/27/16 at 06:57; Status DC Rocuronium [place] (Zemuron) 100 mg STK-MED ONCE .ROUTE ; Start 06/27/16 at 06: 56; Stop 06/27/16 at 06:57; Status DC Ephedrine Sulfate 50 mg STK-MED ONCE IV ; Start 06/27/16 at 06:56; Stop at 06:57; Status DC Sufentanil Citrate (Sufenta) 100 mcg STK-MED ONCE .ROUTE ; Start 06/27/16 at 06: 56; Stop 06/27/16 at 06:57; Status DC Heparin Sodium (Porcine) 18626 unit 30,000 unit STK-MED ONCE .ROUTE ; Start 03/03 at 06:59; Stop 06/27/16 at 07:00; Status DC Nitroglycerin/ Dextrose 250 ml @ As Directed STK-MED ONCE IV ; Start 06/27/16 at 07:02; Stop 06/27/16 at 07:03; Status DC Cefazolin Sodium/ Dextrose (Ancef 2gm Premix) 50 ml @ As Directed STK-MED ONCE IV ; Start 06/27/16 at 07:04; Stop 06/27/16 at 07:05; Status DC Epinephrine HCl 1 mg STK-MED ONCE .ROUTE ; Start 06/27/16 at 07:13; Stop at 07:14; Status DC Heparin Sodium (Porcine) 30,000 unit STK-MED ONCE .ROUTE ; Start 06/27/16 at 07: 14; Stop 06/27/16 at 07:15; Status DC Sodium Chloride (Sodium Chloride) 50 ml STK-MED ONCE IJ Last administered on 08:34; Start 06/27/16 at 07:25; Stop 06/27/16 at 07:26; Status DC Vancomycin HCl 10 gm 10 gm 1X ONCE CEMENT ; Start 06/27/16 at 07:45; Stop 06/27 at 07:46; Status DC Cefazolin Sodium/ Dextrose 50 ml @ 100 mls/hr 1X ONCE IV Last administered on 06/27/16 08:15; Start 06/27/16 at 07:45; Stop 06/27/16 at 08:14; Status DC Mannitol (Mannitol Iv Soln) 500 ml @ 0 mls/hr 1X ONCE IV ; Start 06/27/16 at 08 :00; Stop 06/27/16 at 08:01; Status DC Midazolam HCl (Versed) 2 mg STK-MED ONCE .ROUTE ; Start 06/27/16 at 08:36; Stop 06/27/16 at 08:37; Status DC Rocuronium [place] (Zemuron) 100 mg STK-MED ONCE .ROUTE ; Start 06/27/16 at 08: 47; Stop 06/27/16 at 08:48; Status DC Dexamethasone Sodium Phosphate (Decadron) 20 mg STK-MED ONCE .ROUTE ; Start 03/03 at 09:03; Stop 06/27/16 at 09:04; Status DC Protamine Sulfate 250 mg STK-MED ONCE IV ; Start 06/27/16 at 11:22; Stop at 11:23; Status DC Rocuronium [place] 50 mg 50 mg STK-MED ONCE .ROUTE ; Start 06/27/16 at 11:30; Stop 06/27/16 at 11:31; Status DC Insulin Human Regular/Sodium Chloride (Novolin R Vial/ Iv Normal Saline 150ml) 151.5 ml @ 7.46 mls/hr CONT PRN IV SEE I/O RECORD; Start 06/27/16 at 12:15; Stop 06/27/16 at 14:35; Status DC Midazolam HCl (Versed) 2 mg STK-MED ONCE .ROUTE ; Start 06/27/16 at 12:11; Stop 06/27/16 at 12:12; Status DC Sodium Bicarbonate 50 meq STK-MED ONCE .ROUTE ; Start 06/27/16 at 12:31; Stop at 12:32; Status DC Protamine Sulfate 50 mg STK-MED ONCE IV ; Start 06/27/16 at 12:34; Stop at 12:35; Status DC Protamine Sulfate 50 mg 50 mg STK-MED ONCE IV ; Start 06/27/16 at 12:35; Stop at 12:36; Status DC Epinephrine HCl/ Sodium Chloride (Adrenalin/Iv Sodium Chloride 0.9% 250ml) 254 ml @ 3.81 mls/hr 1X ONCE IV ; Start 06/27/16 at 13:15; Stop 06/27/16 at 14:31 ; Status DC Lidocaine HCl (Xylocaine-Mpf 1% Vial) 5 ml STK-MED ONCE .ROUTE ; Start 06/27/16 at 13:04; Stop 06/27/16 at 13:05; Status DC Magnesium Sulfate 5 gm 5 gm STK-MED ONCE .ROUTE ; Start 06/27/16 at 13:04; Stop 06/27/16 at 13:05; Status DC Albumin Human (Albuminar) 200 ml @ As Directed STK-MED ONCE IV ; Start at 13:04; Stop 06/27/16 at 13:05; Status DC Sodium Bicarbonate 50 meq STK-MED ONCE .ROUTE ; Start 06/27/16 at 13:04; Stop at 13:05; Status DC Sodium Chloride 3 ml 3 ml PRN Q12HR PRN IV AFTER MEDS AND BLOOD DRAWS; Start at 13:00 Lactated Ringer's 1,000 ml @ 30 mls/hr Q24H IV Last administered on 06/27/16t 16:11; Start 06/27/16 at 12:50 Insulin Human Regular/Sodium Chloride (Novolin R Vial/ Iv Normal Saline 150ml) 151.5 ml @ 0 mls/hr CONT PRN PRN IV SEE I/O RECORD; Start 06/27/16 at 13:00 Dextrose 25 gm 25 gm PRN Q15MIN PRN IV LOW BLOOD SUGAR; Start 06/27/16 at 13:00 Nitroglycerin/ Dextrose 250 ml @ 0 mls/hr CONT PRN PRN IV SEE I/O RECORD; Start 06/27/16 at 13:00 Dopamine HCl/ Dextrose 250 ml @ 0 mls/hr CONT PRN PRN IV SEE I/O RECORD; Start 06/27/16 at 13:00 Dobutamine HCl/ Dextrose 250 ml @ 0 mls/hr CONT PRN PRN IV SEE I/O RECORD; Start 06/27/16 at 13:00 Phenylephrine HCl 20 mg/Sodium Chloride 252 ml @ 0 mls/hr CONT PRN PRN IV HYPOTENSION; Start 06/27/16 at 13:00 Epinephrine HCl 4 mg/Sodium Chloride 254 ml @ 0 mls/hr CONT PRN PRN IV POST CV SURGERY; Start 06/27/16 at 13:00 Amiodarone HCl 150 mg/Dextrose 103 ml @ 200 mls/hr 1X PRN PRN IV FOR RUNS OF VT; Start 06/27/16 at 13:00; Stop 06/27/16 at 13:13; Status DC Amiodarone HCl 900 mg/Dextrose 518 ml @ 33.33 mls/ hr CONT PRN PRN IV RUNS OF VT; Start 06/27/16 at 13:00; Stop 06/27/16 at 13:13; Status DC Amiodarone HCl 150 mg/Dextrose 103 ml @ 200 mls/hr 1X PRN PRN IV [place] Last administered on 06/27/16 15:47; Start 06/27/16 at 13:00 Amiodarone HCl/ Dextrose (Cordarone) 518 ml @ 33.33 mls/ hr CONT PRN PRN IV SEE COMMENTS Last administered on 06/27/16 15:49; Start 06/27/16 at 13:00 Info 1 ea CONT PRN PRN MC SEE COMMENTS; Start 06/27/16 at 13:00 Info 1 ea 1 ea CONT PRN PRN MC SEE COMMENTS; Start 06/27/16 at 13:00 Magnesium Sulfate/ Dextrose (Magnesium Sulfate PREMIX 1GM) 100 ml @ 100 mls/hr PRN DAILY PRN IV FOR MAG < 2.2; Start 06/27/16 at 13:00 Famotidine (Pepcid) 20 mg BID IVP ; Start 06/27/16 at 21:00; Stop 06/27/16 at 21 :00; Status DC Ondansetron HCl (Zofran) 4 mg PRN Q4HRS PRN IV NAUSEA/VOMITING Last administered on 06/27/16 16:54; Start 06/27/16 at 13:00 Morphine Sulfate 2 mg PRN Q1HR PRN IV PAIN Last administered on 06/27/16 23:14 ; Start 06/27/16 at 13:00 Acetaminophen (Tylenol) 650 mg PRN Q4HRS PRN PO MILD PAIN / TEMP; Start at 13:00 Acetaminophen (Tylenol) 650 mg PRN Q4HRS PRN [place] MILD PAIN / TEMP; Start at 13:00 Meperidine HCl 12.5 mg 12.5 mg PRN Q15MIN PRN IV SHIVERING; Start 06/27/16 at 13:00; Stop 06/28/16 at 13:00 Propofol (Diprivan) 100 ml @ 0 mls/hr CONT PRN PRN IV POSTOP SEDATION UNTIL EXTUBATE; Start 06/27/16 at 13:00 Senna/Docusate Sodium (Senna Plus) 1 tab BID PO Last administered on 06/27/16 20:39; Start 06/27/16 at 21:00 Bisacodyl (Dulcolax Supp) 10 mg PRN DAILY PRN OH NO BOWEL MOVEMENT; Start 06/27 at 13:00 Aspirin (Ecotrin) 325 mg DAILYWBKFT PO ; Start 06/28/16 at 08:00 Aspirin (Aspirin) 300 mg PRN DAILY PRN OH IF UNABLE TO TAKE PO; Start 06/27/16 at 13:00 Metoprolol Tartrate 25 mg 25 mg BID PO ; Start 06/28/16 at 09:00 Clevidipine (Cleviprex) 100 ml @ 0 mls/hr CONT PRN IV PER PROTOCOL; Start 06/27 at 13:00 Acetaminophen/ Hydrocodone Bitart (Lortab 5/325) 1 tab PRN Q4HRS PRN PO MILD PAIN Last administered on 06/28/16 07:03; Start 06/27/16 at 13:00 Acetaminophen/ Hydrocodone Bitart 2 tab 2 tab PRN Q4HRS PRN PO MODERATE PAIN, SEVERE PAIN; Start 06/27/16 at 13:00 Cefazolin Sodium/ Sodium Chloride (Ancef/Iv Sodium Chloride 0.9% 50ml) 50 ml @ 100 mls/hr Q8H IV ; Start 06/27/16 at 16:00; Stop 06/27/16 at 16:00; Status DC Hydromorphone HCl (Dilaudid) 0.2 mg PRN Q1HR PRN IVP PAIN Last administered on 06/28/16 09:07; Start 06/27/16 at 13:00 Hydromorphone HCl (Dilaudid) 0.4 mg PRN Q1HR PRN IVP PAIN; Start 06/27/16 at 13 :00 Midazolam HCl 2 mg 2 mg STK-MED ONCE .ROUTE ; Start 06/27/16 at 13:47; Stop 03/03 at 13:48; Status DC Albumin Human 250 ml @ 62.5 mls/hr 1X ONCE IV Last administered on 06/27/16 15:28; Start 06/27/16 at 15:00; Stop 06/27/16 at 18:59; Status DC Cefazolin Sodium 1 gm/Sodium Chloride 50 ml @ 100 mls/hr Q8H IV Last administered on 06/28/16 03:32; Start 06/27/16 at 19:00; Stop 06/29/16 at 03:29 Potassium Chloride 50 ml @ 0 mls/hr Q1H IV Last administered on 06/27/16 18:05 ; Start 06/27/16 at 15:15; Stop 06/27/16 at 18:16; Status DC Calcium Chloride 1000 mg/Sodium Chloride 60 ml @ 120 mls/hr 1X ONCE IV ; Start 06/27/16 at 15:15; Stop 06/27/16 at 15:44; Status Cancel Amiodarone HCl 150 mg/Dextrose 103 ml @ 200 mls/hr 1X PRN PRN IV [place]; Start 03/03 at 15:30; Stop 06/27/16 at 15:30; Status DC Amiodarone HCl 150 mg/Dextrose 103 ml @ 200 mls/hr 1X ONCE IV Last administered on 06/27/16 15:30; Start 06/27/16 at 15:30; Stop 06/27/16 at 16:00 ; Status DC Calcium Gluconate/ Sodium Chloride (Iv Sodium Chloride 0.9% 100ml) 110 ml @ 220 mls/hr 1X ONCE IV Last administered on 06/27/16 15:49; Start 06/27/16 at 15:30; Stop 06/27/16 at 15:59; Status DC Famotidine (Pepcid) 20 mg BID PO Last administered on 06/27/16 20:39; Start at 21:00 Furosemide (Lasix) 40 mg Q12H IVP Last administered on 06/28/16 07:01; Start 06/28/16 at 07:00 Active Scripts Active Reported Niaspan (Niacin) 500 Mg Tab.er.24h 1 Tab PO DAILY Excedrin Migraine Caplet (Aspirin/Acetaminophen/Caffeine) 1 Each Tablet 1 Each PO PRN DAILY PRN Vitals/I & O Vital Sign - Last 24 Hours 06/27/16 06/27/16 06/27/16 06/27/16 14:10 14:20 14:20 14:30 Temp 96.2 96.2 96.2 96.2 Pulse 99 Resp 14 14 B/P 103/50 84/39 Pulse Ox 100 80 80 O2 Delivery Ventilator Ventilator Ventilator 06/27/16 06/27/16 06/27/16 06/27/16 14:35 15:00 15:00 15:00 Temp 96.3 96.3 Pulse 99 93 Resp 14 B/P 87/47 114/56 Pulse Ox 50 O2 Delivery Mechanical Ventilator Ventilator 06/27/16 06/27/16 06/27/16 06/27/16 15:15 15:30 15:45 15:47 Pulse 93 122 106 77 B/P 145/78 144/89 103/63 132/89 06/27/16 06/27/16 06/27/16 06/27/16 16:00 16:03 16:54 17:00 Temp 98.4 98.4 Pulse 100 Resp 14 14 14 B/P 135/83 Pulse Ox 40 100 100 99 O2 Delivery Ventilator Ventilator Ventilator Ventilator 06/27/16 06/27/16 06/27/16 06/27/16 17:28 18:00 18:00 18:04 Pulse 100 Resp 12 B/P 114/68 Pulse Ox 100 99 100 O2 Delivery Nasal Cannula Room Air Room Air O2 Flow Rate 4.0 4.0 06/27/16 06/27/16 06/27/16 06/27/16 19:00 19:00 19:46 20:00 Pulse 100 Resp 20 24 B/P 114/64 90/58 Pulse Ox 99 98 O2 Delivery Nasal Cannula Nasal Cannula O2 Flow Rate 4.0 4.0 06/27/16 06/27/16 06/27/16 06/27/16 20:00 20:00 20:41 21:00 Temp 97.8 97.8 Pulse 87 86 Resp 24 22 20 B/P Pulse Ox 94 97 98 O2 Delivery Nasal Cannula Nasal Cannula Nasal Cannula Nasal Cannula O2 Flow Rate 4.0 4.0 4.0 4.0 06/27/16 06/27/16 06/27/16 06/27/16 21:00 22:00 22:00 23:00 Pulse 84 80 Resp 24 14 B/P 90/58 96/65 Pulse Ox 94 96 O2 Delivery Nasal Cannula Nasal Cannula O2 Flow Rate 4.0 4.0 06/27/16 06/27/16 06/27/1617 23:00 23:14 23:44 00:00 Resp 24 22 B/P 99/67 121/73 Pulse Ox 97 O2 Delivery Room Air Nasal Cannula O2 Flow Rate 4.0 4.0 06/28/16 06/28/16 06/28/16 06/28/16 00:00 00:00 01:00 01:00 Pulse 82 82 Resp 23 14 B/P 104/64 Pulse Ox 97 97 O2 Delivery Nasal Cannula Nasal Cannula Nasal Cannula O2 Flow Rate 4.0 4.0 4.0 06/28/16 06/28/16 06/28/16 06/28/16 02:00 02:00 02:06 03:00 Pulse 82 Resp 14 21 B/P 104/68 122/70 Pulse Ox 97 O2 Delivery Nasal Cannula Nasal Cannula O2 Flow Rate 4.0 4.0 06/28/16 06/28/16 06/28/16 06/28/16 03:00 04:00 04:00 04:00 Temp 97.6 97.6 Pulse 82 84 Resp 15 17 B/P 113/72 Pulse Ox 98 97 O2 Delivery Nasal Cannula Nasal Cannula Nasal Cannula O2 Flow Rate 4.0 4.0 4.0 06/28/16 06/28/16 06/28/16 06/28/16 05:00 05:00 05:16 06:00 Pulse 83 Resp 16 18 B/P 116/65 132/74 Pulse Ox 98 95 O2 Delivery Nasal Cannula Nasal Cannula O2 Flow Rate 4.0 4.0 06/28/16 06/28/16 06/28/16 06/28/16 06:00 06:16 07:03 07:35 Pulse 89 Resp 22 16 22 30 B/P Pulse Ox 98 97 96 95 O2 Delivery Nasal Cannula Nasal Cannula Nasal Cannula Nasal Cannula O2 Flow Rate 4.0 4.0 4.0 4.0 06/28/16 09:07 Resp 16 Pulse Ox 97 O2 Delivery Nasal Cannula O2 Flow Rate 4.0 Intake and Output 06/27/16 06/27/16 06/28/16 15:00 23:00 07:00 Intake Total 500 ml 832 ml 1769 ml Output Total 225 ml 1774 ml 515 ml Balance 275 ml -942 ml 1254 ml LA GUERRERO MD Jun 28, 2016 09:46
[2016-06-28] MEDS: ASPIRIN ENTERIC COATED 325 MG TABLET.DR. PO SCH (10:28)
[2016-06-28] MEDS: SENNOSIDES/DOCUSATE 8.6/50MG TABLET. PO SCH ×2 (10:28→20:43)
[2016-06-28] MEDS: METOPROLOL TART IMMED RELEASE 25 MG TABLET PO SCH ×2 (10:28→20:43)
[2016-06-28] MEDS: FAMOTIDINE 20 MG TABLET. PO SCH ×2 (10:30→20:42)
[2016-06-28] MEDS ORDERED: KETOROLAC TROMETHAMINE 30 MG/ML SYRINGE. IV PRN ×2 (10:45→15:30)
[2016-06-28] MEDS: ONDANSETRON PF 4 MG/2 ML VIAL. IV PRN (13:15)
[2016-06-28] MEDS ORDERED: ALBUMIN HUMAN 5% 500 ML IV ONE (13:45)
[2016-06-28] MEDS ORDERED: PROCHLORPERAZINE 10 MG/2 ML VIAL. IV STA (14:34)
[2016-06-28] MEDS ORDERED: PROCHLORPERAZINE 10 MG/2 ML VIAL. IV PRN (14:45)
[2016-06-28] MEDS: PHENYLEPHRINE INJ 20 MG in IV NORMAL SALINE 250ML 250 ML IV PRN ×2 (14:53→22:19)
--- NOTE | 2016-06-28 15:26 | PDOC ---
Progress Note Subjective Subjective Fast track extubation yesterday. Doing very well today. Diuresed 2 L with 1 dose of 40 mg IV Lasix. Had some orthostatic hypotension after going for a walk. On 2 L nasal cannula. Normal sinus rhythm. Minimal drain output. ROS ROS No nausea No vomiting No pain No rash Vital Sign Vital Signs Vital Signs Date Time Temp Pulse Resp B/P Pulse Ox O2 Delivery O2 Flow Rate FiO2 06/28/16 10:33 16 95 Nasal Cannula 1.0 06/28/16 10:28 85 115/77 06/28/16 04:00 97.6 97.6 Physical Exam PHYSICAL EXAM GENERAL: NAD, Alert HEENT: PERRL, OC/OP NECK: Supple, no JVD, no LN LUNGS: Clear HEART: S1S2, no gallop, no murmur ABD: Soft, NT, no organomegaly, no rebound EXT: No edema, no cyanosis LEAD RECOVERER: Alert, oriented x 3, no focal neurologic deficit SKIN: No rash IV: ok Labs Lab Laboratory Tests Test 06/27/16 16:45 06/27/16 17:11 06/27/16 18:50 06/27/16 18:51 O2 Saturation 98% (92-99) Arterial Blood pH 7.37 (7.35-7.45) Arterial Blood pCO2 at Patient Temp 41mmHg (35-46) Arterial Blood pO2 at Patient Temp 118mmHg (75-108) Arterial Blood HCO3 23mmol/L (21-28) Arterial Blood Base Excess -2mmol/L (-3-3) FiO2 40 Glucose (Fingerstick) 172mg/dL (70-99) 124mg/dL (70-99) White Blood Count 9.6x10^3/uL (4.0-11.0) Red Blood Count 3.41x10^6/uL (4.30-5.70) Hemoglobin 10.0g/dL (13.0-17.5) Hematocrit 29.3% (39.0-53.0) Mean Corpuscular Volume 86fL (79-100) Mean Corpuscular Hemoglobin 29pg (25-35) Mean Corpuscular Hemoglobin Concent 34g/dL (31-37) Red Cell Distribution Width 14.4% (11.5-14.5) Platelet Count 100x10^3/uL (140-400) Potassium Level 5.1mmol/L (3.5-5.1) Magnesium Level 2.3mg/dL (1.8-2.4) Test 06/27/16 19:50 06/27/16 20:57 06/27/16 22:00 06/27/16 23:02 Glucose (Fingerstick) 121mg/dL (70-99) 144mg/dL (70-99) 133mg/dL (70-99) 126mg/dL (70-99) Test 06/28/16 00:06 06/28/16 01:06 06/28/16 02:06 06/28/16 03:03 Glucose (Fingerstick) 138mg/dL (70-99) 125mg/dL (70-99) 127mg/dL (70-99) 119mg/dL (70-99) Test 06/28/16 04:02 06/28/16 05:09 06/28/16 05:59 06/28/16 06:00 Glucose (Fingerstick) 125mg/dL (70-99) 130mg/dL (70-99) 129mg/dL (70-99) White Blood Count 9.9x10^3/uL (4.0-11.0) Red Blood Count 3.35x10^6/uL (4.30-5.70) Hemoglobin 9.7g/dL (13.0-17.5) Hematocrit 29.5% (39.0-53.0) Mean Corpuscular Volume 88fL (79-100) Mean Corpuscular Hemoglobin 29pg (25-35) Mean Corpuscular Hemoglobin Concent 33g/dL (31-37) Red Cell Distribution Width 14.7% (11.5-14.5) Platelet Count 119x10^3/uL (140-400) Neutrophils (%) (Auto) 82% (31-73) Lymphocytes (%) (Auto) 7% (24-48) Monocytes (%) (Auto) 11% (0-9) Eosinophils (%) (Auto) 0% (0-3) Basophils (%) (Auto) 0% (0-3) Neutrophils # (Auto) 8.0x10^3uL (1.8-7.7) Lymphocytes # (Auto) 0.7x10^3/uL (1.0-4.8) Monocytes # (Auto) 1.1x10^3/uL (0.0-1.1) Eosinophils # (Auto) 0.0x10^3/uL (0.0-0.7) Basophils # (Auto) 0.0x10^3/uL (0.0-0.2) Prothrombin Time 15.9SEC (11.7-14.0) Prothromb Time International Ratio 1.4 (0.8-1.1) Sodium Level 137mmol/L (136-145) Potassium Level 4.4mmol/L (3.5-5.1) Chloride Level 105mmol/L (98-107) Carbon Dioxide Level 22mmol/L (21-32) Anion Gap 10 (6-14) Blood Urea Nitrogen 19mg/dL (8-26) Creatinine 1.0mg/dL (0.7-1.3) Estimated GFR (Cockcroft-Gault) 77.0 Glucose Level 135mg/dL (70-99) Calcium Level 7.9mg/dL (8.5-10.1) Magnesium Level 2.1mg/dL (1.8-2.4) Creatine Kinase 611U/L (39-308) Test 2 07:19 2 09:02 06/28/16 10:09 06/28/16 11:37 Glucose (Fingerstick) 137mg/dL (70-99) 132mg/dL (70-99) 128mg/dL (70-99) 171mg/dL (70-99) Test 06/28/16 13:12 06/28/16 14:26 Glucose (Fingerstick) 162mg/dL (70-99) 137mg/dL (70-99) Objective Assessment POD#1, s/p CABG x 3 (SVG to LAD, SVG to OM2, SVG to distal RCA), doing very well. Diuresed 2 L with 1 dose of 40 mg IV Lasix and subsequently developed orthostatic hypotension after going for a walk. In normal sinus rhythm. On 2 L nasal cannula. Minimal drain output. Plan Plan of Care DC mediastinal tubes DC arterial line Will reduce Lasix to 20 mg IV twice daily Switch amiodarone drip to po 200mg twice daily for A. fib prophylaxis Aspirin, beta lanre and statin Okay to use 15 mg of Toradol when necessary for pain Ambulation and pulmonary toilet JESS KEEN MD Jun 28, 2016 15:25
[2016-06-28] MEDS ORDERED: SIMETHICONE 80 MG TAB.CHEW PO SCH (18:00)
[2016-06-28] MEDS: IV RINGERS,LACTATED 1000ML 1,000 ML IV SCH (19:32)
[2016-06-28] MEDS: ATORVASTATIN CALCIUM 40 MG TABLET. PO SCH (20:42)
[2016-06-28] MEDS: AMIODARONE HCL 200 MG TABLET PO SCH (20:42)
[2016-06-28] MEDS ORDERED: FUROSEMIDE 20 MG/2 ML VIAL IVP ONE (23:15)
[2016-06-29] VITALS (24 sets, daily range): BP systolic 82–134; BP diastolic 59–88
[2016-06-29] MEDS: HYDROCODONE/APAP 5/325MG TABLET. PO PRN ×6 (00:18→23:33)
[2016-06-29] MEDS: CEFAZOLIN SODIUM 1 GM in IV NORMAL SALINE 50ML 50 ML IV SCH (03:15)
[2016-06-29 06:23] LABS: BASO # 0.1 x10^3/uL (0.0-0.2); BASO % 1 % (0-3); EOS % 1 % (0-3); HEMATOCRIT 27.8 % (39.0-53.0); HEMOGLOBIN 9.2 g/dL (13.0-17.5); LYMPH # 0.8 x10^3/uL (1.0-4.8); LYMPH % 8 % (24-48); MEAN CORPUSCULAR HEMOGLOBIN 29 pg (25-35); MEAN CORPUSCULAR HGB CONC 33 g/dL (31-37); MEAN CORPUSCULAR VOLUME 88 fL (79-100); MONO % 11 % (0-9); NEUT % 80 % (31-73); PLATELET COUNT 123 x10^3/uL (140-400); RED BLOOD COUNT 3.15 x10^6/uL (4.30-5.70); WHITE BLOOD COUNT 10.2 x10^3/uL (4.0-11.0)
[2016-06-29 06:53] LABS: CALCIUM 8.1 mg/dL (8.5-10.1); CREATININE 1.3 mg/dL (0.7-1.3); GFR 56.9
[2016-06-29] MEDS: HYDROMORPHONE 2 MG/ML VIAL. IVP PRN ×3 (08:15→09:23)
--- NOTE | 2016-06-29 08:28 | RAD ---
Single view chest History:Postop, shortness of air An AP view of the chest is submitted. Comparison: 06/28/2016. Findings: There is remaining left chest tube, also right internal jugular vascular sheath. There has been a median sternotomy as seen previously. No pneumothorax is identified. There is likely atelectasis lateral left lung base, somewhat poorly defined right hemidiaphragm which could be due to mild atelectasis and/or minimal pleural fluid. Pericardial cardiac silhouette is similar. Impression: There is remaining left chest tube and right internal jugular vascular sheath. There is atelectasis left lateral lung base, also likely mild atelectasis and/or pleural effusion right lung base.
[2016-06-29] MEDS: ASPIRIN ENTERIC COATED 325 MG TABLET.DR. PO SCH (08:44)
[2016-06-29] MEDS: SENNOSIDES/DOCUSATE 8.6/50MG TABLET. PO SCH ×2 (08:44→20:26)
[2016-06-29] MEDS: FAMOTIDINE 20 MG TABLET. PO SCH ×2 (08:45→20:26)
[2016-06-29] MEDS: AMIODARONE HCL 200 MG TABLET PO SCH (08:45)
--- NOTE | 2016-06-29 10:01 | PDOC ---
PROGRESS NOTES Chief Complaint Chief Complaint A/P 1. ST elevation CT, anterior wall 2. 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 3. Severe cardiomyopathy, ischemic Plan s/p CABG POD 3 iv amadinone , change to PO low dose beta lanre on Phenylephedrine gtt, weaning off. monitor electrolytes Monitor platelets Mediastinal tube removed, chest tube still present Pain control with iv Dilaudid, prn Toradol CVTS/cardiology following incentive spirometry History of Present Illness History of Present Illness No chest pain no fever no chills seen after surgery Vitals Vitals Vital Signs Date Time Temp Pulse Resp B/P Pulse Ox O2 Delivery O2 Flow Rate FiO2 06/29/16 09:47 16 98 Nasal Cannula 2.0 06/29/16 08:45 87 113/80 06/29/16 05:00 98.1 98.1 Physical Exam General: Alert, Oriented X3, Cooperative, No acute distress Heart: Regular rate, Normal S1, Normal S2, No murmurs Lungs: Clear Abdomen: Normal bowel sounds, Soft, No tenderness Extremities: No edema Skin: No significant lesion Labs LABS Laboratory Tests Test 06/28/16 10:09 06/28/16 11:37 06/28/16 13:12 06/28/16 14:26 Glucose (Fingerstick) 128mg/dL (70-99) 171mg/dL (70-99) 162mg/dL (70-99) 137mg/dL (70-99) Test 06/28/16 15:42 06/28/16 17:08 06/28/16 18:11 06/28/16 19:15 Glucose (Fingerstick) 126mg/dL (70-99) 107mg/dL (70-99) 168mg/dL (70-99) 171mg/dL (70-99) Test 06/28/16 20:26 06/28/16 21:29 06/28/16 23:01 06/29/16 01:08 Glucose (Fingerstick) 110mg/dL (70-99) 120mg/dL (70-99) 125mg/dL (70-99) 92mg/dL (70-99) Test 06/29/16 03:08 06/29/16 05:58 06/29/16 06:00 06/29/16 09:03 Glucose (Fingerstick) 105mg/dL (70-99) 95mg/dL (70-99) 135mg/dL (70-99) White Blood Count 10.2x10^3/uL (4.0-11.0) Red Blood Count 3.15x10^6/uL (4.30-5.70) Hemoglobin 9.2g/dL (13.0-17.5) Hematocrit 27.8% (39.0-53.0) Mean Corpuscular Volume 88fL (79-100) Mean Corpuscular Hemoglobin 29pg (25-35) Mean Corpuscular Hemoglobin Concent 33g/dL (31-37) Red Cell Distribution Width 15.0% (11.5-14.5) Platelet Count 123x10^3/uL (140-400) Neutrophils (%) (Auto) 80% (31-73) Lymphocytes (%) (Auto) 8% (24-48) Monocytes (%) (Auto) 11% (0-9) Eosinophils (%) (Auto) 1% (0-3) Basophils (%) (Auto) 1% (0-3) Neutrophils # (Auto) 8.1x10^3uL (1.8-7.7) Lymphocytes # (Auto) 0.8x10^3/uL (1.0-4.8) Monocytes # (Auto) 1.1x10^3/uL (0.0-1.1) Eosinophils # (Auto) 0.1x10^3/uL (0.0-0.7) Basophils # (Auto) 0.1x10^3/uL (0.0-0.2) Sodium Level 136mmol/L (136-145) Potassium Level 4.0mmol/L (3.5-5.1) Chloride Level 104mmol/L (98-107) Carbon Dioxide Level 26mmol/L (21-32) Anion Gap 6 (6-14) Blood Urea Nitrogen 28mg/dL (8-26) Creatinine 1.3mg/dL (0.7-1.3) Estimated GFR (Cockcroft-Gault) 56.9 Glucose Level 104mg/dL (70-99) Calcium Level 8.1mg/dL (8.5-10.1) Assessment and Plan Assessmemt and Plan Problems Medical Problems: (1) CAD (coronary artery disease) Status: Acute Problems: Comment Review of Relevant I have reviewed the following items fco (where applicable) has been applied. Labs Laboratory Tests Test 06/27/16 10:57 06/27/16 11:53 06/27/16 12:22 06/27/16 12:53 Bedside Hemoglobin (Calculated) 13.3g/dL (14-18) 10.2g/dL (14-18) 9.5g/dL (14-18) Bedside Hematocrit 39% (37-52) 31% (37-52) 30% (37-52) 28% (37-52) Bedside Arterial pH 7.33 (7.35-7.45) 7.33 (7.35-7.45) 7.36 (7.35-7.45) Bedside Arterial pCO2 41mmHg (35-45) 43mmHg (35-45) 38mmHg (35-45) Bedside Arterial pO2 321mmHg (75-100) 407mmHg (75-100) 335mmHg (75-100) Bedside Arterial HCO3 22mmol/L (21-28) 23mmol/L (21-28) 21mmol/L (21-28) Bedside Arterial Total CO2 23mmol/L (21-32) 24mmol/L (21-32) 23mmol/L (21-32) Arterial Bld O2 Saturation (Measur) 100% (95-99) 100% (95-99) 100% (95-99) Bedside Arterial Blood Base Excess -4mmol/L (0-3) -3mmol/L (0-3) -4mmol/L (0-3) Bedside FiO2 100.0 100 80.0 80.0 Bedside Sodium 138mmol/L (135-145) 137mmol/L (135-145) 137mmol/L (135-145) 136mmol/L (135-145) Bedside Potassium 4.1mmol/L (3.5-5.0) 4.1mmol/L (3.5-5.0) 4.8mmol/L (3.5-5.0) 5.8mmol/L (3.5-5.0) Glucose Level 129mg/dL (70-99) 159mg/dL (70-99) 190mg/dL (70-99) 205mg/dL (70-99) Bedside Ionized Calcium (Anaid) 1.15mmol/L (1.13-1.32) 1.08mmol/L (1.13-1.32) 1.09mmol/L (1.13-1.32) 1.07mmol/L (1.13-1.32) Bedside Venous pH 7.27 (7.32-7.42) Bedside Venous pCO2 46mmHg (41-51) Bedside Venous pO2 57mmHg (20-40) Bedside Venous HCO3 21mmol/L (24-28) Bedside Venous Blood Total CO2 22mmol/L (21-32) Bedside Venous Blood O2 Saturation 85% Bedside Venous Blood Base Excess -6mmol/L (0-3) POC Venous Hemoglobin (Calc) 10.5g/dL (14-18) Test 06/27/16 13:06 06/27/16 13:27 06/27/16 13:59 06/27/16 14:38 White Blood Count 11.3x10^3/uL (4.0-11.0) Hemoglobin 8.5g/dL (13.0-17.5) Hematocrit 25.6% (39.0-53.0) Platelet Count 98x10^3/uL (140-400) Prothrombin Time 19.6SEC (11.7-14.0) Prothromb Time International Ratio 1.8 (0.8-1.1) Activated Partial Thromboplast Time 34SEC (24-38) Fibrinogen 267mg/dL (200-440) Bedside Hemoglobin (Calculated) 8.5g/dL (14-18) 8.5g/dL (14-18) 9.9g/dL (14-18) Bedside Hematocrit 25% (37-52) 25% (37-52) 29% (37-52) Bedside Arterial pH 7.27 (7.35-7.45) 7.38 (7.35-7.45) 7.36 (7.35-7.45) Bedside Arterial pCO2 48mmHg (35-45) 44mmHg (35-45) 43mmHg (35-45) Bedside Arterial pO2 253mmHg (75-100) 276mmHg (75-100) 125mmHg (75-100) Bedside Arterial HCO3 22mmol/L (21-28) 26mmol/L (21-28) 25mmol/L (21-28) Bedside Arterial Total CO2 23mmol/L (21-32) 27mmol/L (21-32) 26mmol/L (21-32) Arterial Bld O2 Saturation (Measur) 100% (95-99) 100% (95-99) 99% (95-99) Bedside Arterial Blood Base Excess -5mmol/L (0-3) 1mmol/L (0-3) -1mmol/L (0-3) Bedside FiO2 80.0 100.0 100.0 Bedside Sodium 136mmol/L (135-145) 140mmol/L (135-145) 141mmol/L (135-145) Bedside Potassium 4.9mmol/L (3.5-5.0) 3.6mmol/L (3.5-5.0) 3.5mmol/L (3.5-5.0) Glucose Level 175mg/dL (70-99) 161mg/dL (70-99) 140mg/dL (70-99) Bedside Ionized Calcium (Anaid) 1.09mmol/L (1.13-1.32) 1.05mmol/L (1.13-1.32) 1.07mmol/L (1.13-1.32) Test 06/27/16 14:40 06/27/16 14:51 06/27/16 16:45 06/27/16 17:11 White Blood Count 9.7x10^3/uL (4.0-11.0) Red Blood Count 3.07x10^6/uL (4.30-5.70) Hemoglobin 8.9g/dL (13.0-17.5) Hematocrit 26.6% (39.0-53.0) Mean Corpuscular Volume 87fL (79-100) Mean Corpuscular Hemoglobin 29pg (25-35) Mean Corpuscular Hemoglobin Concent 34g/dL (31-37) Red Cell Distribution Width 14.4% (11.5-14.5) Platelet Count 73x10^3/uL (140-400) Prothrombin Time 18.9SEC (11.7-14.0) Prothromb Time International Ratio 1.7 (0.8-1.1) Activated Partial Thromboplast Time 38SEC (24-38) Sodium Level 146mmol/L (136-145) Potassium Level 2.9mmol/L (3.5-5.1) Chloride Level 112mmol/L (98-107) Carbon Dioxide Level 24mmol/L (21-32) Anion Gap 10 (6-14) Blood Urea Nitrogen 15mg/dL (8-26) Creatinine 1.1mg/dL (0.7-1.3) Estimated GFR (Cockcroft-Gault) 69.0 Glucose Level 122mg/dL (70-99) Glucose (Fingerstick) 122mg/dL (70-99) 172mg/dL (70-99) Calcium Level 6.7mg/dL (8.5-10.1) Magnesium Level 2.3mg/dL (1.8-2.4) O2 Saturation 98% (92-99) 98% (92-99) Arterial Blood pH 7.27 (7.35-7.45) 7.37 (7.35-7.45) Arterial Blood pH (Temp corrected) 7.29 Arterial Blood pCO2 at Patient Temp 47mmHg (35-46) 41mmHg (35-46) Arterial Blood pCO2 (Temp correct) 44mmHg Arterial Blood pO2 at Patient Temp 176mmHg (75-108) 118mmHg (75-108) Arterial Blood pO2 (Temp corrected) 169mmHg Arterial Blood HCO3 21mmol/L (21-28) 23mmol/L (21-28) Arterial Blood Base Excess -6mmol/L (-3-3) -2mmol/L (-3-3) FiO2 80 40 Test 06/27/16 18:50 06/27/16 18:51 06/27/16 19:50 06/27/16 20:57 Glucose (Fingerstick) 124mg/dL (70-99) 121mg/dL (70-99) 144mg/dL (70-99) White Blood Count 9.6x10^3/uL (4.0-11.0) Red Blood Count 3.41x10^6/uL (4.30-5.70) Hemoglobin 10.0g/dL (13.0-17.5) Hematocrit 29.3% (39.0-53.0) Mean Corpuscular Volume 86fL (79-100) Mean Corpuscular Hemoglobin 29pg (25-35) Mean Corpuscular Hemoglobin Concent 34g/dL (31-37) Red Cell Distribution Width 14.4% (11.5-14.5) Platelet Count 100x10^3/uL (140-400) Potassium Level 5.1mmol/L (3.5-5.1) Magnesium Level 2.3mg/dL (1.8-2.4) Test 06/27/16 22:00 06/27/16 23:02 06/28/16 00:06 06/28/16 01:06 Glucose (Fingerstick) 133mg/dL (70-99) 126mg/dL (70-99) 138mg/dL (70-99) 125mg/dL (70-99) Test 06/28/16 02:06 06/28/16 03:03 06/28/16 04:02 06/28/16 05:09 Glucose (Fingerstick) 127mg/dL (70-99) 119mg/dL (70-99) 125mg/dL (70-99) 130mg/dL (70-99) Test 06/28/16 05:59 06/28/16 06:00 06/28/16 07:19 06/28/16 09:02 Glucose (Fingerstick) 129mg/dL (70-99) 137mg/dL (70-99) 132mg/dL (70-99) White Blood Count 9.9x10^3/uL (4.0-11.0) Red Blood Count 3.35x10^6/uL (4.30-5.70) Hemoglobin 9.7g/dL (13.0-17.5) Hematocrit 29.5% (39.0-53.0) Mean Corpuscular Volume 88fL (79-100) Mean Corpuscular Hemoglobin 29pg (25-35) Mean Corpuscular Hemoglobin Concent 33g/dL (31-37) Red Cell Distribution Width 14.7% (11.5-14.5) Platelet Count 119x10^3/uL (140-400) Neutrophils (%) (Auto) 82% (31-73) Lymphocytes (%) (Auto) 7% (24-48) Monocytes (%) (Auto) 11% (0-9) Eosinophils (%) (Auto) 0% (0-3) Basophils (%) (Auto) 0% (0-3) Neutrophils # (Auto) 8.0x10^3uL (1.8-7.7) Lymphocytes # (Auto) 0.7x10^3/uL (1.0-4.8) Monocytes # (Auto) 1.1x10^3/uL (0.0-1.1) Eosinophils # (Auto) 0.0x10^3/uL (0.0-0.7) Basophils # (Auto) 0.0x10^3/uL (0.0-0.2) Prothrombin Time 15.9SEC (11.7-14.0) Prothromb Time International Ratio 1.4 (0.8-1.1) Sodium Level 137mmol/L (136-145) Potassium Level 4.4mmol/L (3.5-5.1) Chloride Level 105mmol/L (98-107) Carbon Dioxide Level 22mmol/L (21-32) Anion Gap 10 (6-14) Blood Urea Nitrogen 19mg/dL (8-26) Creatinine 1.0mg/dL (0.7-1.3) Estimated GFR (Cockcroft-Gault) 77.0 Glucose Level 135mg/dL (70-99) Calcium Level 7.9mg/dL (8.5-10.1) Magnesium Level 2.1mg/dL (1.8-2.4) Creatine Kinase 611U/L (39-308) Test 06/28/16 10:09 06/28/16 11:37 06/28/16 13:12 06/28/16 14:26 Glucose (Fingerstick) 128mg/dL (70-99) 171mg/dL (70-99) 162mg/dL (70-99) 137mg/dL (70-99) Test 06/28/16 15:42 06/28/16 17:08 06/28/16 18:11 06/28/16 19:15 Glucose (Fingerstick) 126mg/dL (70-99) 107mg/dL (70-99) 168mg/dL (70-99) 171mg/dL (70-99) Test 06/28/16 20:26 06/28/16 21:29 06/28/16 23:01 06/29/16 01:08 Glucose (Fingerstick) 110mg/dL (70-99) 120mg/dL (70-99) 125mg/dL (70-99) 92mg/dL (70-99) Test 06/29/16 03:08 06/29/16 05:58 06/29/16 06:00 06/29/16 09:03 Glucose (Fingerstick) 105mg/dL (70-99) 95mg/dL (70-99) 135mg/dL (70-99) White Blood Count 10.2x10^3/uL (4.0-11.0) Red Blood Count 3.15x10^6/uL (4.30-5.70) Hemoglobin 9.2g/dL (13.0-17.5) Hematocrit 27.8% (39.0-53.0) Mean Corpuscular Volume 88fL (79-100) Mean Corpuscular Hemoglobin 29pg (25-35) Mean Corpuscular Hemoglobin Concent 33g/dL (31-37) Red Cell Distribution Width 15.0% (11.5-14.5) Platelet Count 123x10^3/uL (140-400) Neutrophils (%) (Auto) 80% (31-73) Lymphocytes (%) (Auto) 8% (24-48) Monocytes (%) (Auto) 11% (0-9) Eosinophils (%) (Auto) 1% (0-3) Basophils (%) (Auto) 1% (0-3) Neutrophils # (Auto) 8.1x10^3uL (1.8-7.7) Lymphocytes # (Auto) 0.8x10^3/uL (1.0-4.8) Monocytes # (Auto) 1.1x10^3/uL (0.0-1.1) Eosinophils # (Auto) 0.1x10^3/uL (0.0-0.7) Basophils # (Auto) 0.1x10^3/uL (0.0-0.2) Sodium Level 136mmol/L (136-145) Potassium Level 4.0mmol/L (3.5-5.1) Chloride Level 104mmol/L (98-107) Carbon Dioxide Level 26mmol/L (21-32) Anion Gap 6 (6-14) Blood Urea Nitrogen 28mg/dL (8-26) Creatinine 1.3mg/dL (0.7-1.3) Estimated GFR (Cockcroft-Gault) 56.9 Glucose Level 104mg/dL (70-99) Calcium Level 8.1mg/dL (8.5-10.1) Laboratory Tests Test 06/28/16 10:09 06/28/16 11:37 06/28/16 13:12 06/28/16 14:26 Glucose (Fingerstick) 128mg/dL (70-99) 171mg/dL (70-99) 162mg/dL (70-99) 137mg/dL (70-99) Test 06/28/16 15:42 06/28/16 17:08 06/28/16 18:11 06/28/16 19:15 Glucose (Fingerstick) 126mg/dL (70-99) 107mg/dL (70-99) 168mg/dL (70-99) 171mg/dL (70-99) Test 06/28/16 20:26 06/28/16 21:29 06/28/16 23:01 06/29/16 01:08 Glucose (Fingerstick) 110mg/dL (70-99) 120mg/dL (70-99) 125mg/dL (70-99) 92mg/dL (70-99) Test 06/29/16 03:08 06/29/16 05:58 06/29/16 06:00 06/29/16 09:03 Glucose (Fingerstick) 105mg/dL (70-99) 95mg/dL (70-99) 135mg/dL (70-99) White Blood Count 10.2x10^3/uL (4.0-11.0) Red Blood Count 3.15x10^6/uL (4.30-5.70) Hemoglobin 9.2g/dL (13.0-17.5) Hematocrit 27.8% (39.0-53.0) Mean Corpuscular Volume 88fL (79-100) Mean Corpuscular Hemoglobin 29pg (25-35) Mean Corpuscular Hemoglobin Concent 33g/dL (31-37) Red Cell Distribution Width 15.0% (11.5-14.5) Platelet Count 123x10^3/uL (140-400) Neutrophils (%) (Auto) 80% (31-73) Lymphocytes (%) (Auto) 8% (24-48) Monocytes (%) (Auto) 11% (0-9) Eosinophils (%) (Auto) 1% (0-3) Basophils (%) (Auto) 1% (0-3) Neutrophils # (Auto) 8.1x10^3uL (1.8-7.7) Lymphocytes # (Auto) 0.8x10^3/uL (1.0-4.8) Monocytes # (Auto) 1.1x10^3/uL (0.0-1.1) Eosinophils # (Auto) 0.1x10^3/uL (0.0-0.7) Basophils # (Auto) 0.1x10^3/uL (0.0-0.2) Sodium Level 136mmol/L (136-145) Potassium Level 4.0mmol/L (3.5-5.1) Chloride Level 104mmol/L (98-107) Carbon Dioxide Level 26mmol/L (21-32) Anion Gap 6 (6-14) Blood Urea Nitrogen 28mg/dL (8-26) Creatinine 1.3mg/dL (0.7-1.3) Estimated GFR (Cockcroft-Gault) 56.9 Glucose Level 104mg/dL (70-99) Calcium Level 8.1mg/dL (8.5-10.1) Medications Current Medications Heparin Sodium/ Dextrose 500 ml @ 0 mls/hr CONT PRN IV SEE I/O RECORD Last administered on 06/25/16 22:53; Start 06/25/16 at 00:00; Stop 06/27/16 at 00:00; Status DC Heparin Sodium (Porcine) 1850 unit 1,850 unit PRN Q6HRS PRN IV FOR UFH LEVEL LESS THAN 0.2 Last administered on 06/25/16 07:53; Start 06/25/16 at 00:00; Stop 06/27/16 at 00:00; Status DC Tirofiban/Sodium Chloride 250 ml @ 0 mls/hr CONT PRN IV PER PROTOCOL Last administered on 06/24/16 23:45; Start 06/24/16 at 23:45; Stop 06/26/16 at 08:32; Status DC Nitroglycerin/ Dextrose 250 ml @ 0 mls/hr CONT IV ; Start 06/25/16 at 00:00; Status UNV Sodium Chloride 1,000 ml @ 60 mls/hr [id number] IV Last administered on 06/26/16 22:57; Start 06/25/16 at 00:00; Stop 06/27/16 at 17:03; Status DC Nitroglycerin/ Dextrose (Nitroglycerin Drip) 250 ml @ 20 mls/hr CONT PRN IV SEE I/O RECORD Last administered on 06/25/16 00:28; Start 06/25/16 at 00:15; Stop 06/25/16 at 13:32; Status DC Info (Do NOT chart on this placeholder) 1 each 1X ONCE MC ; Start 06/25/16 at 02 :00; Stop 06/25/16 at 02:01; Status UNV Pneumococcal Polyvalent Vaccine (Do NOT chart on this placeholder) 1 each 1X ONCE MC ; Start 06/25/16 at 02:00; Stop 06/25/16 at 02:01; Status UNV Influenza Virus Vaccine Quadrival (Fluarix Quad [id number] Syringe) 0.5 ml ONCE ONCE VAX IM Last administered on 06/25/16 11:39; Start 06/25/16 at 09:00; Stop 06/25/16 at 09:01; Status DC Pneumococcal Polyvalent Vaccine (Pneumovax 23) 0.5 ml ONCE ONCE VAX IM Last administered on 06/25/16 11:35; Start 06/25/16 at 09:00; Stop 06/25/16 at 09:01; Status DC Ondansetron HCl (Zofran) 4 mg STK-MED ONCE .ROUTE ; Start 06/25/16 at 07:45; Stop 06/25/16 at 07:46; Status DC Ondansetron HCl (Zofran) 4 mg PRN Q6HRS PRN IV NAUSEA/VOMITING 1ST CHOICE Last administered on 06/25/16 08:03; Start 06/25/16 at 08:00; Stop 06/27/16 at 14:37; Status DC Famotidine (Pepcid) 20 mg BID PO Last administered on 06/26/16 21:33; Start 06/25/16 at 09:00; Stop 06/27/16 at 14:33; Status DC Fentanyl Citrate (Fentanyl 2ml Vial) 100 mcg STK-MED ONCE .ROUTE ; Start at 22:00; Stop 06/25/16 at 08:29; Status DC Heparin Sodium/ Sodium Chloride 2,000 unit STK-MED ONCE .ROUTE ; Start 06/24/16 at 22:00; Stop 06/25/16 at 08:29; Status DC Iodixanol (Visipaque 320) 200 ml STK-MED ONCE .ROUTE ; Start 06/24/16 at 22:00; Stop 06/25/16 at 08:29; Status DC Lidocaine HCl 20 ml STK-MED ONCE .ROUTE ; Start 06/24/16 at 22:00; Stop 06/25/16 at 08:29; Status DC Midazolam HCl (Versed) 2 mg STK-MED ONCE .ROUTE ; Start 06/24/16 at 22:00; Stop 06/25/16 at 08:29; Status DC Nitroglycerin/ Dextrose (Nitroglycerin Drip) 50 mg STK-MED ONCE IV ; Start at 22:00; Stop 06/25/16 at 08:29; Status DC Info (Anti-Coagulation Monitoring By Pharmacy) 1 each PRN DAILY PRN MC SEE COMMENTS Last administered on 06/26/16 08:35; Start 06/25/16 at 13:30; Stop 06/27 at 08:13; Status DC Aspirin (Ecotrin) 81 mg [id number] PO Last administered on 06/26/16 08:40; Start 06/25/16 at 14:00; Stop 06/27/16 at 14:30; Status DC Metoprolol Tartrate (Lopressor) 12.5 mg BID PO Last administered on 06/26/16 21 :34; Start 06/25/16 at 14:00; Stop 06/27/16 at 14:36; Status DC Acetaminophen (Tylenol) 500 mg PRN Q6HRS PRN PO MILD PAIN / TEMP Last administered on 06/25/16 15:15; Start 06/25/16 at 13:30; Stop 06/27/16 at 14:29; Status DC Atorvastatin Calcium (Lipitor) 40 mg QHS PO Last administered on 06/28/16 20: 42; Start 06/25/16 at 21:00 Acetaminophen (Tylenol) 325 mg PRN Q6HRS PRN PO MILD PAIN / TEMP; Start at 15:30; Stop 06/27/16 at 14:29; Status DC Acetaminophen/ Hydrocodone Bitart (Lortab 5/325) 1 tab PRN Q6HRS PRN PO MODERATE TO SEVERE PAIN; Start 06/25/16 at 15:30; Stop 06/27/16 at 14:34; Status DC Hydralazine HCl (Apresoline) 10 mg PRN Q4HRS PRN IVP ELEVATED BP, SEE COMMENTS ; Start 06/25/16 at 15:30 Ondansetron HCl (Zofran) 4 mg PRN Q8HRS PRN IV NAUSEA/VOMITING; Start 06/25/16 at 15:30; Stop 06/26/16 at 08:32; Status DC Albuterol Sulfate 2.5 mg 2.5 mg PRN Q4HRS PRN NEB SHORTNESS OF BREATH; Start at 15:30 Potassium Chloride 70 meq/ Sodium Bicarbonate 12.5 meq/Lidocaine HCl 24 ml/ Parenteral Electrolytes 571.5 ml @ 571.5 mls/ hr 1X PERIOP ONCE IRR ; Start at 06:00; Stop 06/27/16 at 06:59; Status DC Potassium Chloride 15 meq/ Sodium Bicarbonate 12.5 meq/Parenteral Electrolytes 520 ml @ 520 mls/hr 1X PERIOP ONCE IRR ; Start 06/27/16 at 06:00; Stop at 06:59; Status DC Heparin Sodium (Porcine) 67258 unit/Lactated Ringer's 1,020 ml @ 1,020 mls/hr 1X PERIOP ONCE IRR Last administered on 06/27/16 08:34; Start 06/27/16 at 06: 00; Stop 06/27/16 at 06:59; Status DC Cefazolin Sodium/ Sodium Chloride (Ancef/Iv Sodium Chloride 0.9% 500ml Bag) 500 ml @ 500 mls/hr 1X PERIOP ONCE IRR Last administered on 06/27/16 08:34; Start 06/27/16 at 06:00; Stop 06/27/16 at 06:59; Status DC Ondansetron HCl (Zofran) 4 mg PRN Q6HRS PRN IV Nausea; Start 06/27/16 at 07:00 ; Stop 06/27/16 at 15:00; Status DC Fentanyl Citrate (Fentanyl 2ml Vial) 25 mcg PRN Q5MIN PRN IV MILD PAIN; Start 06/27/16 at 07:00; Stop 06/27/16 at 15:00; Status DC Fentanyl Citrate (Fentanyl 2ml Vial) 50 mcg PRN Q5MIN PRN IV MODERATE PAIN; Start 06/27/16 at 07:00; Stop 06/27/16 at 15:00; Status DC Morphine Sulfate 1 mg 1 mg PRN Q10MIN PRN IV SEVERE PAIN; Start 06/27/16 at 07: 00; Stop 06/27/16 at 15:00; Status DC Lactated Ringer's (Iv Lactated Ringers) 1,000 ml @ 30 mls/hr Q24H IV Last administered on 06/27/16 07:14; Start 06/27/16 at 07:00; Stop 06/27/16 at 15:00 ; Status DC Lidocaine HCl 2 ml 1X PRN PRN ID IV START; Start 06/27/16 at 07:00; Stop at 15:00; Status DC Hydromorphone HCl (Dilaudid) 0.5 mg PRN Q10MIN PRN IV SEVERE PAIN, Second choice; Start 06/27/16 at 07:00; Stop 06/27/16 at 15:00; Status DC Prochlorperazine Edisylate (Compazine) 5 mg PACU PRN PRN IV NAUSEA; Start 06/27 at 07:00; Stop 06/27/16 at 23:00; Status DC Zolpidem Tartrate (Ambien) 5 mg 1X ONCE PO Last administered on 06/26/16 23:14 ; Start 06/26/16 at 23:15; Stop 06/26/16 at 23:16; Status DC Cellulose 1 each STK-MED ONCE .ROUTE Last administered on 06/27/16 08:34; Start 06/27/16 at 06:46; Stop 06/27/16 at 06:47; Status DC Papaverine HCl 60 mg STK-MED ONCE .ROUTE Last administered on 06/27/16 08:34; Start 06/27/16 at 06:46; Stop 06/27/16 at 06:47; Status DC Aspirin (Aspirin) 300 mg STK-MED ONCE .ROUTE Last administered on 06/27/16 13: 50; Start 06/27/16 at 06:46; Stop 06/27/16 at 06:47; Status DC Vancomycin HCl (Vanco) 10 gm 1X ONCE CEMENT Last administered on 06/27/16 08: 34; Start 06/27/16 at 07:30; Stop 06/27/16 at 07:31; Status DC Etomidate (Amidate) 20 mg STK-MED ONCE IV ; Start 06/27/16 at 06:55; Stop at 06:56; Status DC Phenylephrine HCl (Gustavo-Synephrine Inj) 10 mg STK-MED ONCE .ROUTE ; Start at 06:55; Stop 06/27/16 at 06:56; Status DC Aminocaproic Acid (Amicar) 5,000 mg STK-MED ONCE IV ; Start 06/27/16 at 06:55; Stop 06/27/16 at 06:56; Status DC Midazolam HCl (Versed) 2 mg STK-MED ONCE .ROUTE ; Start 06/27/16 at 06:55; Stop 06/27/16 at 06:56; Status DC Fentanyl Citrate (Fentanyl 2ml Vial) 100 mcg STK-MED ONCE .ROUTE ; Start at 06:55; Stop 06/27/16 at 06:56; Status DC Epinephrine HCl (Adrenalin) 1 mg STK-MED ONCE .ROUTE ; Start 06/27/16 at 06:56; Stop 06/27/16 at 06:57; Status DC Rocuronium Underwood (Zemuron) 100 mg STK-MED ONCE .ROUTE ; Start 06/27/16 at 06: 56; Stop 06/27/16 at 06:57; Status DC Ephedrine Sulfate 50 mg STK-MED ONCE IV ; Start 06/27/16 at 06:56; Stop at 06:57; Status DC Sufentanil Citrate (Sufenta) 100 mcg STK-MED ONCE .ROUTE ; Start 06/27/16 at 06: 56; Stop 06/27/16 at 06:57; Status DC Heparin Sodium (Porcine) 60089 unit 30,000 unit STK-MED ONCE .ROUTE ; Start 03/03 at 06:59; Stop 06/27/16 at 07:00; Status DC Nitroglycerin/ Dextrose 250 ml @ As Directed STK-MED ONCE IV ; Start 06/27/16 at 07:02; Stop 06/27/16 at 07:03; Status DC Cefazolin Sodium/ Dextrose (Ancef 2gm Premix) 50 ml @ As Directed STK-MED ONCE IV ; Start 06/27/16 at 07:04; Stop 06/27/16 at 07:05; Status DC Epinephrine HCl 1 mg STK-MED ONCE .ROUTE ; Start 06/27/16 at 07:13; Stop at 07:14; Status DC Heparin Sodium (Porcine) 30,000 unit STK-MED ONCE .ROUTE ; Start 06/27/16 at 07: 14; Stop 06/27/16 at 07:15; Status DC Sodium Chloride (Sodium Chloride) 50 ml STK-MED ONCE IJ Last administered on t 08:34; Start 06/27/16 at 07:25; Stop 06/27/16 at 07:26; Status DC Vancomycin HCl 10 gm 10 gm 1X ONCE CEMENT ; Start 06/27/16 at 07:45; Stop 06/27 at 07:46; Status DC Cefazolin Sodium/ Dextrose 50 ml @ 100 mls/hr 1X ONCE IV Last administered on 06/27/16t 08:15; Start 06/27/16 at 07:45; Stop 06/27/16 at 08:14; Status DC Mannitol (Mannitol Iv Soln) 500 ml @ 0 mls/hr 1X ONCE IV ; Start 06/27/16 at 08 :00; Stop 06/27/16 at 08:01; Status DC Midazolam HCl (Versed) 2 mg STK-MED ONCE .ROUTE ; Start 06/27/16 at 08:36; Stop 06/27/16 at 08:37; Status DC Rocuronium [place]wood (Zemuron) 100 mg STK-MED ONCE .ROUTE ; Start 06/27/16 at 08: 47; Stop 06/27/16 at 08:48; Status DC Dexamethasone Sodium Phosphate (Decadron) 20 mg STK-MED ONCE .ROUTE ; Start 03/03 at 09:03; Stop 06/27/16 at 09:04; Status DC Protamine Sulfate 250 mg STK-MED ONCE IV ; Start 06/27/16 at 11:22; Stop at 11:23; Status DC Rocuronium [place] 50 mg 50 mg STK-MED ONCE .ROUTE ; Start 06/27/16 at 11:30; Stop 06/27/16 at 11:31; Status DC Insulin Human Regular/Sodium Chloride (Novolin R Vial/ Iv Normal Saline 150ml) 151.5 ml @ 7.46 mls/hr CONT PRN IV SEE I/O RECORD; Start 06/27/16 at 12:15; Stop 06/27/16 at 14:35; Status DC Midazolam HCl (Versed) 2 mg STK-MED ONCE .ROUTE ; Start 06/27/16 at 12:11; Stop 06/27/16 at 12:12; Status DC Sodium Bicarbonate 50 meq STK-MED ONCE .ROUTE ; Start 06/27/16 at 12:31; Stop at 12:32; Status DC Protamine Sulfate 50 mg STK-MED ONCE IV ; Start 06/27/16 at 12:34; Stop at 12:35; Status DC Protamine Sulfate 50 mg 50 mg STK-MED ONCE IV ; Start 06/27/16 at 12:35; Stop at 12:36; Status DC Epinephrine HCl/ Sodium Chloride (Adrenalin/Iv Sodium Chloride 0.9% 250ml) 254 ml @ 3.81 mls/hr 1X ONCE IV ; Start 06/27/16 at 13:15; Stop 06/27/16 at 14:31 ; Status DC Lidocaine HCl (Xylocaine-Mpf 1% Vial) 5 ml STK-MED ONCE .ROUTE ; Start 06/27/16 at 13:04; Stop 06/27/16 at 13:05; Status DC Magnesium Sulfate 5 gm 5 gm STK-MED ONCE .ROUTE ; Start 06/27/16 at 13:04; Stop 06/27/16 at 13:05; Status DC Albumin Human (Albuminar) 200 ml @ As Directed STK-MED ONCE IV ; Start at 13:04; Stop 06/27/16 at 13:05; Status DC Sodium Bicarbonate 50 meq STK-MED ONCE .ROUTE ; Start 06/27/16 at 13:04; Stop at 13:05; Status DC Sodium Chloride 3 ml 3 ml PRN Q12HR PRN IV AFTER MEDS AND BLOOD DRAWS; Start at 13:00 Lactated Ringer's 1,000 ml @ 30 mls/hr Q24H IV Last administered on 06/28/16t 19:32; Start 06/27/16 at 12:50 Insulin Human Regular/Sodium Chloride (Novolin R Vial/ Iv Normal Saline 150ml) 151.5 ml @ 0 mls/hr CONT PRN PRN IV SEE I/O RECORD; Start 06/27/16 at 13:00 Dextrose 25 gm 25 gm PRN Q15MIN PRN IV LOW BLOOD SUGAR; Start 06/27/16 at 13:00 Nitroglycerin/ Dextrose 250 ml @ 0 mls/hr CONT PRN PRN IV SEE I/O RECORD; Start 06/27/16 at 13:00 Dopamine HCl/ Dextrose 250 ml @ 0 mls/hr CONT PRN PRN IV SEE I/O RECORD; Start 06/27/16 at 13:00 Dobutamine HCl/ Dextrose 250 ml @ 0 mls/hr CONT PRN PRN IV SEE I/O RECORD; Start 06/27/16 at 13:00 Phenylephrine HCl 20 mg/Sodium Chloride 252 ml @ 0 mls/hr CONT PRN PRN IV HYPOTENSION; Start 06/27/16 at 13:00; Stop 06/28/16 at 20:15; Status DC Epinephrine HCl 4 mg/Sodium Chloride 254 ml @ 0 mls/hr CONT PRN PRN IV POST CV SURGERY; Start 06/27/16 at 13:00 Amiodarone HCl 150 mg/Dextrose 103 ml @ 200 mls/hr 1X PRN PRN IV FOR RUNS OF VT; Start 06/27/16 at 13:00; Stop 06/27/16 at 13:13; Status DC Amiodarone HCl 900 mg/Dextrose 518 ml @ 33.33 mls/ hr CONT PRN PRN IV RUNS OF VT; Start 06/27/16 at 13:00; Stop 06/27/16 at 13:13; Status DC Amiodarone HCl 150 mg/Dextrose 103 ml @ 200 mls/hr 1X PRN PRN IV VT Last administered on 06/27/16 15:47; Start 06/27/16 at 13:00 Amiodarone HCl/ Dextrose (Cordarone) 518 ml @ 33.33 mls/ hr CONT PRN PRN IV SEE COMMENTS Last administered on 06/27/16 15:49; Start 06/27/16 at 13:00 Info 1 ea CONT PRN PRN MC SEE COMMENTS; Start 06/27/16 at 13:00 Info 1 ea 1 ea CONT PRN PRN MC SEE COMMENTS; Start 06/27/16 at 13:00 Magnesium Sulfate/ Dextrose (Magnesium Sulfate PREMIX 1GM) 100 ml @ 100 mls/hr PRN DAILY PRN IV FOR MAG < 2.2; Start 06/27/16 at 13:00 Famotidine (Pepcid) 20 mg BID IVP ; Start 06/27/16 at 21:00; Stop 06/27/16 at 21 :00; Status DC Ondansetron HCl (Zofran) 4 mg PRN Q4HRS PRN IV NAUSEA/VOMITING Last administered on 06/28/16 13:15; Start 06/27/16 at 13:00 Morphine Sulfate 2 mg PRN Q1HR PRN IV PAIN Last administered on 06/27/16 23:14 ; Start 06/27/16 at 13:00 Acetaminophen (Tylenol) 650 mg PRN Q4HRS PRN PO MILD PAIN / TEMP; Start at 13:00 Acetaminophen (Tylenol) 650 mg PRN Q4HRS PRN MO MILD PAIN / TEMP; Start at 13:00 Meperidine HCl 12.5 mg 12.5 mg PRN Q15MIN PRN IV SHIVERING; Start 06/27/16 at 13:00; Stop 06/28/16 at 13:00; Status DC Propofol (Diprivan) 100 ml @ 0 mls/hr CONT PRN PRN IV POSTOP SEDATION UNTIL EXTUBATE; Start 06/27/16 at 13:00 Senna/Docusate Sodium (Senna Plus) 1 tab BID PO Last administered on 06/29/16 08:44; Start 06/27/16 at 21:00 Bisacodyl (Dulcolax Supp) 10 mg PRN DAILY PRN MO NO BOWEL MOVEMENT; Start 06/27 at 13:00 Aspirin (Ecotrin) 325 mg DAILYWBKFT PO Last administered on 06/29/16 08:44; Start 06/28/16 at 08:00 Aspirin (Aspirin) 300 mg PRN DAILY PRN MO IF UNABLE TO TAKE PO; Start 06/27/16 at 13:00 Metoprolol Tartrate 25 mg 25 mg BID PO Last administered on 06/28/16 10:28; Start 06/28/16 at 09:00 Clevidipine (Cleviprex) 100 ml @ 0 mls/hr CONT PRN IV PER PROTOCOL; Start 06/27 at 13:00 Acetaminophen/ Hydrocodone Bitart (Lortab 5/325) 1 tab PRN Q4HRS PRN PO MILD PAIN Last administered on 06/29/16 09:47; Start 06/27/16 at 13:00 Acetaminophen/ Hydrocodone Bitart 2 tab 2 tab PRN Q4HRS PRN PO MODERATE PAIN, SEVERE PAIN Last administered on 06/28/16 17:17; Start 06/27/16 at 13:00 Cefazolin Sodium/ Sodium Chloride (Ancef/Iv Sodium Chloride 0.9% 50ml) 50 ml @ 100 mls/hr Q8H IV ; Start 06/27/16 at 16:00; Stop 06/27/16 at 16:00; Status DC Hydromorphone HCl (Dilaudid) 0.2 mg PRN Q1HR PRN IVP PAIN Last administered on 06/29/16 09:23; Start 06/27/16 at 13:00 Hydromorphone HCl (Dilaudid) 0.4 mg PRN Q1HR PRN IVP PAIN; Start 06/27/16 at 13 :00 Midazolam HCl 2 mg 2 mg STK-MED ONCE .ROUTE ; Start 06/27/16 at 13:47; Stop 03/03 at 13:48; Status DC Albumin Human 250 ml @ 62.5 mls/hr 1X ONCE IV Last administered on 06/27/16 15:28; Start 06/27/16 at 15:00; Stop 06/27/16 at 18:59; Status DC Cefazolin Sodium 1 gm/Sodium Chloride 50 ml @ 100 mls/hr Q8H IV Last administered on 06/29/16 03:15; Start 06/27/16 at 19:00; Stop 06/29/16 at 03:29 ; Status DC Potassium Chloride 50 ml @ 0 mls/hr Q1H IV Last administered on 06/27/16 18:05 ; Start 06/27/16 at 15:15; Stop 06/27/16 at 18:16; Status DC Calcium Chloride 1000 mg/Sodium Chloride 60 ml @ 120 mls/hr 1X ONCE IV ; Start 06/27/16 at 15:15; Stop 06/27/16 at 15:44; Status Cancel Amiodarone HCl 150 mg/Dextrose 103 ml @ 200 mls/hr 1X PRN PRN IV [place]; Start 03/03 at 15:30; Stop 06/27/16 at 15:30; Status DC Amiodarone HCl 150 mg/Dextrose 103 ml @ 200 mls/hr 1X ONCE IV Last administered on 06/27/16 15:30; Start 06/27/16 at 15:30; Stop 06/27/16 at 16:00 ; Status DC Calcium Gluconate/ Sodium Chloride (Iv Sodium Chloride 0.9% 100ml) 110 ml @ 220 mls/hr 1X ONCE IV Last administered on 06/27/16 15:49; Start 06/27/16 at 15:30; Stop 06/27/16 at 15:59; Status DC Famotidine (Pepcid) 20 mg BID PO Last administered on 06/29/16 08:45; Start at 21:00 Furosemide (Lasix) 40 mg Q12H IVP Last administered on 06/28/16 07:01; Start 06/28/16 at 07:00; Stop 06/28/16 at 15:21; Status DC Ketorolac Tromethamine 30 mg 30 mg PRN Q6HRS PRN IV PAIN Last administered on 11:06; Start 06/28/16 at 10:45; Stop 06/28/16 at 15:21; Status DC Albumin Human (Plasmanate) 500 ml @ 125 mls/hr 1X ONCE IV Last administered on 06/28/16 13:45; Start 06/28/16 at 13:45; Stop 06/28/16 at 17:44; Status DC Prochlorperazine Edisylate (Compazine) 10 mg PRN Q6HRS PRN IV NAUSEA/VOMITING; Start 06/28/16 at 14:45 Prochlorperazine Edisylate 10 mg 10 mg 1X STAT IV Last administered on 14:53; Start 06/28/16 at 14:34; Stop 06/28/16 at 14:38; Status DC Phenylephrine HCl/ Sodium Chloride (Gustavo-Synephrine Inj/Iv Sodium Chloride 0.9% 250ml) 252 ml @ 0 mls/hr CONT PRN IV SEE I/O RECORD Last administered on 22:19; Start 06/28/16 at 14:45 Furosemide (Lasix) 20 mg Q12H IVP ; Start 06/28/16 at 19:00 Ketorolac Tromethamine (Toradol) 15 mg PRN Q6HRS PRN IV PAIN Last administered on 06/28/16 17:14; Start 06/28/16 at 15:30; Stop 06/29/16 at 18:00 Amiodarone HCl (Cordarone) 200 mg BID PO Last administered on 06/29/16 08:45; Start 06/28/16 at 21:00 Simethicone (Gas-X) 160 mg PRN AFTMEALHC PO ; Start 06/28/16 at 18:00 Furosemide (Lasix) 20 mg 1X ONCE IVP Last administered on 06/28/16 23:18; Start 06/28/16 at 23:15; Stop 06/28/16 at 23:16; Status DC Active Scripts Active Reported Niaspan (Niacin) 500 Mg Tab.er.24h 1 Tab PO DAILY Excedrin Migraine Caplet (Aspirin/Acetaminophen/Caffeine) 1 Each Tablet 1 Each PO PRN DAILY PRN Vitals/I & O Vital Sign - Last 24 Hours 06/28/16 06/28/16 06/28/16 06/28/16 10:00 10:28 10:33 11:00 Temp 97.5 97.5 Pulse 85 Resp 16 B/P 115/77 115/77 100/70 Pulse Ox 95 O2 Delivery Nasal Cannula O2 Flow Rate 1.0 06/28/16 06/28/16 06/28/16 2/11/17 12:00 12:00 13:00 14:00 B/P 90/59 86/58 79/58 O2 Delivery Nasal Cannula O2 Flow Rate 4.0 06/28/16 06/28/16 06/28/16 06/28/16 15:00 15:26 16:00 16:00 Temp 98.1 98.1 Resp 21 B/P 96/66 95/62 Pulse Ox 94 O2 Delivery Nasal Cannula Nasal Cannula O2 Flow Rate 1.0 4.0 06/28/16 06/28/16 06/28/16 06/28/16 17:00 17:17 18:00 18:17 Resp 17 16 B/P 101/67 84/69 Pulse Ox 97 98 O2 Delivery Nasal Cannula Nasal Cannula O2 Flow Rate 1.0 2.0 06/28/16 06/28/16 06/28/16 06/28/16 18:37 19:00 20:00 20:42 Temp 97.8 97.8 Pulse 72 70 73 Resp 20 12 B/P 120/74 118/76 94/63 Pulse Ox 98 96 96 O2 Delivery Room Air Nasal Cannula Nasal Cannula O2 Flow Rate 2.0 6.0 06/28/16 06/28/16 06/28/16 06/28/16 20:52 21:00 22:00 23:00 Pulse 74 76 75 Resp 04 02 11 B/P 97/68 93/69 102/72 Pulse Ox 93 93 100 O2 Delivery Nasal Cannula Nasal Cannula Nasal Cannula Nasal Cannula O2 Flow Rate 6.0 6.0 6.0 6.0 06/29/16 06/29/16 06/29/16 06/29/16 00:00 00:00 00:18 01:00 Temp 98.1 98.1 Pulse 78 78 Resp 19 B/P 101/66 109/67 Pulse Ox 100 96 100 O2 Delivery Nasal Cannula Nasal Cannula Nasal Cannula Nasal Cannula O2 Flow Rate 6.0 6.0 6.0 6.0 06/29/16 06/29/16 06/29/16 06/29/16 02:00 03:00 04:00 04:00 Pulse 78 78 79 Resp 30 04 12 B/P 98/72 128/60 99/64 Pulse Ox 100 96 97 O2 Delivery Nasal Cannula Nasal Cannula Nasal Cannula Nasal Cannula O2 Flow Rate 6.0 6.0 6.0 6.0 06/29/16 06/29/16 06/29/16 06/29/16 04:46 05:00 05:46 06:00 Temp 98.1 98.1 Pulse 80 81 Resp 18 14 12 10 B/P 103/73 91/71 Pulse Ox 100 96 97 100 O2 Delivery Nasal Cannula Nasal Cannula Nasal Cannula Nasal Cannula O2 Flow Rate 6.0 6.0 6.0 6.0 06/29/16 06/29/16 06/29/16 06/29/16 08:15 08:45 08:45 09:23 Pulse 87 Resp 30 16 16 B/P 113/80 Pulse Ox 98 98 98 O2 Delivery Nasal Cannula Nasal Cannula Nasal Cannula O2 Flow Rate 2.0 2.0 2.0 06/29/16 09:47 Resp 16 Pulse Ox 98 O2 Delivery Nasal Cannula O2 Flow Rate 2.0 Intake and Output 06/28/16 06/28/16 06/29/16 15:00 23:00 07:00 Intake Total 411 ml Output Total 1600 ml 680 ml 635 ml Balance -1600 ml -680 ml -224 ml LA GUERRERO MD Jun 29, 2016 10:01
[2016-06-29] MEDS ORDERED: DEXTROSE 50% 25 GM / 50ML DISP.SYRIN. IV PRN (12:30)
[2016-06-29] MEDS: IV RINGERS,LACTATED 1000ML 1,000 ML IV SCH (12:50)
--- NOTE | 2016-06-29 15:39 | PDOC ---
Progress Note Subjective Subjective Doing very well. On RA. Normal sinus rhythm. Minimal drain output. Small dose neosynephrine. Excellent UO, creatinine 1.3 ROS ROS No nausea No vomiting No pain No rash Vital Sign Vital Signs Vital Signs Date Time Temp Pulse Resp B/P Pulse Ox O2 Delivery O2 Flow Rate FiO2 06/29/16 12:00 91 22 98/66 95 06/29/16 11:00 98.0 Room Air 98.0 06/29/16 09:47 2.0 Labs Lab Laboratory Tests Test 06/28/16 15:42 06/28/16 17:08 06/28/16 18:11 06/28/16 19:15 Glucose (Fingerstick) 126mg/dL (70-99) 107mg/dL (70-99) 168mg/dL (70-99) 171mg/dL (70-99) Test 06/28/16 20:26 06/28/16 21:29 06/28/16 23:01 06/29/16 01:08 Glucose (Fingerstick) 110mg/dL (70-99) 120mg/dL (70-99) 125mg/dL (70-99) 92mg/dL (70-99) Test 06/29/16 03:08 06/29/16 05:58 06/29/16 06:00 06/29/16 09:03 Glucose (Fingerstick) 105mg/dL (70-99) 95mg/dL (70-99) 135mg/dL (70-99) White Blood Count 10.2x10^3/uL (4.0-11.0) Red Blood Count 3.15x10^6/uL (4.30-5.70) Hemoglobin 9.2g/dL (13.0-17.5) Hematocrit 27.8% (39.0-53.0) Mean Corpuscular Volume 88fL (79-100) Mean Corpuscular Hemoglobin 29pg (25-35) Mean Corpuscular Hemoglobin Concent 33g/dL (31-37) Red Cell Distribution Width 15.0% (11.5-14.5) Platelet Count 123x10^3/uL (140-400) Neutrophils (%) (Auto) 80% (31-73) Lymphocytes (%) (Auto) 8% (24-48) Monocytes (%) (Auto) 11% (0-9) Eosinophils (%) (Auto) 1% (0-3) Basophils (%) (Auto) 1% (0-3) Neutrophils # (Auto) 8.1x10^3uL (1.8-7.7) Lymphocytes # (Auto) 0.8x10^3/uL (1.0-4.8) Monocytes # (Auto) 1.1x10^3/uL (0.0-1.1) Eosinophils # (Auto) 0.1x10^3/uL (0.0-0.7) Basophils # (Auto) 0.1x10^3/uL (0.0-0.2) Sodium Level 136mmol/L (136-145) Potassium Level 4.0mmol/L (3.5-5.1) Chloride Level 104mmol/L (98-107) Carbon Dioxide Level 26mmol/L (21-32) Anion Gap 6 (6-14) Blood Urea Nitrogen 28mg/dL (8-26) Creatinine 1.3mg/dL (0.7-1.3) Estimated GFR (Cockcroft-Gault) 56.9 Glucose Level 104mg/dL (70-99) Calcium Level 8.1mg/dL (8.5-10.1) Test 06/29/16 12:05 Glucose (Fingerstick) 124mg/dL (70-99) Objective Assessment POD#2, s/p CABG x 3 (SVG to LAD, SVG to OM2, SVG to distal RCA), doing very well. Small dose alek. NSR, on room air. Plan Plan of Care DC pleural tube Stop alek D/c cordis Reduce Amiodarone to 200mg daily for A. fib prophylaxis Reduce metoprolol to 12.5mg BID Stop Lasix Stop TorJESS Aanya MD Jun 29, 2016 15:39
[2016-06-29] MEDS: PHENYLEPHRINE INJ 20 MG in IV NORMAL SALINE 250ML 250 ML IV PRN (16:02)
--- NOTE | 2016-06-29 16:31 | RAD ---
Single view chest History:s/p removal of left pleural tube An AP view of the chest is submitted. Comparison: Exam earlier the same day. Findings: Left chest tube has been removed, now very small left apical pneumothorax. There again has been a median sternotomy. There is remaining right internal jugular vascular sheath. There is again bibasilar airspace opacity and small right pleural effusion. Heart size is similar. Impression: 1. Left chest tube has been removed, now small left pneumothorax near the apex. 2. There is again bibasilar airspace opacity, likely atelectasis, also small right pleural effusion. Critical results were called to Edis the patient's nurse 06/29/2016 at 1628.
[2016-06-29] MEDS: INSULIN ASPART 300 UNITS/3 ML INSULN.PEN SQ SCH (18:42)
[2016-06-29] MEDS: ATORVASTATIN CALCIUM 40 MG TABLET. PO SCH (20:26)
[2016-06-29] MEDS: METOPROLOL TART IMMED RELEASE 25 MG TABLET PO SCH (21:00)
[2016-06-30] VITALS (16 sets, daily range): BP systolic 85–144; BP diastolic 57–81
[2016-06-30 06:48] LABS: CALCIUM 8.1 mg/dL (8.5-10.1); CREATININE 0.9 mg/dL (0.7-1.3); POTASSIUM 3.9 mmol/L (3.5-5.1)
[2016-06-30] MEDS: HYDROCODONE/APAP 5/325MG TABLET. PO PRN ×3 (07:15→21:07)
[2016-06-30 07:17] LABS: BASO % 1 % (0-3); EOS % 2 % (0-3); HEMATOCRIT 28.5 % (39.0-53.0); HEMOGLOBIN 9.5 g/dL (13.0-17.5); LYMPH # 0.6 x10^3/uL (1.0-4.8); LYMPH % 8 % (24-48); MEAN CORPUSCULAR HEMOGLOBIN 29 pg (25-35); MEAN CORPUSCULAR HGB CONC 33 g/dL (31-37); MEAN CORPUSCULAR VOLUME 88 fL (79-100); MONO % 11 % (0-9); NEUT % 79 % (31-73); PLATELET COUNT 121 x10^3/uL (140-400); RED BLOOD COUNT 3.24 x10^6/uL (4.30-5.70); RED CELL DISTRIBUTION WIDTH 14.4 % (11.5-14.5); WHITE BLOOD COUNT 7.1 x10^3/uL (4.0-11.0)
[2016-06-30] MEDS: INSULIN ASPART 300 UNITS/3 ML INSULN.PEN SQ SCH ×2 (07:44→11:16)
[2016-06-30] MEDS: POTASSIUM CHLORIDE 20MEQ 50 ML IV SCH ×2 (08:08→09:16)
--- NOTE | 2016-06-30 08:26 | RAD ---
Single view chest History:Shortness of air, postop An AP view of the chest is submitted. Comparison: 06/27/2016. Findings: There are low lung volumes, poor inspiration. There are again 2 left chest tubes and mediastinal drain. There is again right internal jugular venous catheter with tip in superior vena cava. Previously seen endotracheal tube has been removed, also removal of previously seen enteric catheter. There is some gaseous distention of stomach. No pneumothorax is identified. Medial right base airspace opacity is similar greater, also likely atelectasis left lung base somewhat greater. Pericardial cardiac silhouette is unchanged. There may be small left pleural effusion. Impression: Previously seen enteric catheter and endotracheal tube have been removed, remaining left chest tubes and mediastinal drain and right internal jugular venous catheter. There is suboptimal inspiration. There is increased right base opacity which may be due to atelectasis although infiltrate not excluded, also increased likely atelectasis left lung base. There may be small left pleural effusion. There is some gaseous distention of stomach.
[2016-06-30] MEDS ORDERED: AMIODARONE HCL 200 MG TABLET PO SCH (09:00)
[2016-06-30] MEDS: METOPROLOL TART IMMED RELEASE 25 MG TABLET PO SCH ×2 (09:13→21:08)
[2016-06-30] MEDS: SENNOSIDES/DOCUSATE 8.6/50MG TABLET. PO SCH ×2 (09:14→21:07)
[2016-06-30] MEDS: FAMOTIDINE 20 MG TABLET. PO SCH ×2 (09:14→21:07)
[2016-06-30] MEDS: AMIODARONE HCL 200 MG TABLET PO SCH (09:14)
[2016-06-30] MEDS: ASPIRIN ENTERIC COATED 325 MG TABLET.DR. PO SCH (09:14)
--- NOTE | 2016-06-30 09:28 | RAD ---
INDICATION: POST OP, chest pain COMPARISON: 06/29/2016 FINDINGS: Single view of chest obtained. Poststernotomy changes. Right-sided central venous catheter is identified with sharp angulation at apex. Patchy opacities in the bilateral lower lungs. IMPRESSION: Patchy opacities in bilateral lower lungs. Could be from foci of atelectasis although some component of pleural fluid is also possible. Cannot exclude infectious etiology. Right-sided central venous catheter is seen with sharp angulation at neck base. Would correlate with function to ensure there is not a kink. The patient's small left apical pneumothorax is again seen.
--- NOTE | 2016-06-30 10:32 | PDOC ---
MURRAY ANN COUNTER TENDER 06/30/16 1032: CARDIO Progress Notes Date and Time Date of Service 06/30/2016 Time of Evaluation 1000 Subjective Subjective: No Chest Pain, No shortness of breath, No Palpitations, No Dizziness, Other (Surgical pain controlled) Vitals Vitals Vital Signs Date Time Temp Pulse Resp B/P Pulse Ox O2 Delivery O2 Flow Rate FiO2 06/30/16 10:00 97 18 96 Room Air 06/30/16 07:00 98.6 98.6 06/30/16 06:00 3.0 Weight Weight [ ] Input and Output Intake and Output Intake and Output 06/30/16 07:00 Intake Total 2399.6 ml Output Total 1930 ml Balance 469.6 ml Intake Oral 1170 ml IV Total 383.6 ml Other 846 ml Output Urine Total 1730 ml Chest Tube Drainage Total 200 ml Laboratory Labs Laboratory Tests Test 06/29/16 12:05 06/29/16 18:37 06/30/16 06:00 Glucose (Fingerstick) 124mg/dL (70-99) 170mg/dL (70-99) White Blood Count 7.1x10^3/uL (4.0-11.0) Red Blood Count 3.24x10^6/uL (4.30-5.70) Hemoglobin 9.5g/dL (13.0-17.5) Hematocrit 28.5% (39.0-53.0) Mean Corpuscular Volume 88fL (79-100) Mean Corpuscular Hemoglobin 29pg (25-35) Mean Corpuscular Hemoglobin Concent 33g/dL (31-37) Red Cell Distribution Width 14.4% (11.5-14.5) Platelet Count 121x10^3/uL (140-400) Neutrophils (%) (Auto) 79% (31-73) Lymphocytes (%) (Auto) 8% (24-48) Monocytes (%) (Auto) 11% (0-9) Eosinophils (%) (Auto) 2% (0-3) Basophils (%) (Auto) 1% (0-3) Neutrophils # (Auto) 5.6x10^3uL (1.8-7.7) Lymphocytes # (Auto) 0.6x10^3/uL (1.0-4.8) Monocytes # (Auto) 0.8x10^3/uL (0.0-1.1) Eosinophils # (Auto) 0.1x10^3/uL (0.0-0.7) Basophils # (Auto) 0.0x10^3/uL (0.0-0.2) Sodium Level 139mmol/L (136-145) Potassium Level 3.9mmol/L (3.5-5.1) Chloride Level 104mmol/L (98-107) Carbon Dioxide Level 27mmol/L (21-32) Anion Gap 8 (6-14) Blood Urea Nitrogen 22mg/dL (8-26) Creatinine 0.9mg/dL (0.7-1.3) Estimated GFR (Cockcroft-Gault) 87.0 Glucose Level 100mg/dL (70-99) Calcium Level 8.1mg/dL (8.5-10.1) Physical Exam HEENT: Neck Supple W Full Motion Chest: Symmetric LUNGS: Other (bibasilar crackles) Heart: S1S2, RRR (no significant rhythm ectopies overnight. ) Abdomen: Soft N/T Extremities: No Calf Tenderness, Other (1+ bilateral LE pitting edema) Neurology: alert, oriented, follow commands Other Exams chest surgical incision D/I well approximated. Assessment Assessment 1. STEMI with 3VD: stable 2. S/P CABG: POD#3, doing well 3. Postoperative anemia: stable Hgb at 9.5 Recommendation 1. Continue post CABG treatment protocol 2. HR baseline 90s, BP adequate, will increase metoprolol. 3. Continue rehab DELILAH GUALLPA MD 06/30/16 1508: CARDIO Progress Notes Assessment Assessment Patient seen and examined. Agree with CAREER GUIDANCE TECHNICIAN's assessment and plan. s/p CABG, progressing well. Telemetry did not show any significant arrhythmias. Continue PT/OT. MURRAY ANN APRN Jun 30, 2016 10:32 DELILAH GUALLPA MD Jun 30, 2016 15:08
--- NOTE | 2016-06-30 12:35 | PDOC ---
PROGRESS NOTES Chief Complaint Chief Complaint A/P 1. ST elevation MO, anterior wall 2. 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 3. Severe cardiomyopathy, ischemic 4. anemia, expected post sx Plan s/p CABG POD 3 iv amadinone , changed to PO low dose beta lanre metoprol Phenylephedrine off monitor electrolytes Monitor platelets Mediastinal tube removed, chest tube removed Pain control with iv Dilaudid, prn Toradol CVTS/cardiology following incentive spirometry History of Present Illness History of Present Illness No chest pain no fever no chills Vitals Vitals Vital Signs Date Time Temp Pulse Resp B/P Pulse Ox O2 Delivery O2 Flow Rate FiO2 06/30/16 12:22 Room Air 06/30/16 12:10 96 06/30/16 11:55 98.1 92 12 100/70 98.1 06/30/16 06:00 3.0 Physical Exam Physical Exam clean chest wound General: Alert, Oriented X3, Cooperative, No acute distress Heart: Regular rate, Normal S1, Normal S2, No murmurs Lungs: Clear Abdomen: Normal bowel sounds, Soft, No tenderness Extremities: No edema Skin: No significant lesion Labs LABS Laboratory Tests Test 06/29/16 18:37 06/30/16 06:00 06/30/16 11:09 Glucose (Fingerstick) 170mg/dL (70-99) 97mg/dL (70-99) White Blood Count 7.1x10^3/uL (4.0-11.0) Red Blood Count 3.24x10^6/uL (4.30-5.70) Hemoglobin 9.5g/dL (13.0-17.5) Hematocrit 28.5% (39.0-53.0) Mean Corpuscular Volume 88fL (79-100) Mean Corpuscular Hemoglobin 29pg (25-35) Mean Corpuscular Hemoglobin Concent 33g/dL (31-37) Red Cell Distribution Width 14.4% (11.5-14.5) Platelet Count 121x10^3/uL (140-400) Neutrophils (%) (Auto) 79% (31-73) Lymphocytes (%) (Auto) 8% (24-48) Monocytes (%) (Auto) 11% (0-9) Eosinophils (%) (Auto) 2% (0-3) Basophils (%) (Auto) 1% (0-3) Neutrophils # (Auto) 5.6x10^3uL (1.8-7.7) Lymphocytes # (Auto) 0.6x10^3/uL (1.0-4.8) Monocytes # (Auto) 0.8x10^3/uL (0.0-1.1) Eosinophils # (Auto) 0.1x10^3/uL (0.0-0.7) Basophils # (Auto) 0.0x10^3/uL (0.0-0.2) Sodium Level 139mmol/L (136-145) Potassium Level 3.9mmol/L (3.5-5.1) Chloride Level 104mmol/L (98-107) Carbon Dioxide Level 27mmol/L (21-32) Anion Gap 8 (6-14) Blood Urea Nitrogen 22mg/dL (8-26) Creatinine 0.9mg/dL (0.7-1.3) Estimated GFR (Cockcroft-Gault) 87.0 Glucose Level 100mg/dL (70-99) Calcium Level 8.1mg/dL (8.5-10.1) Review of Systems Review of Systems no fever, chills, sob or chest pain Assessment and Plan Assessmemt and Plan Problems Medical Problems: (1) CAD (coronary artery disease) Status: Acute Problems: Comment Review of Relevant I have reviewed the following items fco (where applicable) has been applied. Labs Laboratory Tests Test 06/28/16 13:12 06/28/16 14:26 06/28/16 15:42 06/28/16 17:08 Glucose (Fingerstick) 162mg/dL (70-99) 137mg/dL (70-99) 126mg/dL (70-99) 107mg/dL (70-99) Test 06/28/16 18:11 06/28/16 19:15 06/28/16 20:26 06/28/16 21:29 Glucose (Fingerstick) 168mg/dL (70-99) 171mg/dL (70-99) 110mg/dL (70-99) 120mg/dL (70-99) Test 06/28/16 23:01 06/29/16 01:08 06/29/16 03:08 06/29/16 05:58 Glucose (Fingerstick) 125mg/dL (70-99) 92mg/dL (70-99) 105mg/dL (70-99) 95mg/dL (70-99) Test 06/29/16 06:00 06/29/16 09:03 06/29/16 12:05 06/29/16 18:37 White Blood Count 10.2x10^3/uL (4.0-11.0) Red Blood Count 3.15x10^6/uL (4.30-5.70) Hemoglobin 9.2g/dL (13.0-17.5) Hematocrit 27.8% (39.0-53.0) Mean Corpuscular Volume 88fL (79-100) Mean Corpuscular Hemoglobin 29pg (25-35) Mean Corpuscular Hemoglobin Concent 33g/dL (31-37) Red Cell Distribution Width 15.0% (11.5-14.5) Platelet Count 123x10^3/uL (140-400) Neutrophils (%) (Auto) 80% (31-73) Lymphocytes (%) (Auto) 8% (24-48) Monocytes (%) (Auto) 11% (0-9) Eosinophils (%) (Auto) 1% (0-3) Basophils (%) (Auto) 1% (0-3) Neutrophils # (Auto) 8.1x10^3uL (1.8-7.7) Lymphocytes # (Auto) 0.8x10^3/uL (1.0-4.8) Monocytes # (Auto) 1.1x10^3/uL (0.0-1.1) Eosinophils # (Auto) 0.1x10^3/uL (0.0-0.7) Basophils # (Auto) 0.1x10^3/uL (0.0-0.2) Sodium Level 136mmol/L (136-145) Potassium Level 4.0mmol/L (3.5-5.1) Chloride Level 104mmol/L (98-107) Carbon Dioxide Level 26mmol/L (21-32) Anion Gap 6 (6-14) Blood Urea Nitrogen 28mg/dL (8-26) Creatinine 1.3mg/dL (0.7-1.3) Estimated GFR (Cockcroft-Gault) 56.9 Glucose Level 104mg/dL (70-99) Calcium Level 8.1mg/dL (8.5-10.1) Glucose (Fingerstick) 135mg/dL (70-99) 124mg/dL (70-99) 170mg/dL (70-99) Test 06/30/16 06:00 06/30/16 11:09 White Blood Count 7.1x10^3/uL (4.0-11.0) Red Blood Count 3.24x10^6/uL (4.30-5.70) Hemoglobin 9.5g/dL (13.0-17.5) Hematocrit 28.5% (39.0-53.0) Mean Corpuscular Volume 88fL (79-100) Mean Corpuscular Hemoglobin 29pg (25-35) Mean Corpuscular Hemoglobin Concent 33g/dL (31-37) Red Cell Distribution Width 14.4% (11.5-14.5) Platelet Count 121x10^3/uL (140-400) Neutrophils (%) (Auto) 79% (31-73) Lymphocytes (%) (Auto) 8% (24-48) Monocytes (%) (Auto) 11% (0-9) Eosinophils (%) (Auto) 2% (0-3) Basophils (%) (Auto) 1% (0-3) Neutrophils # (Auto) 5.6x10^3uL (1.8-7.7) Lymphocytes # (Auto) 0.6x10^3/uL (1.0-4.8) Monocytes # (Auto) 0.8x10^3/uL (0.0-1.1) Eosinophils # (Auto) 0.1x10^3/uL (0.0-0.7) Basophils # (Auto) 0.0x10^3/uL (0.0-0.2) Sodium Level 139mmol/L (136-145) Potassium Level 3.9mmol/L (3.5-5.1) Chloride Level 104mmol/L (98-107) Carbon Dioxide Level 27mmol/L (21-32) Anion Gap 8 (6-14) Blood Urea Nitrogen 22mg/dL (8-26) Creatinine 0.9mg/dL (0.7-1.3) Estimated GFR (Cockcroft-Gault) 87.0 Glucose Level 100mg/dL (70-99) Calcium Level 8.1mg/dL (8.5-10.1) Glucose (Fingerstick) 97mg/dL (70-99) Laboratory Tests Test 06/29/16 18:37 06/30/16 06:00 06/30/16 11:09 Glucose (Fingerstick) 170mg/dL (70-99) 97mg/dL (70-99) White Blood Count 7.1x10^3/uL (4.0-11.0) Red Blood Count 3.24x10^6/uL (4.30-5.70) Hemoglobin 9.5g/dL (13.0-17.5) Hematocrit 28.5% (39.0-53.0) Mean Corpuscular Volume 88fL (79-100) Mean Corpuscular Hemoglobin 29pg (25-35) Mean Corpuscular Hemoglobin Concent 33g/dL (31-37) Red Cell Distribution Width 14.4% (11.5-14.5) Platelet Count 121x10^3/uL (140-400) Neutrophils (%) (Auto) 79% (31-73) Lymphocytes (%) (Auto) 8% (24-48) Monocytes (%) (Auto) 11% (0-9) Eosinophils (%) (Auto) 2% (0-3) Basophils (%) (Auto) 1% (0-3) Neutrophils # (Auto) 5.6x10^3uL (1.8-7.7) Lymphocytes # (Auto) 0.6x10^3/uL (1.0-4.8) Monocytes # (Auto) 0.8x10^3/uL (0.0-1.1) Eosinophils # (Auto) 0.1x10^3/uL (0.0-0.7) Basophils # (Auto) 0.0x10^3/uL (0.0-0.2) Sodium Level 139mmol/L (136-145) Potassium Level 3.9mmol/L (3.5-5.1) Chloride Level 104mmol/L (98-107) Carbon Dioxide Level 27mmol/L (21-32) Anion Gap 8 (6-14) Blood Urea Nitrogen 22mg/dL (8-26) Creatinine 0.9mg/dL (0.7-1.3) Estimated GFR (Cockcroft-Gault) 87.0 Glucose Level 100mg/dL (70-99) Calcium Level 8.1mg/dL (8.5-10.1) Medications Current Medications Heparin Sodium/ Dextrose 500 ml @ 0 mls/hr CONT PRN IV SEE I/O RECORD Last administered on 06/25/16 22:53; Start 06/25/16 at 00:00; Stop 06/27/16 at 00:00; Status DC Heparin Sodium (Porcine) 1850 unit 1,850 unit PRN Q6HRS PRN IV FOR UFH LEVEL LESS THAN 0.2 Last administered on 06/25/16 07:53; Start 06/25/16 at 00:00; Stop 06/27/16 at 00:00; Status DC Tirofiban/Sodium Chloride 250 ml @ 0 mls/hr CONT PRN IV PER PROTOCOL Last administered on 06/24/16 23:45; Start 06/24/16 at 23:45; Stop 06/26/16 at 08:32; Status DC Nitroglycerin/ Dextrose 250 ml @ 0 mls/hr CONT IV ; Start 06/25/16 at 00:00; Status UNV Sodium Chloride 1,000 ml @ 60 mls/hr [id number] IV Last administered on 06/26/16 22:57; Start 06/25/16 at 00:00; Stop 06/27/16 at 17:03; Status DC Nitroglycerin/ Dextrose (Nitroglycerin Drip) 250 ml @ 20 mls/hr CONT PRN IV SEE I/O RECORD Last administered on 06/25/16 00:28; Start 06/25/16 at 00:15; Stop 06/25/16 at 13:32; Status DC Info (Do NOT chart on this placeholder) 1 each 1X ONCE MC ; Start 06/25/16 at 02 :00; Stop 06/25/16 at 02:01; Status UNV Pneumococcal Polyvalent Vaccine (Do NOT chart on this placeholder) 1 each 1X ONCE MC ; Start 06/25/16 at 02:00; Stop 06/25/16 at 02:01; Status UNV Influenza Virus Vaccine Quadrival (Fluarix Quad [id number] Syringe) 0.5 ml ONCE ONCE VAX IM Last administered on 06/25/16 11:39; Start 06/25/16 at 09:00; Stop 06/25/16 at 09:01; Status DC Pneumococcal Polyvalent Vaccine (Pneumovax 23) 0.5 ml ONCE ONCE VAX IM Last administered on 06/25/16 11:35; Start 06/25/16 at 09:00; Stop 06/25/16 at 09:01; Status DC Ondansetron HCl (Zofran) 4 mg STK-MED ONCE .ROUTE ; Start 06/25/16 at 07:45; Stop 06/25/16 at 07:46; Status DC Ondansetron HCl (Zofran) 4 mg PRN Q6HRS PRN IV NAUSEA/VOMITING 1ST CHOICE Last administered on 06/25/16 08:03; Start 06/25/16 at 08:00; Stop 06/27/16 at 14:37; Status DC Famotidine (Pepcid) 20 mg BID PO Last administered on 06/26/16 21:33; Start 06/25/16 at 09:00; Stop 06/27/16 at 14:33; Status DC Fentanyl Citrate (Fentanyl 2ml Vial) 100 mcg STK-MED ONCE .ROUTE ; Start at 22:00; Stop 06/25/16 at 08:29; Status DC Heparin Sodium/ Sodium Chloride 2,000 unit STK-MED ONCE .ROUTE ; Start 06/24/16 at 22:00; Stop 06/25/16 at 08:29; Status DC Iodixanol (Visipaque 320) 200 ml STK-MED ONCE .ROUTE ; Start 06/24/16 at 22:00; Stop 06/25/16 at 08:29; Status DC Lidocaine HCl 20 ml STK-MED ONCE .ROUTE ; Start 06/24/16 at 22:00; Stop 06/25/16 at 08:29; Status DC Midazolam HCl (Versed) 2 mg STK-MED ONCE .ROUTE ; Start 06/24/16 at 22:00; Stop 06/25/16 at 08:29; Status DC Nitroglycerin/ Dextrose (Nitroglycerin Drip) 50 mg STK-MED ONCE IV ; Start at 22:00; Stop 06/25/16 at 08:29; Status DC Info (Anti-Coagulation Monitoring By Pharmacy) 1 each PRN DAILY PRN MC SEE COMMENTS Last administered on 06/26/16 08:35; Start 06/25/16 at 13:30; Stop 06/27 at 08:13; Status DC Aspirin (Ecotrin) 81 mg DAILYWBKFT PO Last administered on 06/26/16 08:40; Start 06/25/16 at 14:00; Stop 06/27/16 at 14:30; Status DC Metoprolol Tartrate (Lopressor) 12.5 mg BID PO Last administered on 06/26/16 21 :34; Start 06/25/16 at 14:00; Stop 06/27/16 at 14:36; Status DC Acetaminophen (Tylenol) 500 mg PRN Q6HRS PRN PO MILD PAIN / TEMP Last administered on 06/25/16 15:15; Start 06/25/16 at 13:30; Stop 06/27/16 at 14:29; Status DC Atorvastatin Calcium (Lipitor) 40 mg QHS PO Last administered on 06/29/16 20: 26; Start 06/25/16 at 21:00 Acetaminophen (Tylenol) 325 mg PRN Q6HRS PRN PO MILD PAIN / TEMP; Start at 15:30; Stop 06/27/16 at 14:29; Status DC Acetaminophen/ Hydrocodone Bitart (Lortab 5/325) 1 tab PRN Q6HRS PRN PO MODERATE TO SEVERE PAIN; Start 06/25/16 at 15:30; Stop 06/27/16 at 14:34; Status DC Hydralazine HCl (Apresoline) 10 mg PRN Q4HRS PRN IVP ELEVATED BP, SEE COMMENTS ; Start 06/25/16 at 15:30 Ondansetron HCl (Zofran) 4 mg PRN Q8HRS PRN IV NAUSEA/VOMITING; Start 06/25/16 at 15:30; Stop 06/26/16 at 08:32; Status DC Albuterol Sulfate 2.5 mg 2.5 mg PRN Q4HRS PRN NEB SHORTNESS OF BREATH; Start at 15:30 Potassium Chloride 70 meq/ Sodium Bicarbonate 12.5 meq/Lidocaine HCl 24 ml/ Parenteral Electrolytes 571.5 ml @ 571.5 mls/ hr 1X PERIOP ONCE IRR ; Start at 06:00; Stop 06/27/16 at 06:59; Status DC Potassium Chloride 15 meq/ Sodium Bicarbonate 12.5 meq/Parenteral Electrolytes 520 ml @ 520 mls/hr 1X PERIOP ONCE IRR ; Start 06/27/16 at 06:00; Stop at 06:59; Status DC Heparin Sodium (Porcine) 50469 unit/Lactated Ringer's 1,020 ml @ 1,020 mls/hr 1X PERIOP ONCE IRR Last administered on 06/27/16 08:34; Start 06/27/16 at 06: 00; Stop 06/27/16 at 06:59; Status DC Cefazolin Sodium/ Sodium Chloride (Ancef/Iv Sodium Chloride 0.9% 500ml Bag) 500 ml @ 500 mls/hr 1X PERIOP ONCE IRR Last administered on 06/27/16 08:34; Start 06/27/16 at 06:00; Stop 06/27/16 at 06:59; Status DC Ondansetron HCl (Zofran) 4 mg PRN Q6HRS PRN IV Nausea; Start 06/27/16 at 07:00 ; Stop 06/27/16 at 15:00; Status DC Fentanyl Citrate (Fentanyl 2ml Vial) 25 mcg PRN Q5MIN PRN IV MILD PAIN; Start 06/27/16 at 07:00; Stop 06/27/16 at 15:00; Status DC Fentanyl Citrate (Fentanyl 2ml Vial) 50 mcg PRN Q5MIN PRN IV MODERATE PAIN; Start 06/27/16 at 07:00; Stop 06/27/16 at 15:00; Status DC Morphine Sulfate 1 mg 1 mg PRN Q10MIN PRN IV SEVERE PAIN; Start 06/27/16 at 07: 00; Stop 06/27/16 at 15:00; Status DC Lactated Ringer's (Iv Lactated Ringers) 1,000 ml @ 30 mls/hr Q24H IV Last administered on 06/27/16 07:14; Start 06/27/16 at 07:00; Stop 06/27/16 at 15:00 ; Status DC Lidocaine HCl 2 ml 1X PRN PRN ID IV START; Start 06/27/16 at 07:00; Stop at 15:00; Status DC Hydromorphone HCl (Dilaudid) 0.5 mg PRN Q10MIN PRN IV SEVERE PAIN, Second choice; Start 06/27/16 at 07:00; Stop 06/27/16 at 15:00; Status DC Prochlorperazine Edisylate (Compazine) 5 mg PACU PRN PRN IV NAUSEA; Start 06/27 at 07:00; Stop 06/27/16 at 23:00; Status DC Zolpidem Tartrate (Ambien) 5 mg 1X ONCE PO Last administered on 06/26/16 23:14 ; Start 06/26/16 at 23:15; Stop 06/26/16 at 23:16; Status DC Cellulose 1 each STK-MED ONCE .ROUTE Last administered on 06/27/16 08:34; Start 06/27/16 at 06:46; Stop 06/27/16 at 06:47; Status DC Papaverine HCl 60 mg STK-MED ONCE .ROUTE Last administered on 06/27/16 08:34; Start 06/27/16 at 06:46; Stop 06/27/16 at 06:47; Status DC Aspirin (Aspirin) 300 mg STK-MED ONCE .ROUTE Last administered on 06/27/16 13: 50; Start 06/27/16 at 06:46; Stop 06/27/16 at 06:47; Status DC Vancomycin HCl (Vanco) 10 gm 1X ONCE CEMENT Last administered on 06/27/16 08: 34; Start 06/27/16 at 07:30; Stop 06/27/16 at 07:31; Status DC Etomidate (Amidate) 20 mg STK-MED ONCE IV ; Start 06/27/16 at 06:55; Stop at 06:56; Status DC Phenylephrine HCl (Gustavo-Synephrine Inj) 10 mg STK-MED ONCE .ROUTE ; Start at 06:55; Stop 06/27/16 at 06:56; Status DC Aminocaproic Acid (Amicar) 5,000 mg STK-MED ONCE IV ; Start 06/27/16 at 06:55; Stop 06/27/16 at 06:56; Status DC Midazolam HCl (Versed) 2 mg STK-MED ONCE .ROUTE ; Start 06/27/16 at 06:55; Stop 06/27/16 at 06:56; Status DC Fentanyl Citrate (Fentanyl 2ml Vial) 100 mcg STK-MED ONCE .ROUTE ; Start at 06:55; Stop 06/27/16 at 06:56; Status DC Epinephrine HCl (Adrenalin) 1 mg STK-MED ONCE .ROUTE ; Start 06/27/16 at 06:56; Stop 06/27/16 at 06:57; Status DC Rocuronium [place] (Zemuron) 100 mg STK-MED ONCE .ROUTE ; Start 06/27/16 at 06: 56; Stop 06/27/16 at 06:57; Status DC Ephedrine Sulfate 50 mg STK-MED ONCE IV ; Start 06/27/16 at 06:56; Stop at 06:57; Status DC Sufentanil Citrate (Sufenta) 100 mcg STK-MED ONCE .ROUTE ; Start 06/27/16 at 06: 56; Stop 06/27/16 at 06:57; Status DC Heparin Sodium (Porcine) 48232 unit 30,000 unit STK-MED ONCE .ROUTE ; Start 03/03 at 06:59; Stop 06/27/16 at 07:00; Status DC Nitroglycerin/ Dextrose 250 ml @ As Directed STK-MED ONCE IV ; Start 06/27/16 at 07:02; Stop 06/27/16 at 07:03; Status DC Cefazolin Sodium/ Dextrose (Ancef 2gm Premix) 50 ml @ As Directed STK-MED ONCE IV ; Start 06/27/16 at 07:04; Stop 06/27/16 at 07:05; Status DC Epinephrine HCl 1 mg STK-MED ONCE .ROUTE ; Start 06/27/16 at 07:13; Stop at 07:14; Status DC Heparin Sodium (Porcine) 30,000 unit STK-MED ONCE .ROUTE ; Start 06/27/16 at 07: 14; Stop 06/27/16 at 07:15; Status DC Sodium Chloride (Sodium Chloride) 50 ml STK-MED ONCE IJ Last administered on t 08:34; Start 06/27/16 at 07:25; Stop 06/27/16 at 07:26; Status DC Vancomycin HCl 10 gm 10 gm 1X ONCE CEMENT ; Start 06/27/16 at 07:45; Stop 06/27 at 07:46; Status DC Cefazolin Sodium/ Dextrose 50 ml @ 100 mls/hr 1X ONCE IV Last administered on 06/27/16t 08:15; Start 06/27/16 at 07:45; Stop 06/27/16 at 08:14; Status DC Mannitol (Mannitol Iv Soln) 500 ml @ 0 mls/hr 1X ONCE IV ; Start 06/27/16 at 08 :00; Stop 06/27/16 at 08:01; Status DC Midazolam HCl (Versed) 2 mg STK-MED ONCE .ROUTE ; Start 06/27/16 at 08:36; Stop 06/27/16 at 08:37; Status DC Rocuronium [place] (Zemuron) 100 mg STK-MED ONCE .ROUTE ; Start 06/27/16 at 08: 47; Stop 06/27/16 at 08:48; Status DC Dexamethasone Sodium Phosphate (Decadron) 20 mg STK-MED ONCE .ROUTE ; Start 03/03 at 09:03; Stop 06/27/16 at 09:04; Status DC Protamine Sulfate 250 mg STK-MED ONCE IV ; Start 06/27/16 at 11:22; Stop at 11:23; Status DC Rocuronium [place] 50 mg 50 mg STK-MED ONCE .ROUTE ; Start 06/27/16 at 11:30; Stop 06/27/16 at 11:31; Status DC Insulin Human Regular/Sodium Chloride (Novolin R Vial/ Iv Normal Saline 150ml) 151.5 ml @ 7.46 mls/hr CONT PRN IV SEE I/O RECORD; Start 06/27/16 at 12:15; Stop 06/27/16 at 14:35; Status DC Midazolam HCl (Versed) 2 mg STK-MED ONCE .ROUTE ; Start 06/27/16 at 12:11; Stop 06/27/16 at 12:12; Status DC Sodium Bicarbonate 50 meq STK-MED ONCE .ROUTE ; Start 06/27/16 at 12:31; Stop at 12:32; Status DC Protamine Sulfate 50 mg STK-MED ONCE IV ; Start 06/27/16 at 12:34; Stop at 12:35; Status DC Protamine Sulfate 50 mg 50 mg STK-MED ONCE IV ; Start 06/27/16 at 12:35; Stop at 12:36; Status DC Epinephrine HCl/ Sodium Chloride (Adrenalin/Iv Sodium Chloride 0.9% 250ml) 254 ml @ 3.81 mls/hr 1X ONCE IV ; Start 06/27/16 at 13:15; Stop 06/27/16 at 14:31 ; Status DC Lidocaine HCl (Xylocaine-Mpf 1% Vial) 5 ml STK-MED ONCE .ROUTE ; Start 06/27/16 at 13:04; Stop 06/27/16 at 13:05; Status DC Magnesium Sulfate 5 gm 5 gm STK-MED ONCE .ROUTE ; Start 06/27/16 at 13:04; Stop 06/27/16 at 13:05; Status DC Albumin Human (Albuminar) 200 ml @ As Directed STK-MED ONCE IV ; Start at 13:04; Stop 06/27/16 at 13:05; Status DC Sodium Bicarbonate 50 meq STK-MED ONCE .ROUTE ; Start 06/27/16 at 13:04; Stop at 13:05; Status DC Sodium Chloride 3 ml 3 ml PRN Q12HR PRN IV AFTER MEDS AND BLOOD DRAWS; Start at 13:00 Lactated Ringer's 1,000 ml @ 30 mls/hr Q24H IV Last administered on 06/28/16t 19:32; Start 06/27/16 at 12:50 Insulin Human Regular/Sodium Chloride (Novolin R Vial/ Iv Normal Saline 150ml) 151.5 ml @ 0 mls/hr CONT PRN PRN IV SEE I/O RECORD; Start 06/27/16 at 13:00; Stop 06/29/16 at 12:21; Status DC Dextrose 25 gm 25 gm PRN Q15MIN PRN IV LOW BLOOD SUGAR; Start 06/27/16 at 13:00 Nitroglycerin/ Dextrose 250 ml @ 0 mls/hr CONT PRN PRN IV SEE I/O RECORD; Start 06/27/16 at 13:00 Dopamine HCl/ Dextrose 250 ml @ 0 mls/hr CONT PRN PRN IV SEE I/O RECORD; Start 06/27/16 at 13:00 Dobutamine HCl/ Dextrose 250 ml @ 0 mls/hr CONT PRN PRN IV SEE I/O RECORD; Start 06/27/16 at 13:00 Phenylephrine HCl 20 mg/Sodium Chloride 252 ml @ 0 mls/hr CONT PRN PRN IV HYPOTENSION; Start 06/27/16 at 13:00; Stop 06/28/16 at 20:15; Status DC Epinephrine HCl 4 mg/Sodium Chloride 254 ml @ 0 mls/hr CONT PRN PRN IV POST CV SURGERY; Start 06/27/16 at 13:00 Amiodarone HCl 150 mg/Dextrose 103 ml @ 200 mls/hr 1X PRN PRN IV FOR RUNS OF VT; Start 06/27/16 at 13:00; Stop 06/27/16 at 13:13; Status DC Amiodarone HCl 900 mg/Dextrose 518 ml @ 33.33 mls/ hr CONT PRN PRN IV RUNS OF VT; Start 06/27/16 at 13:00; Stop 06/27/16 at 13:13; Status DC Amiodarone HCl 150 mg/Dextrose 103 ml @ 200 mls/hr 1X PRN PRN IV [place] Last administered on 06/27/16t 15:47; Start 06/27/16 at 13:00 Amiodarone HCl/ Dextrose (Cordarone) 518 ml @ 33.33 mls/ hr CONT PRN PRN IV SEE COMMENTS Last administered on 06/27/16t 15:49; Start 06/27/16 at 13:00; Stop 06/29/16 at 12:20; Status DC Info 1 ea CONT PRN PRN MC SEE COMMENTS; Start 06/27/16 at 13:00 Info 1 ea 1 ea CONT PRN PRN MC SEE COMMENTS; Start 06/27/16 at 13:00 Magnesium Sulfate/ Dextrose (Magnesium Sulfate PREMIX 1GM) 100 ml @ 100 mls/hr PRN DAILY PRN IV FOR MAG < 2.2; Start 06/27/16 at 13:00 Famotidine (Pepcid) 20 mg BID IVP ; Start 06/27/16 at 21:00; Stop 06/27/16 at 21 :00; Status DC Ondansetron HCl (Zofran) 4 mg PRN Q4HRS PRN IV NAUSEA/VOMITING Last administered on 06/28/16 13:15; Start 06/27/16 at 13:00 Morphine Sulfate 2 mg PRN Q1HR PRN IV PAIN Last administered on 06/27/16 23:14 ; Start 06/27/16 at 13:00 Acetaminophen (Tylenol) 650 mg PRN Q4HRS PRN PO MILD PAIN / TEMP; Start at 13:00 Acetaminophen (Tylenol) 650 mg PRN Q4HRS PRN [place] MILD PAIN / TEMP; Start at 13:00 Meperidine HCl 12.5 mg 12.5 mg PRN Q15MIN PRN IV SHIVERING; Start 06/27/16 at 13:00; Stop 06/28/16 at 13:00; Status DC Propofol (Diprivan) 100 ml @ 0 mls/hr CONT PRN PRN IV POSTOP SEDATION UNTIL EXTUBATE; Start 06/27/16 at 13:00 Senna/Docusate Sodium (Senna Plus) 1 tab BID PO Last administered on 06/30/16 09:14; Start 06/27/16 at 21:00 Bisacodyl (Dulcolax Supp) 10 mg PRN DAILY PRN MN NO BOWEL MOVEMENT; Start 06/27 at 13:00 Aspirin (Ecotrin) 325 mg DAILYWBKFT PO Last administered on 06/30/16 09:14; Start 06/28/16 at 08:00 Aspirin (Aspirin) 300 mg PRN DAILY PRN MN IF UNABLE TO TAKE PO; Start 06/27/16 at 13:00 Metoprolol Tartrate 25 mg 25 mg BID PO Last administered on 06/28/16 10:28; Start 06/28/16 at 09:00; Stop 06/29/16 at 15:43; Status DC Clevidipine (Cleviprex) 100 ml @ 0 mls/hr CONT PRN IV PER PROTOCOL; Start 06/27 at 13:00 Acetaminophen/ Hydrocodone Bitart (Lortab 5/325) 1 tab PRN Q4HRS PRN PO MILD PAIN Last administered on 06/29/16 16:01; Start 06/27/16 at 13:00 Acetaminophen/ Hydrocodone Bitart 2 tab 2 tab PRN Q4HRS PRN PO MODERATE PAIN, SEVERE PAIN Last administered on 06/30/16 11:07; Start 06/27/16 at 13:00 Cefazolin Sodium/ Sodium Chloride (Ancef/Iv Sodium Chloride 0.9% 50ml) 50 ml @ 100 mls/hr Q8H IV ; Start 06/27/16 at 16:00; Stop 06/27/16 at 16:00; Status DC Hydromorphone HCl (Dilaudid) 0.2 mg PRN Q1HR PRN IVP PAIN Last administered on 06/29/16 09:23; Start 06/27/16 at 13:00; Stop 06/29/16 at 10:39; Status DC Hydromorphone HCl (Dilaudid) 0.4 mg PRN Q1HR PRN IVP PAIN; Start 06/27/16 at 13 :00; Stop 06/29/16 at 10:39; Status DC Midazolam HCl 2 mg 2 mg STK-MED ONCE .ROUTE ; Start 06/27/16 at 13:47; Stop 03/03 at 13:48; Status DC Albumin Human 250 ml @ 62.5 mls/hr 1X ONCE IV Last administered on 06/27/16 15:28; Start 06/27/16 at 15:00; Stop 06/27/16 at 18:59; Status DC Cefazolin Sodium 1 gm/Sodium Chloride 50 ml @ 100 mls/hr Q8H IV Last administered on 06/29/16 03:15; Start 06/27/16 at 19:00; Stop 06/29/16 at 03:29 ; Status DC Potassium Chloride 50 ml @ 0 mls/hr Q1H IV Last administered on 06/27/16 18:05 ; Start 06/27/16 at 15:15; Stop 06/27/16 at 18:16; Status DC Calcium Chloride 1000 mg/Sodium Chloride 60 ml @ 120 mls/hr 1X ONCE IV ; Start 06/27/16 at 15:15; Stop 06/27/16 at 15:44; Status Cancel Amiodarone HCl 150 mg/Dextrose 103 ml @ 200 mls/hr 1X PRN PRN IV VT; Start 03/03 at 15:30; Stop 06/27/16 at 15:30; Status DC Amiodarone HCl 150 mg/Dextrose 103 ml @ 200 mls/hr 1X ONCE IV Last administered on 06/27/16 15:30; Start 06/27/16 at 15:30; Stop 06/27/16 at 16:00 ; Status DC Calcium Gluconate/ Sodium Chloride (Iv Sodium Chloride 0.9% 100ml) 110 ml @ 220 mls/hr 1X ONCE IV Last administered on 06/27/16 15:49; Start 06/27/16 at 15:30; Stop 06/27/16 at 15:59; Status DC Famotidine (Pepcid) 20 mg BID PO Last administered on 06/30/16 09:14; Start at 21:00 Furosemide (Lasix) 40 mg Q12H IVP Last administered on 06/28/16 07:01; Start 06/28/16 at 07:00; Stop 06/28/16 at 15:21; Status DC Ketorolac Tromethamine 30 mg 30 mg PRN Q6HRS PRN IV PAIN Last administered on 11:06; Start 06/28/16 at 10:45; Stop 06/28/16 at 15:21; Status DC Albumin Human (Plasmanate) 500 ml @ 125 mls/hr 1X ONCE IV Last administered on 06/28/16 13:45; Start 06/28/16 at 13:45; Stop 06/28/16 at 17:44; Status DC Prochlorperazine Edisylate (Compazine) 10 mg PRN Q6HRS PRN IV NAUSEA/VOMITING; Start 06/28/16 at 14:45 Prochlorperazine Edisylate 10 mg 10 mg 1X STAT IV Last administered on 14:53; Start 06/28/16 at 14:34; Stop 06/28/16 at 14:38; Status DC Phenylephrine HCl/ Sodium Chloride (Gustavo-Synephrine Inj/Iv Sodium Chloride 0.9% 250ml) 252 ml @ 0 mls/hr CONT PRN IV SEE I/O RECORD Last administered on 16:02; Start 06/28/16 at 14:45 Furosemide (Lasix) 20 mg Q12H IVP ; Start 06/28/16 at 19:00; Stop 06/29/16 at 15 :42; Status DC Ketorolac Tromethamine (Toradol) 15 mg PRN Q6HRS PRN IV PAIN Last administered on 06/28/16 17:14; Start 06/28/16 at 15:30; Stop 06/29/16 at 15:42; Status DC Amiodarone HCl (Cordarone) 200 mg BID PO Last administered on 06/29/16 08:45; Start 06/28/16 at 21:00; Stop 06/29/16 at 15:42; Status DC Simethicone (Gas-X) 160 mg PRN AFTMEALHC PO ; Start 06/28/16 at 18:00 Furosemide (Lasix) 20 mg 1X ONCE IVP Last administered on 06/28/16 23:18; Start 06/28/16 at 23:15; Stop 06/28/16 at 23:16; Status DC Insulin Aspart (Novolog) 0-5 UNITS TIDWMEALS SQ Last administered on 06/29/16 18:42; Start 06/29/16 at 17:00 Dextrose 12.5 gm PRN Q15MIN PRN IV SEE COMMENTS; Start 06/29/16 at 12:30 Amiodarone HCl (Cordarone) 200 mg DAILY PO ; Start 06/30/16 at 09:00; Stop 06/30 at 09:00; Status DC Metoprolol Tartrate (Lopressor) 12.5 mg BID PO Last administered on 06/30/16 09:13; Start 06/29/16 at 21:00; Stop 06/30/16 at 10:32; Status DC Amiodarone HCl 200 mg 200 mg DAILY PO Last administered on 06/30/16 09:14; Start 06/30/16 at 09:00 Potassium Chloride (KCl Premix 20meq) 50 ml @ 50 mls/hr Q1H IV Last administered on 06/30/16 09:16; Start 06/30/16 at 08:00; Stop 06/30/16 at 09:59 ; Status DC Cefazolin Sodium/ Dextrose (Ancef 2gm Premix) 2 gm STK-MED ONCE IV ; Start 06/27 at 12:10; Stop 06/30/16 at 08:46; Status DC Metoprolol Tartrate (Lopressor) 25 mg BID PO ; Start 06/30/16 at 21:00 Active Scripts Active Reported Niaspan (Niacin) 500 Mg Tab.er.24h 1 Tab PO DAILY Excedrin Migraine Caplet (Aspirin/Acetaminophen/Caffeine) 1 Each Tablet 1 Each PO PRN DAILY PRN Vitals/I & O Vital Sign - Last 24 Hours 06/29/16 06/29/16 06/29/16 06/29/16 13:00 14:00 15:00 16:00 Temp 97.0 97.0 Pulse 96 92 94 Resp 22 B/P 115/78 97/68 82/59 Pulse Ox 96 94 94 O2 Delivery Room Air Nasal Cannula O2 Flow Rate 6.0 06/29/16 06/29/16 06/29/16 06/29/16 16:00 16:01 17:00 18:00 Pulse 92 94 90 Resp 22 22 21 20 B/P 133/88 134/78 109/71 Pulse Ox 94 96 94 94 O2 Delivery Room Air 06/29/16 06/29/16 06/29/16 06/29/16 19:00 20:00 20:00 20:26 Temp 98.0 98.0 Pulse 93 92 Resp 24 22 15 B/P 111/73 108/64 Pulse Ox 92 93 96 O2 Delivery Room Air Room Air Room Air Room Air 06/29/16 06/29/16 06/29/16 06/29/16 21:00 21:00 22:00 23:00 Pulse 92 93 95 92 Resp 19 15 13 B/P 111/72 96/62 101/68 Pulse Ox 92 93 90 O2 Delivery Room Air Room Air Room Air 06/29/16 06/30/16 06/30/16 06/30/16 23:33 00:00 00:00 00:35 Temp 98.7 98.7 Pulse 92 Resp 15 11 B/P 127/79 Pulse Ox 95 98 O2 Delivery Nasal Cannula Nasal Cannula Room Air O2 Flow Rate 3.0 3.0 3.0 06/30/16 06/30/16 06/30/16 06/30/16 01:00 02:00 03:00 04:00 Pulse 92 92 91 Resp 11 11 11 B/P 86/64 93/58 85/57 Pulse Ox 99 97 97 O2 Delivery Nasal Cannula Nasal Cannula Nasal Cannula Nasal Cannula O2 Flow Rate 3.0 3.0 3.0 3.0 06/30/16 06/30/16 06/30/16 2/13/17 04:00 05:00 06:00 07:00 Temp 98.2 98.6 98.2 98.6 Pulse 94 96 94 101 Resp 15 16 18 B/P 101/72 89/71 111/73 98/69 Pulse Ox 96 94 96 96 O2 Delivery Nasal Cannula Nasal Cannula Nasal Cannula Room Air O2 Flow Rate 3.0 3.0 3.0 06/30/16 06/30/16 06/30/16 06/30/16 07:10 07:15 07:39 08:15 Temp 98.6 98.6 Pulse 100 Resp 16 18 B/P 98/69 Pulse Ox 96 96 O2 Delivery Room Air Room Air 06/30/16 06/30/16 06/30/16 06/30/16 09:00 09:13 09:14 10:00 Pulse 105 105 105 97 Resp 18 B/P 144/81 144/81 144/81 Pulse Ox 94 96 O2 Delivery Room Air Room Air 06/30/16 06/30/16 06/30/16 06/30/16 11:00 11:07 11:55 12:10 Temp 98.1 98.1 Pulse 90 92 Resp 16 12 B/P 119/71 100/70 Pulse Ox 96 96 96 O2 Delivery Room Air Room Air Room Air Room Air 06/30/16 12:22 O2 Delivery Room Air Intake and Output 06/29/16 06/29/16 06/30/16 15:00 23:00 07:00 Intake Total 280 ml 1496 ml 623.6 ml Output Total 490 ml 720 ml 720 ml Balance -210 ml 776 ml -96.4 ml EDILMA ROY MD Jun 30, 2016 12:35
--- NOTE | 2016-06-30 14:35 | PDOC ---
Progress Note Subjective Subjective Doing very well. On RA. Normotensive and in sinus rhythm. Creatinine down 0.9 from 1.3, excellent UO. ROS ROS No nausea No vomiting No pain No rash Vital Sign Vital Signs Vital Signs Date Time Temp Pulse Resp B/P Pulse Ox O2 Delivery O2 Flow Rate FiO2 06/30/16 14:00 97.8 93 15 109/73 Room Air 97.8 06/30/16 13:00 94 06/30/16 06:00 3.0 Physical Exam PHYSICAL EXAM Sternotomy: C/D/I, stable Lower extremities: no edema, incision: C/D/I Labs Lab Laboratory Tests Test 06/29/16 18:37 06/30/16 06:00 06/30/16 11:09 Glucose (Fingerstick) 170mg/dL (70-99) 97mg/dL (70-99) White Blood Count 7.1x10^3/uL (4.0-11.0) Red Blood Count 3.24x10^6/uL (4.30-5.70) Hemoglobin 9.5g/dL (13.0-17.5) Hematocrit 28.5% (39.0-53.0) Mean Corpuscular Volume 88fL (79-100) Mean Corpuscular Hemoglobin 29pg (25-35) Mean Corpuscular Hemoglobin Concent 33g/dL (31-37) Red Cell Distribution Width 14.4% (11.5-14.5) Platelet Count 121x10^3/uL (140-400) Neutrophils (%) (Auto) 79% (31-73) Lymphocytes (%) (Auto) 8% (24-48) Monocytes (%) (Auto) 11% (0-9) Eosinophils (%) (Auto) 2% (0-3) Basophils (%) (Auto) 1% (0-3) Neutrophils # (Auto) 5.6x10^3uL (1.8-7.7) Lymphocytes # (Auto) 0.6x10^3/uL (1.0-4.8) Monocytes # (Auto) 0.8x10^3/uL (0.0-1.1) Eosinophils # (Auto) 0.1x10^3/uL (0.0-0.7) Basophils # (Auto) 0.0x10^3/uL (0.0-0.2) Sodium Level 139mmol/L (136-145) Potassium Level 3.9mmol/L (3.5-5.1) Chloride Level 104mmol/L (98-107) Carbon Dioxide Level 27mmol/L (21-32) Anion Gap 8 (6-14) Blood Urea Nitrogen 22mg/dL (8-26) Creatinine 0.9mg/dL (0.7-1.3) Estimated GFR (Cockcroft-Gault) 87.0 Glucose Level 100mg/dL (70-99) Calcium Level 8.1mg/dL (8.5-10.1) Objective Assessment POD#3, s/p CABG x 3 (SVG to LAD, SVG to OM2, SVG to distal RCA), doing very well. No issues. Normotensive and NSR, on room air. Plan Plan of Care D/c cordis D/c quiroz D/c pacing wires Transfer to floor Amio 200mg daily for A Fib prophylaxis No more labs JESS KEEN MD Jun 30, 2016 14:34
[2016-06-30] MEDS ORDERED: METOPROLOL TART IMMED RELEASE 25 MG TABLET PO SCH (21:00)
[2016-06-30] MEDS: ATORVASTATIN CALCIUM 40 MG TABLET. PO SCH (21:07)
[2016-07-01 03:00] VITALS: BP 99/70
[2016-07-01 07:19] VITALS: BP 156/96
[2016-07-01] MEDS: METOPROLOL TART IMMED RELEASE 25 MG TABLET PO SCH ×2 (08:01→20:07)
[2016-07-01] MEDS: ASPIRIN ENTERIC COATED 325 MG TABLET.DR. PO SCH (08:01)
[2016-07-01] MEDS: AMIODARONE HCL 200 MG TABLET PO SCH (08:01)
[2016-07-01] MEDS: SENNOSIDES/DOCUSATE 8.6/50MG TABLET. PO SCH ×2 (08:02→20:07)
[2016-07-01] MEDS: FAMOTIDINE 20 MG TABLET. PO SCH ×2 (08:02→20:07)
--- NOTE | 2016-07-01 09:26 | PDOC ---
MURRAY ANN ASSOCIATE PROFESSOR OF MUSICOLOGY 07/01/16 0926: CARDIO Progress Notes Date and Time Date of Service 07/01/2016 Time of Evaluation 0915 Subjective Subjective: No Chest Pain, No shortness of breath, No Palpitations, No Dizziness, Other (Surgical pain controlled) Vitals Vitals Vital Signs Date Time Temp Pulse Resp B/P Pulse Ox O2 Delivery O2 Flow Rate FiO2 07/01/16 08:15 Room Air 07/01/16 08:01 103 156/96 07/01/16 07:19 98.6 20 100 98.6 Weight Weight [ ] Input and Output Intake and Output Intake and Output 07/01/16 07:00 Intake Total 640 ml Output Total 600 ml Balance 40 ml Intake Oral 420 ml IV Total 220 ml Output Urine Total 600 ml Laboratory Labs Laboratory Tests Test 06/30/16 09:56 06/30/16 10:53 06/30/16 11:09 06/30/16 11:22 Activated Clotting Time 519SEC (90-125) 565SEC (90-125) 560SEC (90-125) Glucose (Fingerstick) 97mg/dL (70-99) Test 06/30/16 11:53 06/30/16 12:26 06/30/16 12:58 Activated Clotting Time 531SEC (90-125) 549SEC (90-125) 124SEC (90-125) Physical Exam HEENT: Neck Supple W Full Motion Chest: Symmetric LUNGS: Other (bibasilar crackles) Heart: S1S2, RRR (no significant rhythm ectopies overnight. ) Abdomen: Soft N/T Extremities: No Calf Tenderness, Other (1+ bilateral LE pitting edema) Neurology: alert, oriented, follow commands Assessment Assessment 1. STEMI with 3VD: stable 2. S/P CABG: POD#4, doing well 3. Postoperative anemia: stable Hgb at 9.5 Recommendation 1. Continue post CABG treatment protocol 2. HR baseline 90s, BP adequate, Continue with current BB dosing. Low dose ACEi to consider per BP trend 3. Tolerating rehab 4. Anticipate DC tomorrow 5. Follow up in our office in 4 weeks. DELILAH GUALLPA MD 07/01/16 0429: CARDIO Progress Notes Assessment Assessment Patient seen and examined. Agree with WIREWORKER SUPERVISOR's assessment and plan. Telemetry did not show any significant arrhythmias. Continue PT/OT. Possible discharge home tomorrow. MURRAY ANN APRN Jul 01, 2016 09:26 DELILAH GUALLPA MD Jul 01, 2016 16:57
[2016-07-01] MEDS: HYDROCODONE/APAP 5/325MG TABLET. PO PRN ×2 (10:22→20:09)
[2016-07-01 11:24] VITALS: BP 115/81
--- NOTE | 2016-07-01 12:41 | PDOC ---
PROGRESS NOTES Chief Complaint Chief Complaint A/P 1. ST elevation [place], anterior wall 2. 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 3. Severe cardiomyopathy, ischemic 4. anemia, expected post sx Plan s/p CABG POD 3 iv amadinone , changed to PO low dose beta lanre metoprol Phenylephedrine off monitor electrolytes Monitor platelets Mediastinal tube removed, chest tube removed Pain control with iv Dilaudid, prn Toradol CVTS/cardiology following incentive spirometry dc tmr as per CT History of Present Illness History of Present Illness No chest pain no fever no chills Vitals Vitals Vital Signs Date Time Temp Pulse Resp B/P Pulse Ox O2 Delivery O2 Flow Rate FiO2 07/01/16 11:48 16 Room Air 07/01/16 11:24 98.5 101 115/81 94 98.5 Physical Exam Physical Exam Sternotomy: C/D/I, stable Lower extremities: no edema, incision: C/D/I General: Alert, Oriented X3, Cooperative, No acute distress Heart: Regular rate, Normal S1, Normal S2, No murmurs Lungs: Clear Abdomen: Normal bowel sounds, Soft, No tenderness Extremities: No edema Skin: No significant lesion Labs LABS Laboratory Tests Test 06/30/16 12:58 Activated Clotting Time 124SEC (90-125) Review of Systems Review of Systems no fever, chills, sob or chest pain Assessment and Plan Assessmemt and Plan Problems Medical Problems: (1) CAD (coronary artery disease) Status: Acute Problems: Comment Review of Relevant I have reviewed the following items fco (where applicable) has been applied. Labs Laboratory Tests Test 06/29/16 18:37 06/30/16 06:00 06/30/16 07:55 06/30/16 09:56 Glucose (Fingerstick) 170mg/dL (70-99) White Blood Count 7.1x10^3/uL (4.0-11.0) Red Blood Count 3.24x10^6/uL (4.30-5.70) Hemoglobin 9.5g/dL (13.0-17.5) Hematocrit 28.5% (39.0-53.0) Mean Corpuscular Volume 88fL (79-100) Mean Corpuscular Hemoglobin 29pg (25-35) Mean Corpuscular Hemoglobin Concent 33g/dL (31-37) Red Cell Distribution Width 14.4% (11.5-14.5) Platelet Count 121x10^3/uL (140-400) Neutrophils (%) (Auto) 79% (31-73) Lymphocytes (%) (Auto) 8% (24-48) Monocytes (%) (Auto) 11% (0-9) Eosinophils (%) (Auto) 2% (0-3) Basophils (%) (Auto) 1% (0-3) Neutrophils # (Auto) 5.6x10^3uL (1.8-7.7) Lymphocytes # (Auto) 0.6x10^3/uL (1.0-4.8) Monocytes # (Auto) 0.8x10^3/uL (0.0-1.1) Eosinophils # (Auto) 0.1x10^3/uL (0.0-0.7) Basophils # (Auto) 0.0x10^3/uL (0.0-0.2) Sodium Level 139mmol/L (136-145) Potassium Level 3.9mmol/L (3.5-5.1) Chloride Level 104mmol/L (98-107) Carbon Dioxide Level 27mmol/L (21-32) Anion Gap 8 (6-14) Blood Urea Nitrogen 22mg/dL (8-26) Creatinine 0.9mg/dL (0.7-1.3) Estimated GFR (Cockcroft-Gault) 87.0 Glucose Level 100mg/dL (70-99) Calcium Level 8.1mg/dL (8.5-10.1) Activated Clotting Time 108SEC (90-125) 519SEC (90-125) Test 06/30/16 10:53 06/30/16 11:09 06/30/16 11:22 06/30/16 11:53 Activated Clotting Time 565SEC (90-125) 560SEC (90-125) 531SEC (90-125) Glucose (Fingerstick) 97mg/dL (70-99) Test 06/30/16 12:26 06/30/16 12:58 Activated Clotting Time 549SEC (90-125) 124SEC (90-125) Laboratory Tests Test 06/30/16 12:58 Activated Clotting Time 124SEC (90-125) Medications Current Medications Heparin Sodium/ Dextrose 500 ml @ 0 mls/hr CONT PRN IV SEE I/O RECORD Last administered on 06/25/16 22:53; Start 06/25/16 at 00:00; Stop 06/27/16 at 00:00; Status DC Heparin Sodium (Porcine) 1850 unit 1,850 unit PRN Q6HRS PRN IV FOR UFH LEVEL LESS THAN 0.2 Last administered on 06/25/16 07:53; Start 06/25/16 at 00:00; Stop 06/27/16 at 00:00; Status DC Tirofiban/Sodium Chloride 250 ml @ 0 mls/hr CONT PRN IV PER PROTOCOL Last administered on 06/24/16 23:45; Start 06/24/16 at 23:45; Stop 06/26/16 at 08:32; Status DC Nitroglycerin/ Dextrose 250 ml @ 0 mls/hr CONT IV ; Start 06/25/16 at 00:00; Status UNV Sodium Chloride 1,000 ml @ 60 mls/hr [id number] IV Last administered on 06/26/16 22:57; Start 06/25/16 at 00:00; Stop 06/27/16 at 17:03; Status DC Nitroglycerin/ Dextrose (Nitroglycerin Drip) 250 ml @ 20 mls/hr CONT PRN IV SEE I/O RECORD Last administered on 06/25/16 00:28; Start 06/25/16 at 00:15; Stop 06/25/16 at 13:32; Status DC Info (Do NOT chart on this placeholder) 1 each 1X ONCE MC ; Start 06/25/16 at 02 :00; Stop 06/25/16 at 02:01; Status UNV Pneumococcal Polyvalent Vaccine (Do NOT chart on this placeholder) 1 each 1X ONCE MC ; Start 06/25/16 at 02:00; Stop 06/25/16 at 02:01; Status UNV Influenza Virus Vaccine Quadrival (Fluarix Quad [id number] Syringe) 0.5 ml ONCE ONCE VAX IM Last administered on 06/25/16 11:39; Start 06/25/16 at 09:00; Stop 06/25/16 at 09:01; Status DC Pneumococcal Polyvalent Vaccine (Pneumovax 23) 0.5 ml ONCE ONCE VAX IM Last administered on 06/25/16 11:35; Start 06/25/16 at 09:00; Stop 06/25/16 at 09:01; Status DC Ondansetron HCl (Zofran) 4 mg STK-MED ONCE .ROUTE ; Start 06/25/16 at 07:45; Stop 06/25/16 at 07:46; Status DC Ondansetron HCl (Zofran) 4 mg PRN Q6HRS PRN IV NAUSEA/VOMITING 1ST CHOICE Last administered on 06/25/16 08:03; Start 06/25/16 at 08:00; Stop 06/27/16 at 14:37; Status DC Famotidine (Pepcid) 20 mg BID PO Last administered on 06/26/16 21:33; Start 06/25/16 at 09:00; Stop 06/27/16 at 14:33; Status DC Fentanyl Citrate (Fentanyl 2ml Vial) 100 mcg STK-MED ONCE .ROUTE ; Start at 22:00; Stop 06/25/16 at 08:29; Status DC Heparin Sodium/ Sodium Chloride 2,000 unit STK-MED ONCE .ROUTE ; Start 06/24/16 at 22:00; Stop 06/25/16 at 08:29; Status DC Iodixanol (Visipaque 320) 200 ml STK-MED ONCE .ROUTE ; Start 06/24/16 at 22:00; Stop 06/25/16 at 08:29; Status DC Lidocaine HCl 20 ml STK-MED ONCE .ROUTE ; Start 06/24/16 at 22:00; Stop 06/25/16 at 08:29; Status DC Midazolam HCl (Versed) 2 mg STK-MED ONCE .ROUTE ; Start 06/24/16 at 22:00; Stop 06/25/16 at 08:29; Status DC Nitroglycerin/ Dextrose (Nitroglycerin Drip) 50 mg STK-MED ONCE IV ; Start at 22:00; Stop 06/25/16 at 08:29; Status DC Info (Anti-Coagulation Monitoring By Pharmacy) 1 each PRN DAILY PRN MC SEE COMMENTS Last administered on 06/26/16 08:35; Start 06/25/16 at 13:30; Stop 06/27 at 08:13; Status DC Aspirin (Ecotrin) 81 mg DAILYWBKFT PO Last administered on 06/26/16 08:40; Start 06/25/16 at 14:00; Stop 06/27/16 at 14:30; Status DC Metoprolol Tartrate (Lopressor) 12.5 mg BID PO Last administered on 06/26/16 21 :34; Start 06/25/16 at 14:00; Stop 06/27/16 at 14:36; Status DC Acetaminophen (Tylenol) 500 mg PRN Q6HRS PRN PO MILD PAIN / TEMP Last administered on 06/25/16 15:15; Start 06/25/16 at 13:30; Stop 06/27/16 at 14:29; Status DC Atorvastatin Calcium (Lipitor) 40 mg QHS PO Last administered on 06/30/16 21: 07; Start 06/25/16 at 21:00 Acetaminophen (Tylenol) 325 mg PRN Q6HRS PRN PO MILD PAIN / TEMP; Start at 15:30; Stop 06/27/16 at 14:29; Status DC Acetaminophen/ Hydrocodone Bitart (Lortab 5/325) 1 tab PRN Q6HRS PRN PO MODERATE TO SEVERE PAIN; Start 06/25/16 at 15:30; Stop 06/27/16 at 14:34; Status DC Hydralazine HCl (Apresoline) 10 mg PRN Q4HRS PRN IVP ELEVATED BP, SEE COMMENTS ; Start 06/25/16 at 15:30 Ondansetron HCl (Zofran) 4 mg PRN Q8HRS PRN IV NAUSEA/VOMITING; Start 06/25/16 at 15:30; Stop 06/26/16 at 08:32; Status DC Albuterol Sulfate 2.5 mg 2.5 mg PRN Q4HRS PRN NEB SHORTNESS OF BREATH; Start at 15:30 Potassium Chloride 70 meq/ Sodium Bicarbonate 12.5 meq/Lidocaine HCl 24 ml/ Parenteral Electrolytes 571.5 ml @ 571.5 mls/ hr 1X PERIOP ONCE IRR ; Start at 06:00; Stop 06/27/16 at 06:59; Status DC Potassium Chloride 15 meq/ Sodium Bicarbonate 12.5 meq/Parenteral Electrolytes 520 ml @ 520 mls/hr 1X PERIOP ONCE IRR ; Start 06/27/16 at 06:00; Stop at 06:59; Status DC Heparin Sodium (Porcine) 69928 unit/Lactated Ringer's 1,020 ml @ 1,020 mls/hr 1X PERIOP ONCE IRR Last administered on 06/27/16 08:34; Start 06/27/16 at 06: 00; Stop 06/27/16 at 06:59; Status DC Cefazolin Sodium/ Sodium Chloride (Ancef/Iv Sodium Chloride 0.9% 500ml Bag) 500 ml @ 500 mls/hr 1X PERIOP ONCE IRR Last administered on 06/27/16 08:34; Start 06/27/16 at 06:00; Stop 06/27/16 at 06:59; Status DC Ondansetron HCl (Zofran) 4 mg PRN Q6HRS PRN IV Nausea; Start 06/27/16 at 07:00 ; Stop 06/27/16 at 15:00; Status DC Fentanyl Citrate (Fentanyl 2ml Vial) 25 mcg PRN Q5MIN PRN IV MILD PAIN; Start 06/27/16 at 07:00; Stop 06/27/16 at 15:00; Status DC Fentanyl Citrate (Fentanyl 2ml Vial) 50 mcg PRN Q5MIN PRN IV MODERATE PAIN; Start 06/27/16 at 07:00; Stop 06/27/16 at 15:00; Status DC Morphine Sulfate 1 mg 1 mg PRN Q10MIN PRN IV SEVERE PAIN; Start 06/27/16 at 07: 00; Stop 06/27/16 at 15:00; Status DC Lactated Ringer's (Iv Lactated Ringers) 1,000 ml @ 30 mls/hr Q24H IV Last administered on 06/27/16 07:14; Start 06/27/16 at 07:00; Stop 06/27/16 at 15:00 ; Status DC Lidocaine HCl 2 ml 1X PRN PRN ID IV START; Start 06/27/16 at 07:00; Stop at 15:00; Status DC Hydromorphone HCl (Dilaudid) 0.5 mg PRN Q10MIN PRN IV SEVERE PAIN, Second choice; Start 06/27/16 at 07:00; Stop 06/27/16 at 15:00; Status DC Prochlorperazine Edisylate (Compazine) 5 mg PACU PRN PRN IV NAUSEA; Start 06/27 at 07:00; Stop 06/27/16 at 23:00; Status DC Zolpidem Tartrate (Ambien) 5 mg 1X ONCE PO Last administered on 06/26/16 23:14 ; Start 06/26/16 at 23:15; Stop 06/26/16 at 23:16; Status DC Cellulose 1 each STK-MED ONCE .ROUTE Last administered on 06/27/16 08:34; Start 06/27/16 at 06:46; Stop 06/27/16 at 06:47; Status DC Papaverine HCl 60 mg STK-MED ONCE .ROUTE Last administered on 06/27/16 08:34; Start 06/27/16 at 06:46; Stop 06/27/16 at 06:47; Status DC Aspirin (Aspirin) 300 mg STK-MED ONCE .ROUTE Last administered on 06/27/16 13: 50; Start 06/27/16 at 06:46; Stop 06/27/16 at 06:47; Status DC Vancomycin HCl (Vanco) 10 gm 1X ONCE CEMENT Last administered on 06/27/16 08: 34; Start 06/27/16 at 07:30; Stop 06/27/16 at 07:31; Status DC Etomidate (Amidate) 20 mg STK-MED ONCE IV ; Start 06/27/16 at 06:55; Stop at 06:56; Status DC Phenylephrine HCl (Gustavo-Synephrine Inj) 10 mg STK-MED ONCE .ROUTE ; Start at 06:55; Stop 06/27/16 at 06:56; Status DC Aminocaproic Acid (Amicar) 5,000 mg STK-MED ONCE IV ; Start 06/27/16 at 06:55; Stop 06/27/16 at 06:56; Status DC Midazolam HCl (Versed) 2 mg STK-MED ONCE .ROUTE ; Start 06/27/16 at 06:55; Stop 06/27/16 at 06:56; Status DC Fentanyl Citrate (Fentanyl 2ml Vial) 100 mcg STK-MED ONCE .ROUTE ; Start at 06:55; Stop 06/27/16 at 06:56; Status DC Epinephrine HCl (Adrenalin) 1 mg STK-MED ONCE .ROUTE ; Start 06/27/16 at 06:56; Stop 06/27/16 at 06:57; Status DC Rocuronium Lomita (Zemuron) 100 mg STK-MED ONCE .ROUTE ; Start 06/27/16 at 06: 56; Stop 06/27/16 at 06:57; Status DC Ephedrine Sulfate 50 mg STK-MED ONCE IV ; Start 06/27/16 at 06:56; Stop at 06:57; Status DC Sufentanil Citrate (Sufenta) 100 mcg STK-MED ONCE .ROUTE ; Start 06/27/16 at 06: 56; Stop 06/27/16 at 06:57; Status DC Heparin Sodium (Porcine) 04799 unit 30,000 unit STK-MED ONCE .ROUTE ; Start 03/03 at 06:59; Stop 06/27/16 at 07:00; Status DC Nitroglycerin/ Dextrose 250 ml @ As Directed STK-MED ONCE IV ; Start 06/27/16 at 07:02; Stop 06/27/16 at 07:03; Status DC Cefazolin Sodium/ Dextrose (Ancef 2gm Premix) 50 ml @ As Directed STK-MED ONCE IV ; Start 06/27/16 at 07:04; Stop 06/27/16 at 07:05; Status DC Epinephrine HCl 1 mg STK-MED ONCE .ROUTE ; Start 06/27/16 at 07:13; Stop at 07:14; Status DC Heparin Sodium (Porcine) 30,000 unit STK-MED ONCE .ROUTE ; Start 06/27/16 at 07: 14; Stop 06/27/16 at 07:15; Status DC Sodium Chloride (Sodium Chloride) 50 ml STK-MED ONCE IJ Last administered on 08:34; Start 06/27/16 at 07:25; Stop 06/27/16 at 07:26; Status DC Vancomycin HCl 10 gm 10 gm 1X ONCE CEMENT ; Start 06/27/16 at 07:45; Stop 06/27 at 07:46; Status DC Cefazolin Sodium/ Dextrose 50 ml @ 100 mls/hr 1X ONCE IV Last administered on 2/10/17at 08:15; Start 06/27/16 at 07:45; Stop 06/27/16 at 08:14; Status DC Mannitol (Mannitol Iv Soln) 500 ml @ 0 mls/hr 1X ONCE IV ; Start 06/27/16 at 08 :00; Stop 06/27/16 at 08:01; Status DC Midazolam HCl (Versed) 2 mg STK-MED ONCE .ROUTE ; Start 06/27/16 at 08:36; Stop 06/27/16 at 08:37; Status DC Rocuronium Lomita (Zemuron) 100 mg STK-MED ONCE .ROUTE ; Start 06/27/16 at 08: 47; Stop 06/27/16 at 08:48; Status DC Dexamethasone Sodium Phosphate (Decadron) 20 mg STK-MED ONCE .ROUTE ; Start 03/03 at 09:03; Stop 06/27/16 at 09:04; Status DC Protamine Sulfate 250 mg STK-MED ONCE IV ; Start 06/27/16 at 11:22; Stop at 11:23; Status DC Rocuronium Lomita 50 mg 50 mg STK-MED ONCE .ROUTE ; Start 06/27/16 at 11:30; Stop 06/27/16 at 11:31; Status DC Insulin Human Regular/Sodium Chloride (Novolin R Vial/ Iv Normal Saline 150ml) 151.5 ml @ 7.46 mls/hr CONT PRN IV SEE I/O RECORD; Start 06/27/16 at 12:15; Stop 06/27/16 at 14:35; Status DC Midazolam HCl (Versed) 2 mg STK-MED ONCE .ROUTE ; Start 06/27/16 at 12:11; Stop 06/27/16 at 12:12; Status DC Sodium Bicarbonate 50 meq STK-MED ONCE .ROUTE ; Start 06/27/16 at 12:31; Stop at 12:32; Status DC Protamine Sulfate 50 mg STK-MED ONCE IV ; Start 06/27/16 at 12:34; Stop at 12:35; Status DC Protamine Sulfate 50 mg 50 mg STK-MED ONCE IV ; Start 06/27/16 at 12:35; Stop at 12:36; Status DC Epinephrine HCl/ Sodium Chloride (Adrenalin/Iv Sodium Chloride 0.9% 250ml) 254 ml @ 3.81 mls/hr 1X ONCE IV ; Start 06/27/16 at 13:15; Stop 06/27/16 at 14:31 ; Status DC Lidocaine HCl (Xylocaine-Mpf 1% Vial) 5 ml STK-MED ONCE .ROUTE ; Start 06/27/16 at 13:04; Stop 06/27/16 at 13:05; Status DC Magnesium Sulfate 5 gm 5 gm STK-MED ONCE .ROUTE ; Start 06/27/16 at 13:04; Stop 06/27/16 at 13:05; Status DC Albumin Human (Albuminar) 200 ml @ As Directed STK-MED ONCE IV ; Start at 13:04; Stop 06/27/16 at 13:05; Status DC Sodium Bicarbonate 50 meq STK-MED ONCE .ROUTE ; Start 06/27/16 at 13:04; Stop at 13:05; Status DC Sodium Chloride 3 ml 3 ml PRN Q12HR PRN IV AFTER MEDS AND BLOOD DRAWS; Start at 13:00 Lactated Ringer's 1,000 ml @ 30 mls/hr Q24H IV Last administered on 06/28/16t 19:32; Start 06/27/16 at 12:50; Stop 06/30/16 at 12:33; Status DC Insulin Human Regular/Sodium Chloride (Novolin R Vial/ Iv Normal Saline 150ml) 151.5 ml @ 0 mls/hr CONT PRN PRN IV SEE I/O RECORD; Start 06/27/16 at 13:00; Stop 06/29/16 at 12:21; Status DC Dextrose 25 gm 25 gm PRN Q15MIN PRN IV LOW BLOOD SUGAR; Start 06/27/16 at 13:00 ; Stop 06/30/16 at 14:43; Status DC Nitroglycerin/ Dextrose 250 ml @ 0 mls/hr CONT PRN PRN IV SEE I/O RECORD; Start 06/27/16 at 13:00; Stop 06/30/16 at 12:33; Status DC Dopamine HCl/ Dextrose 250 ml @ 0 mls/hr CONT PRN PRN IV SEE I/O RECORD; Start 06/27/16 at 13:00; Stop 06/30/16 at 12:33; Status DC Dobutamine HCl/ Dextrose 250 ml @ 0 mls/hr CONT PRN PRN IV SEE I/O RECORD; Start 06/27/16 at 13:00; Stop 06/30/16 at 12:32; Status DC Phenylephrine HCl 20 mg/Sodium Chloride 252 ml @ 0 mls/hr CONT PRN PRN IV HYPOTENSION; Start 06/27/16 at 13:00; Stop 06/28/16 at 20:15; Status DC Epinephrine HCl 4 mg/Sodium Chloride 254 ml @ 0 mls/hr CONT PRN PRN IV POST CV SURGERY; Start 06/27/16 at 13:00; Stop 06/30/16 at 12:32; Status DC Amiodarone HCl 150 mg/Dextrose 103 ml @ 200 mls/hr 1X PRN PRN IV FOR RUNS OF VT; Start 06/27/16 at 13:00; Stop 06/27/16 at 13:13; Status DC Amiodarone HCl 900 mg/Dextrose 518 ml @ 33.33 mls/ hr CONT PRN PRN IV RUNS OF VT; Start 06/27/16 at 13:00; Stop 06/27/16 at 13:13; Status DC Amiodarone HCl 150 mg/Dextrose 103 ml @ 200 mls/hr 1X PRN PRN IV [place] Last administered on 06/27/16 15:47; Start 06/27/16 at 13:00 Amiodarone HCl/ Dextrose (Cordarone) 518 ml @ 33.33 mls/ hr CONT PRN PRN IV SEE COMMENTS Last administered on 06/27/16 15:49; Start 06/27/16 at 13:00; Stop 06/29/16 at 12:20; Status DC Info 1 ea CONT PRN PRN MC SEE COMMENTS; Start 06/27/16 at 13:00; Stop 06/30/16 at 12:32; Status DC Info 1 ea 1 ea CONT PRN PRN MC SEE COMMENTS; Start 06/27/16 at 13:00; Stop at 12:32; Status DC Magnesium Sulfate/ Dextrose (Magnesium Sulfate PREMIX 1GM) 100 ml @ 100 mls/hr PRN DAILY PRN IV FOR MAG < 2.2; Start 06/27/16 at 13:00; Stop 06/30/16 at 12:32 ; Status DC Famotidine (Pepcid) 20 mg BID IVP ; Start 06/27/16 at 21:00; Stop 06/27/16 at 21 :00; Status DC Ondansetron HCl (Zofran) 4 mg PRN Q4HRS PRN IV NAUSEA/VOMITING Last administered on 06/28/16 13:15; Start 06/27/16 at 13:00 Morphine Sulfate 2 mg PRN Q1HR PRN IV PAIN Last administered on 06/27/16 23:14 ; Start 06/27/16 at 13:00 Acetaminophen (Tylenol) 650 mg PRN Q4HRS PRN PO MILD PAIN / TEMP; Start at 13:00 Acetaminophen (Tylenol) 650 mg PRN Q4HRS PRN [place] MILD PAIN / TEMP; Start at 13:00; Stop 06/30/16 at 12:35; Status DC Meperidine HCl 12.5 mg 12.5 mg PRN Q15MIN PRN IV SHIVERING; Start 06/27/16 at 13:00; Stop 06/28/16 at 13:00; Status DC Propofol (Diprivan) 100 ml @ 0 mls/hr CONT PRN PRN IV POSTOP SEDATION UNTIL EXTUBATE; Start 06/27/16 at 13:00; Stop 06/30/16 at 12:32; Status DC Senna/Docusate Sodium (Senna Plus) 1 tab BID PO Last administered on 07/01/16 08:02; Start 06/27/16 at 21:00 Bisacodyl (Dulcolax Supp) 10 mg PRN DAILY PRN [place] NO BOWEL MOVEMENT; Start 06/27 at 13:00 Aspirin (Ecotrin) 325 mg DAILYWBKFT PO Last administered on 07/01/16 08:01; Start 06/28/16 at 08:00 Aspirin (Aspirin) 300 mg PRN DAILY PRN [place] IF UNABLE TO TAKE PO; Start 06/27/16 at 13:00; Stop 06/30/16 at 14:43; Status DC Metoprolol Tartrate 25 mg 25 mg BID PO Last administered on 06/28/16 10:28; Start 06/28/16 at 09:00; Stop 06/29/16 at 15:43; Status DC Clevidipine (Cleviprex) 100 ml @ 0 mls/hr CONT PRN IV PER PROTOCOL; Start 06/27 at 13:00; Stop 06/30/16 at 12:32; Status DC Acetaminophen/ Hydrocodone Bitart (Lortab 5/325) 1 tab PRN Q4HRS PRN PO MILD PAIN Last administered on 06/29/16 16:01; Start 06/27/16 at 13:00 Acetaminophen/ Hydrocodone Bitart 2 tab 2 tab PRN Q4HRS PRN PO MODERATE PAIN, SEVERE PAIN Last administered on 07/01/16 10:22; Start 06/27/16 at 13:00 Cefazolin Sodium/ Sodium Chloride (Ancef/Iv Sodium Chloride 0.9% 50ml) 50 ml @ 100 mls/hr Q8H IV ; Start 06/27/16 at 16:00; Stop 06/27/16 at 16:00; Status DC Hydromorphone HCl (Dilaudid) 0.2 mg PRN Q1HR PRN IVP PAIN Last administered on 06/29/16 09:23; Start 06/27/16 at 13:00; Stop 06/29/16 at 10:39; Status DC Hydromorphone HCl (Dilaudid) 0.4 mg PRN Q1HR PRN IVP PAIN; Start 06/27/16 at 13 :00; Stop 06/29/16 at 10:39; Status DC Midazolam HCl 2 mg 2 mg STK-MED ONCE .ROUTE ; Start 06/27/16 at 13:47; Stop 03/03 at 13:48; Status DC Albumin Human 250 ml @ 62.5 mls/hr 1X ONCE IV Last administered on 06/27/16 15:28; Start 06/27/16 at 15:00; Stop 06/27/16 at 18:59; Status DC Cefazolin Sodium 1 gm/Sodium Chloride 50 ml @ 100 mls/hr Q8H IV Last administered on 06/29/16 03:15; Start 06/27/16 at 19:00; Stop 06/29/16 at 03:29 ; Status DC Potassium Chloride 50 ml @ 0 mls/hr Q1H IV Last administered on 06/27/16 18:05 ; Start 06/27/16 at 15:15; Stop 06/27/16 at 18:16; Status DC Calcium Chloride 1000 mg/Sodium Chloride 60 ml @ 120 mls/hr 1X ONCE IV ; Start 06/27/16 at 15:15; Stop 06/27/16 at 15:44; Status Cancel Amiodarone HCl 150 mg/Dextrose 103 ml @ 200 mls/hr 1X PRN PRN IV [place]; Start 03/03 at 15:30; Stop 06/27/16 at 15:30; Status DC Amiodarone HCl 150 mg/Dextrose 103 ml @ 200 mls/hr 1X ONCE IV Last administered on 06/27/16 15:30; Start 06/27/16 at 15:30; Stop 06/27/16 at 16:00 ; Status DC Calcium Gluconate/ Sodium Chloride (Iv Sodium Chloride 0.9% 100ml) 110 ml @ 220 mls/hr 1X ONCE IV Last administered on 06/27/16 15:49; Start 06/27/16 at 15:30; Stop 06/27/16 at 15:59; Status DC Famotidine (Pepcid) 20 mg BID PO Last administered on 07/01/16 08:02; Start at 21:00 Furosemide (Lasix) 40 mg Q12H IVP Last administered on 06/28/16 07:01; Start 06/28/16 at 07:00; Stop 06/28/16 at 15:21; Status DC Ketorolac Tromethamine 30 mg 30 mg PRN Q6HRS PRN IV PAIN Last administered on 11:06; Start 06/28/16 at 10:45; Stop 06/28/16 at 15:21; Status DC Albumin Human (Plasmanate) 500 ml @ 125 mls/hr 1X ONCE IV Last administered on 06/28/16 13:45; Start 06/28/16 at 13:45; Stop 06/28/16 at 17:44; Status DC Prochlorperazine Edisylate (Compazine) 10 mg PRN Q6HRS PRN IV NAUSEA/VOMITING; Start 06/28/16 at 14:45 Prochlorperazine Edisylate 10 mg 10 mg 1X STAT IV Last administered on 14:53; Start 06/28/16 at 14:34; Stop 06/28/16 at 14:38; Status DC Phenylephrine HCl/ Sodium Chloride (Gustavo-Synephrine Inj/Iv Sodium Chloride 0.9% 250ml) 252 ml @ 0 mls/hr CONT PRN IV SEE I/O RECORD Last administered on 16:02; Start 06/28/16 at 14:45; Stop 06/30/16 at 14:43; Status DC Furosemide (Lasix) 20 mg Q12H IVP ; Start 06/28/16 at 19:00; Stop 06/29/16 at 15 :42; Status DC Ketorolac Tromethamine (Toradol) 15 mg PRN Q6HRS PRN IV PAIN Last administered on 06/28/16 17:14; Start 06/28/16 at 15:30; Stop 06/29/16 at 15:42; Status DC Amiodarone HCl (Cordarone) 200 mg BID PO Last administered on 06/29/16 08:45; Start 06/28/16 at 21:00; Stop 06/29/16 at 15:42; Status DC Simethicone (Gas-X) 160 mg PRN AFTMEALHC PO ; Start 06/28/16 at 18:00 Furosemide (Lasix) 20 mg 1X ONCE IVP Last administered on 06/28/16 23:18; Start 06/28/16 at 23:15; Stop 06/28/16 at 23:16; Status DC Insulin Aspart (Novolog) 0-5 UNITS TIDWMEALS SQ Last administered on 06/29/16 18:42; Start 06/29/16 at 17:00; Stop 06/30/16 at 14:43; Status DC Dextrose 12.5 gm PRN Q15MIN PRN IV SEE COMMENTS; Start 06/29/16 at 12:30; Stop 06/30/16 at 14:43; Status DC Amiodarone HCl (Cordarone) 200 mg DAILY PO ; Start 06/30/16 at 09:00; Stop 06/30 at 09:00; Status DC Metoprolol Tartrate (Lopressor) 12.5 mg BID PO Last administered on 06/30/16 09:13; Start 06/29/16 at 21:00; Stop 06/30/16 at 10:32; Status DC Amiodarone HCl 200 mg 200 mg DAILY PO Last administered on 07/01/16 08:01; Start 06/30/16 at 09:00 Potassium Chloride (KCl Premix 20meq) 50 ml @ 50 mls/hr Q1H IV Last administered on 06/30/16 09:16; Start 06/30/16 at 08:00; Stop 06/30/16 at 09:59 ; Status DC Cefazolin Sodium/ Dextrose (Ancef 2gm Premix) 2 gm STK-MED ONCE IV ; Start 06/27 at 12:10; Stop 06/30/16 at 08:46; Status DC Metoprolol Tartrate (Lopressor) 25 mg BID PO ; Start 06/30/16 at 21:00; Stop at 21:00; Status DC Metoprolol Tartrate (Lopressor) 12.5 mg BID PO Last administered on 07/01/16 08:01; Start 06/30/16 at 21:00 Active Scripts Active Reported Niaspan (Niacin) 500 Mg Tab.er.24h 1 Tab PO DAILY Excedrin Migraine Caplet (Aspirin/Acetaminophen/Caffeine) 1 Each Tablet 1 Each PO PRN DAILY PRN Vitals/I & O Vital Sign - Last 24 Hours 06/30/16 06/30/16 06/30/16 06/30/16 13:00 14:00 15:28 20:00 Temp 97.8 98.2 98.1 97.8 98.2 98.1 Pulse 90 93 87 96 Resp 16 12 B/P 109/73 112/71 119/73 Pulse Ox 94 94 95 O2 Delivery Room Air Room Air Room Air Room Air 06/30/16 06/30/16 06/30/16 07/01/16 20:00 21:08 23:00 03:00 Temp 97.9 97.4 97.9 97.4 Pulse 100 98 95 Resp 16 12 B/P 119/73 115/75 99/70 Pulse Ox 94 96 O2 Delivery Room Air Room Air Room Air 07/01/16 07/01/16 07/01/16 07/01/16 07:19 08:01 08:01 08:15 Temp 98.6 98.6 Pulse 103 103 103 Resp 20 B/P 156/96 156/96 156/96 Pulse Ox 100 O2 Delivery Room Air Room Air 2/1407/01/16 07/01/16 07/01/16 10:00 10:22 11:24 11:48 Temp 98.5 98.5 Pulse 101 Resp 20 18 16 B/P 115/81 Pulse Ox 96 94 O2 Delivery Room Air Room Air Room Air Room Air Intake and Output 06/30/16 06/30/16 07/01/16 15:00 23:00 07:00 Intake Total 580 ml 60 ml Output Total 600 ml Balance -20 ml 60 ml EDILMA ROY MD Jul 01, 2016 12:41
--- NOTE | 2016-07-01 13:52 | PDOC ---
Progress Note Subjective Subjective Doing very well. On RA. Normotensive and in sinus rhythm. No issues ROS ROS No nausea No vomiting No pain No rash Vital Sign Vital Signs Vital Signs Date Time Temp Pulse Resp B/P Pulse Ox O2 Delivery O2 Flow Rate FiO2 07/01/16 11:48 16 Room Air 07/01/16 11:24 98.5 101 115/81 94 98.5 Physical Exam PHYSICAL EXAM Sternotomy: C/D/I, stable Lower extremities: no edema, incision: C/D/I Objective Assessment POD#4, s/p CABG x 3 (SVG to LAD, SVG to OM2, SVG to distal RCA), doing very well. No issues. Normotensive and NSR, on room air. Plan Plan of Care D/c home tomorrow with 25mg Lopressor BID, ASA, statin. Will stop amiodarone for Afib prophylaxis prior to home discharge Patient has not had a bowel movement since surgery. We will add oral Dulcolax to bowel regimen. He will need follow up for incidentally found lung nodules on preoperative CT. Most of these nodules are calcified which makes them benign, although there are a few that are not calcified. Would recommend next non contrast CT in 3 months. He can follow up with me. JESS KEEN MD Jul 01, 2016 13:52
[2016-07-01 15:22] VITALS: BP 133/86
[2016-07-01] MEDS: BISACODYL 5 MG TABLET.DR. PO SCH (17:38)
[2016-07-01 19:59] VITALS: BP 157/89
[2016-07-01] MEDS: ATORVASTATIN CALCIUM 40 MG TABLET. PO SCH (20:07)
[2016-07-01 23:27] VITALS: BP 140/86
[2016-07-02 03:08] VITALS: BP 150/76
[2016-07-02 06:53] LABS: BASO # 0.1 x10^3/uL (0.0-0.2); BASO % 1 % (0-3); EOS % 5 % (0-3); HEMATOCRIT 33.3 % (39.0-53.0); HEMOGLOBIN 10.9 g/dL (13.0-17.5); LYMPH # 0.8 x10^3/uL (1.0-4.8); LYMPH % 11 % (24-48); MEAN CORPUSCULAR HEMOGLOBIN 29 pg (25-35); MEAN CORPUSCULAR HGB CONC 33 g/dL (31-37); MEAN CORPUSCULAR VOLUME 88 fL (79-100); MONO % 14 % (0-9); NEUT % 69 % (31-73); PLATELET COUNT 237 x10^3/uL (140-400); RED BLOOD COUNT 3.79 x10^6/uL (4.30-5.70); RED CELL DISTRIBUTION WIDTH 14.5 % (11.5-14.5); WHITE BLOOD COUNT 7.4 x10^3/uL (4.0-11.0)
[2016-07-02 07:08] LABS: CALCIUM 8.8 mg/dL (8.5-10.1); GFR 76.7; POTASSIUM 3.9 mmol/L (3.5-5.1)
[2016-07-02 07:38] VITALS: BP 138/103
[2016-07-02] MEDS ORDERED: METOPROLOL TART IMMED RELEASE 25 MG TABLET PO SCH (09:00)
[2016-07-02] MEDS: SENNOSIDES/DOCUSATE 8.6/50MG TABLET. PO SCH (09:55)
[2016-07-02] MEDS: ASPIRIN ENTERIC COATED 325 MG TABLET.DR. PO SCH (09:56)
[2016-07-02] MEDS: FAMOTIDINE 20 MG TABLET. PO SCH (09:56)
[2016-07-02] MEDS: BISACODYL 5 MG TABLET.DR. PO SCH (09:56)
[2016-07-02] MEDS: AMIODARONE HCL 200 MG TABLET PO SCH (09:57)
[2016-07-02] MEDS ORDERED: POLYETHYLENE GLYCOL 3350 17 GM PACKET. PO ONE (10:00)
--- NOTE | 2016-07-02 10:56 | PDOC ---
CARDIO Progress Notes Date and Time Date of Service 07/02/2016 Time of Evaluation 0930 Subjective Subjective: No Chest Pain, No shortness of breath, No Palpitations, No Dizziness, Other (feels constipated, hard stools; tolerating increased ambulation) Vitals Vitals Vital Signs Date Time Temp Pulse Resp B/P Pulse Ox O2 Delivery O2 Flow Rate FiO2 07/02/16 10:01 111 138/103 07/02/16 07:38 97.9 20 94 Room Air 97.9 Weight Weight [ ] Input and Output Intake and Output Intake and Output 07/02/16 07:00 Intake Total 0 ml Output Total 800 ml Balance -800 ml Intake Oral 0 ml Output Urine Total 800 ml # Voids 1 Laboratory Labs Laboratory Tests Test 07/02/16 06:14 White Blood Count 7.4x10^3/uL (4.0-11.0) Red Blood Count 3.79x10^6/uL (4.30-5.70) Hemoglobin 10.9g/dL (13.0-17.5) Hematocrit 33.3% (39.0-53.0) Mean Corpuscular Volume 88fL (79-100) Mean Corpuscular Hemoglobin 29pg (25-35) Mean Corpuscular Hemoglobin Concent 33g/dL (31-37) Red Cell Distribution Width 14.5% (11.5-14.5) Platelet Count 237x10^3/uL (140-400) Neutrophils (%) (Auto) 69% (31-73) Lymphocytes (%) (Auto) 11% (24-48) Monocytes (%) (Auto) 14% (0-9) Eosinophils (%) (Auto) 5% (0-3) Basophils (%) (Auto) 1% (0-3) Neutrophils # (Auto) 5.1x10^3uL (1.8-7.7) Lymphocytes # (Auto) 0.8x10^3/uL (1.0-4.8) Monocytes # (Auto) 1.1x10^3/uL (0.0-1.1) Eosinophils # (Auto) 0.3x10^3/uL (0.0-0.7) Basophils # (Auto) 0.1x10^3/uL (0.0-0.2) Sodium Level 140mmol/L (136-145) Potassium Level 3.9mmol/L (3.5-5.1) Chloride Level 104mmol/L (98-107) Carbon Dioxide Level 28mmol/L (21-32) Anion Gap 8 (6-14) Blood Urea Nitrogen 16mg/dL (8-26) Creatinine 1.0mg/dL (0.7-1.3) Estimated GFR (Cockcroft-Gault) 76.7 Glucose Level 100mg/dL (70-99) Calcium Level 8.8mg/dL (8.5-10.1) Physical Exam HEENT: Neck Supple W Full Motion Chest: Symmetric LUNGS: Other (faint bibasilar crackles) Heart: S1S2, RRR (no significant rhythm ectopies overnight. SR, sinus tach) Abdomen: Soft N/T Extremities: No Calf Tenderness, Other (1+ bilateral LE pitting edema) Neurology: alert, oriented, follow commands Assessment Assessment 1. STEMI with 3VD: stable 2. S/P CABG: POD#5, 3. Postoperative anemia: stable Hgb at 9.5 4. Constipation Recommendation 1. Continue post CABG treatment protocol. DC amiodarone. 2. Meds as follows, Rx provided, Metoprolol 25 mg po bid, ECASA 325 mg, Atorvastatin 40 mg qhs. 3. Cardiac rehab. Will consider for ACEi pending BP trend. Encourage home BP monitoring. 4. Anticipate DC today. Follow up established with CTS in 3 weeks with CXR prior to visit and cardiology follow up in 4 weeks. 5. Miralax PRN. MURRAY ANN APRN Jul 02, 2016 10:56
[2016-07-02 11:33] VITALS: BP 135/106
[2016-07-02] MEDS ORDERED: ATOR40TA59 PO (11:55)
[2016-07-02] MEDS ORDERED: ASPI325T11 PO (11:55)
[2016-07-02] MEDS ORDERED: METO25TA4 PO (11:55)
[2016-07-02] MEDS ORDERED: HYDR-2666 PO (11:56)
--- NOTE | 2016-07-02 13:38 | PDOC ---
Progress Note Subjective Subjective Doing very well. On RA. Normotensive and in sinus rhythm. No issues. Had bowel movement. ROS ROS No nausea No vomiting No pain No rash Vital Sign Vital Signs Vital Signs Date Time Temp Pulse Resp B/P Pulse Ox O2 Delivery O2 Flow Rate FiO2 07/02/16 11:33 98.2 97 19 135/106 95 Room Air 98.2 Physical Exam PHYSICAL EXAM Sternotomy: C/D/I, stable Lower extremities: no edema, incision: C/D/I Labs Lab Laboratory Tests Test 07/02/16 06:14 White Blood Count 7.4x10^3/uL (4.0-11.0) Red Blood Count 3.79x10^6/uL (4.30-5.70) Hemoglobin 10.9g/dL (13.0-17.5) Hematocrit 33.3% (39.0-53.0) Mean Corpuscular Volume 88fL (79-100) Mean Corpuscular Hemoglobin 29pg (25-35) Mean Corpuscular Hemoglobin Concent 33g/dL (31-37) Red Cell Distribution Width 14.5% (11.5-14.5) Platelet Count 237x10^3/uL (140-400) Neutrophils (%) (Auto) 69% (31-73) Lymphocytes (%) (Auto) 11% (24-48) Monocytes (%) (Auto) 14% (0-9) Eosinophils (%) (Auto) 5% (0-3) Basophils (%) (Auto) 1% (0-3) Neutrophils # (Auto) 5.1x10^3uL (1.8-7.7) Lymphocytes # (Auto) 0.8x10^3/uL (1.0-4.8) Monocytes # (Auto) 1.1x10^3/uL (0.0-1.1) Eosinophils # (Auto) 0.3x10^3/uL (0.0-0.7) Basophils # (Auto) 0.1x10^3/uL (0.0-0.2) Sodium Level 140mmol/L (136-145) Potassium Level 3.9mmol/L (3.5-5.1) Chloride Level 104mmol/L (98-107) Carbon Dioxide Level 28mmol/L (21-32) Anion Gap 8 (6-14) Blood Urea Nitrogen 16mg/dL (8-26) Creatinine 1.0mg/dL (0.7-1.3) Estimated GFR (Cockcroft-Gault) 76.7 Glucose Level 100mg/dL (70-99) Calcium Level 8.8mg/dL (8.5-10.1) Objective Assessment POD#5, s/p CABG x 3 (SVG to LAD, SVG to OM2, SVG to distal RCA), doing very well. No issues. Normotensive and NSR. Plan Plan of Care D/c home today Routine postop f/u in 3 weeks He will also need follow up for incidentally found lung nodules on preoperative CT. Most of these nodules are calcified which makes them benign, although there are a few that are not calcified. Would recommend next non contrast CT in 3 months. He can follow up with me. JESS KEEN MD Jul 02, 2016 13:38
[2016-07-02 13:39] VITALS: BP 145/92
--- NOTE | 2016-07-02 14:24 | PDOC3 ---
Discharge Summary [facility] Date of Admission: Jun 24, 2016 Discharge Date: Jul 02, [address] elevation [place], anterior wall 2. 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 3. Severe cardiomyopathy, ischemic 4. anemia, expected post sx Problems: Final Diagnosis Problems Medical Problems: (1) CAD (coronary artery disease) Status: Acute CONSULTS card ct Procedures cabg Brief Hospital Course Mr. Ramirez is a 56 old M, comes for chest pain, was found STEMI, Echo showed EF 35%. Pt got 3 vessles CABG, heals well. dc home with asa, metoprolol, lipitor. received short term of amiodarone post op dc time 40min Physical Exam Sternotomy: C/D/I, stable Lower extremities: no edema, incision: C/D/I General: Alert, Oriented X3, Cooperative, No acute distress Heart: Regular rate, Normal S1, Normal S2, No murmurs Lungs: Clear Abdomen: Normal bowel sounds, Soft, No tenderness Extremities: No edema Skin: No significant lesion Patient History: CABG G8 SISTER, Onset:50's - 60 CVA G8 BROTHER, Onset:Unknown 33 FATHER, , Age:60 years and older, Onset:Unknown 32 MOTHER, , Age:60 years and older, Onset:60 years & older Coronary artery disease G8 SISTER, Onset:50's - 60 Heart attack 33 FATHER, , Age:60 years and older, Onset:60 years & older Lung disease 32 MOTHER, , Age:60 years and older, Onset:Unknown No significant family history G8 SISTER Problems: Disposition home CONDITION AT DISCHARGE: Improved Diet cardiac Scheduled Aspirin (Aspirin Ec) 325 MG PO DAILYWBKFT Atorvastatin Calcium (Atorvastatin Calcium) 40 MG PO QHS Metoprolol Tartrate (Metoprolol Tartrate) 25 MG PO BID Scheduled PRN Hydrocodone Bit/Acetaminophen (Hydrocodone-Apap 5-325 ) 2 TAB PO PRN Q4HRS PRN PRN MODERATE PAIN, SEVERE PAIN Discontinued Medications Aspirin/Acetaminophen/Caffeine (Excedrin Migraine Caplet) 1 EACH PO PRN DAILY PRN PRN HEADACHE (Reported) Niacin (Niaspan) 1 TAB PO DAILY (Reported) Follow Up ct in 2 weeks EDILMA ROY MD Jul 02, 2016 14:24
[2016-07-02] MEDS ORDERED: LISI-338 PO (15:13)
[2016-07-02] MEDS ORDERED: LISINOPRIL 5 MG TABLET. PO SCH (21:00)
--- NOTE | 2016-07-11 13:08 | CARD ---
APPROVED REPORT Procedure(s) performed: Left Heart Catheterization, selective coronary angiography and left ventricul ography INDICATION The indication(s) include : STEMI (>0 to less than or equal to 6 hours). PROCEDURE NARRATIVE After explaining the risks, benefits and alternative options, informed consent was obtained from maya ent. Patient was brought to the cardiac Impact Hammer Operator and his right groin was prepped and draped in the u sual fashion. 10 mL of 2% lidocaine was infiltrated into the skin and subcutaneous tissues for local anesthesia. Arterial access was obtained in the right common femoral artery and a 6 [place] sheath w as inserted. 6 [place] JL4 and 6 [place] JR4 catheters were used to perform selective angiography of t he left and right coronary arteries. 6 [place] pigtail catheter was used to perform left ventriculogr aphy. The following findings were noted. FINDINGS 1. Hemodynamics: Left ventricle end-diastolic pressure 25 mmHg. No pullback gradient across the ao rtic valve. 2. Left ventriculography: Severe hypokinesis of the mid to distal anterolateral wall and apical wal l with ejection fraction estimated at 30%. No significant mitral regurgitation seen. 3. Coronary angiography: a. The left main coronary artery arose from the left sinus of Valsalva, gave rise to the left anteri or descending and left circumflex arteries and did not show any significant stenosis. b. The left anterior descending artery showed 70% ostial segment stenosis, tandem 90% stenoses in th e proximal segment, 95% critical midsegment stenosis and a long 80% stenosis involving the mid to dis aimee segment. c. The left circumflex artery showed 80% stenosis in the midsegment. d. The right coronary artery arose from the right sinus of Valsalva that showed a chronic total occl usion in the midsegment with distal reconstitution from right to right collaterals. Conclusion 1. Severe three-vessel coronary artery disease 2. Severe hypokinesis of the mid to distal anterolateral wall and apical wall with ejection fraction estimated at 30% Recommendations Since patient had flow restored spontaneously in the left anterior descending artery that appeared to be the culprit vessel for patient's presentation of STEMI and was chest pain-free with resolution of ST elevations on EKG, we will monitor patient in the intensive care unit closely with heparin and Ag grastat infusions per protocol and consult CT surgery for possible coronary artery bypass surgery. Electronically Approved : 07/11/2016 11:37:46
== END 2016-07-02 14:00 | disposition home or self-care (01) | DRG 233 ==
LOC: 1 WEST ICU 23:17 → 2 NORTH 06-25 19:50 → 1 WEST ICU 06-26 22:20 → 2 SOUTH 07-01 09:28
PROVIDERS: ADMIT Internal Medicine; ATTEND Internal Medicine
PROC: 4A023N7 Measurement of Cardiac Sampling and Pressure, Left Heart, Percutaneous Approach (ICD-10-PCS; 2016-06-27)
PROC: 06BQ4ZZ Excision of Left Saphenous Vein, Percutaneous Endoscopic Approach (ICD-10-PCS; 2016-06-27)
PROC: 0BP1XDZ Removal of Intraluminal Device from Trachea, External Approach (ICD-10-PCS; 2016-06-27)
PROC: 5A1221Z Performance of Cardiac Output, Continuous (ICD-10-PCS; 2016-06-27)
PROC: B2111ZZ Fluoroscopy of Multiple Coronary Arteries using Low Osmolar Contrast (ICD-10-PCS; 2016-06-27)
PROC: 0W9B30Z Drainage of Left Pleural Cavity with Drainage Device, Percutaneous Approach (ICD-10-PCS; 2016-06-27)
PROC: 5A1935Z Respiratory Ventilation, Less than 24 Consecutive Hours (ICD-10-PCS; 2016-06-27)
PROC: 021209W Bypass Coronary Artery, Three Arteries from Aorta with Autologous Venous Tissue, Open Approach (ICD-10-PCS; principal; 2016-06-27 07:30)
DX: I21.09 ST elevation (STEMI) myocardial infarction involving other coronary artery of anterior wall (principal); I50.21 Acute systolic (congestive) heart failure; I25.10 Atherosclerotic heart disease of native coronary artery without angina pectoris; I25.5 Ischemic cardiomyopathy; D64.9 Anemia, unspecified; K59.00 Constipation, unspecified; I95.1 Orthostatic hypotension; E78.5 Hyperlipidemia, unspecified; E87.6 Hypokalemia; Z82.3 Family history of stroke; Z82.49 Family history of ischemic heart disease and other diseases of the circulatory system; Z79.82 Long term (current) use of aspirin; Z79.899 Other long term (current) drug therapy; Z88.2 Allergy status to sulfonamides; I25.2 Old myocardial infarction; Z87.891 Personal history of nicotine dependence; I11.0 Hypertensive heart disease with heart failure
CPT/HCPCS: 36415; 36600; 71010; 71250; 80048; 80061; 80076; 82550; 82803; 82805; 82947; 83735; 84132; 84443; 85027; 85347; 85384; 85520; 85610; 85730; 86850; 86900; 86901; 86920; 87641; 90686; 90732; 93005; 93306; 93458; 93880; 93970; 94250; 94760; C1769; C1771; C1781; C1892; G0269; J0171; J0282; J0610; J0690; J0780; J1100; J1170; J1644; J1815; J1885; J1940; J2250; J2270; J2405; J2440; J3010; J3370; J3475; J3480; J3490; J7030; J7040; J7050; J7120; P9041; P9045; P9046; J3246

== ENCOUNTER → 2016-07-18 | Outpatient (CLI) | payer OTHER ==
[2016-07-02 13:39] VITALS: BP 145/92
[~2016-07-18] MED LIST changes: -ALBUMIN HUMAN 5% 12.5 G/250 ML VIAL. IV ONE; +ASPI1TAB30 PO; +ASPI325T11 PO; +ATOR40TA59 PO; -FENTANYL PF 100 MCG/2 ML VIAL. ONE; +HYDR-2666 PO; -IODIXANOL 320 MG/ML 100 ML VIAL. ONE; -LIDOCAINE 2% 20 ML VIAL. ONE; +LISI-338 PO; +METO25TA4 PO; -MIDAZOLAM HCL 2 MG/2 ML VIAL. ONE; +NIAC500T PO; -NITROGLYCERIN 50 MG/250 ML IV ONE
--- NOTE | 2016-07-18 12:59 | RAD ---
Exam performed: 2 views of the chest. Indication: CORONARY ARTERY BYPASS GRAFTING Date of Service:07/18/2016 2:00 AM . Comparison : 06/30/16 Findings: PA and lateral radiographs of the chest reveal a normal cardiomediastinal contour. Previous median sternotomy. Scarring in the left lung base with calcifications in the right lung. The lungs are otherwise clear. No pleural fluid is seen. The visualized osseous structures are unremarkable. Impression: No acute cardiopulmonary process seen.. Stable chronic changes.
== END | disposition home or self-care (01) ==
LOC: RAD 12:05
PROVIDERS: ATTEND Thoracic Surgery (Cardiothoracic Vascular Surgery)
DX: Z95.1 Presence of aortocoronary bypass graft (principal)
CPT/HCPCS: 71020

== ENCOUNTER 2021-05-01 21:01 | Emergency (ER) | payer OTHER ==
[~2021-05-01 21:01] MED LIST changes: -ASPI1TAB30 PO; +ASPI1TAB31 PO; -HYDR-2666 PO; +HYDR-2761 PO; -LISI-338 PO; +LISI5TAB15 PO
== END 2021-05-01 21:17 | disposition left against medical advice (07) ==
LOC: ER 21:01
DX: I63.9 Cerebral infarction, unspecified (principal); Z53.21 Procedure and treatment not carried out due to patient leaving prior to being seen by health care provider